=== PATIENT | female | born 1975 | race Caucasian/White ===

== ENCOUNTER 2018-03-02 21:01 | Emergency (ER) | payer MEDICAID, SELFPAY ==
[2018-03-02 21:02] VITALS: BP 147/102; PULSE 79; RESP 18; TEMP 36.5; O2SAT 100; BMI 34.2
--- NOTE | 2018-03-02 21:25 | ED.VISSUMM ---
- ER Visit Summary Date of Service: 03/02/18 Chief Complaint: Left leg pain History of Present Illness: The patient is a 42 F who goes to the [facility]. She reports that she noticed bruising of the medial side of her left leg 3 days ago. She denies any trauma. No fall, MVA, or change in activity. She reports that she has sharp pain is 3 out of 10 when she touches it. She is pain-free otherwise. She denies any paresthesias distally. She is concerned that she may have a DVT. She has never had a DVT, but her father has. No recent travel. No ankle swelling. No chest pain or shortness of breath. Physical Examination: Vitals: Stable. Afebrile. General: Well-nourished and well-developed. Head: Normocephalic atraumatic. Neck: Supple, no lymphadenopathy. No JVD. Nontender. Cardiovascular: Regular rate and rhythm. No murmurs. Respiratory: No respiratory distress. Clear to auscultation bilaterally. Abdominal: Soft, nontender, nondistended, normal bowel sounds. No guarding, rebound, or peritoneal signs. Back: Nontender. Extremities: Approximately 8 cm contusion to the medial left calf proximally. no edema. Skin: Normal color, no rash. Neurologic: Alert and oriented ?3. Cranial nerves II through XII are intact. Normal strength and sensation. Psych: Normal affect. Test Results: Left lower extremity Doppler was negative. Emergency Department Course and Treatment: Patient was reassured. She refused pain medications. Treatment Plan: Patient be discharged instructions to follow-up the [facility] as needed. Disposition: To home in improved and stable condition. Impression: 1. Contusion left leg. This note was generated with [employer] software. It may contain incorrect words, spelling, and punctuation that were not noted in review of the chart prior to signing ED Disposition - Plan for ED Patient: Chief Complaint: Lower Extremity Injury Instructions: ED Contusion Lower Ext Referrals: [facility] [NON-STAFF] - As Needed
== END 2018-03-02 22:00 | disposition home or self-care (01) ==
PROVIDERS: Emergency Provider Emergency Medicine
DX: S80.12XA Contusion of left lower leg, initial encounter (principal); E11.9 Type 2 diabetes mellitus without complications; G62.9 Polyneuropathy, unspecified; Z79.4 Long term (current) use of insulin; Z79.899 Other long term (current) drug therapy; X58.XXXA Exposure to other specified factors, initial encounter; Y93.9 Activity, unspecified; Y92.9 Unspecified place or not applicable; Y99.9 Unspecified external cause status
CPT/HCPCS: 93971; 99282

== ENCOUNTER 2018-05-08 11:11 | Emergency (ER) | payer SELFPAY ==
[2018-05-08 11:13] VITALS: BP 167/88; PULSE 81; RESP 18; TEMP 36.4; O2SAT 95; BMI 34.7
[2018-05-08] MEDS: 0.9% Normal Saline 1,000 ML 1000 ML IV (11:47)
[2018-05-08 12:02] LABS: Absolute Lymphocyte Count 2.27 X10^3/ul (0.83-4.51); Absolute Neutrophil Count 5.7 X10^3/uL (2.0-7.7); Basophil# 0.03 X10^3/uL; Basophil% 0.4 % (0-1); Eosinophils% 1.2 % (0-5); Hematocrit 39.5 % (37-47); Hemoglobin 13.4 g/dl (12.0-15.0); Lymphocyte # 2.27 X10^3/ul (4.0); Lymphocyte % 26.5 % (19-41); Mean Corp Hgb Conc 33.9 g/gl (32-36); Mean Corpuscular Hgb 31.1 pg (27.0-32.0); Mean Corpuscular Volume 91.6 fL (81-99); Mean Platelet Vol. 10.5 fl (6.2-12.0); Monocyte# 0.43 X10^3/uL; Neutrophil # 5.71 X10^3/uL (2.7-7.7); Neutrophil % 66.7 % (47-70); POSITIVE COUNT NO; POSITIVE DIFFERENTIAL NO; POSITIVE MORPHOLOGY NO; Platelet Count 264 K/mm3 (150-450); RBC Distribution Width CV 12.6 % (11.6-14.6); RBC Distribution Width SD 41.2 fl (35.1-43.9); Red Blood Count 4.31 M/mm3 (4.2-5.4); White Blood Count 8.6 K/mm3 (4.4-11.0)
[2018-05-08 12:15] LABS: Mucous, Urine 0 SEEN /hpf (<or=2+); Red Blood Cells-Urine 0 SEEN /hpf (0-5)
[2018-05-08 12:16] LABS: AST(SGOT) 10 U/L (15-37); Alanine Aminotransfer ALT/SGPT 17 U/L (13-56); Albumin, Serum 3.3 g/dL (3.2-5.0); Alkaline Phosphatase 86 U/L (45-117); Anion Gap 7 (5-15); BUN 14 mg/dL (7-18); BUN/Creat Ratio 13.5 RATIO (10-20); Bilirubin, Direct 0.09 mg/dL (0.00-0.30); Calcium,Total 8.7 mg/dL (8.5-10.1); Chloride 101 mmol/L (98-107); Creatinine, Serum 1.04 mg/dL (0.55-1.02); EST Glomerular Filtration Rate 62 mL/min (>60); Est Glom Filt Rate - Afr Amer 75 mL/min (>60); Estimated Creatinine Clearance 62.09 ml/min; Globulin 4.4 g/dL (2.2-4.2); Glucose 148 mg/dL (74-106); Lipase 134 U/L (73-393); Potassium 3.8 mmol/L (3.5-5.1); Protein, Total 7.7 g/dL (6.4-8.2); Sodium Level 136 mmol/L (136-145)
[2018-05-08 12:17] LABS: Pregnancy, Serum, hCG Quali. NEGATIVE Negative (0-9 Nonpreg)
[2018-05-08 12:18] LABS: Color, Urine Yellow (Yellow); Glucose, Dipstick Normal (Normal); Ketone-Dipstick Negative (Negative); Leukocyte Esterase-Dipstick 25 /ul (Negative); Nitrite-Dipstick Negative (Negative); Occult Blood-Urine Negative /ul (Negative); Protein-Dipstick Negative (Negative); Urine Bilirubin Dipstick Negative (Negative); Urine Clarity Clear (Clear); Urine Urobilinogen Normal (Normal)
[2018-05-08 12:24] LABS: Bacteria 1+ /hpf (None Seen); Squamous Epithelial Cells - UA 0-5 SEEN /hpf (5-10); White Blood Cells 0-5 SEEN /hpf (0-5)
--- NOTE | 2018-05-08 12:37 | ED.DCSUM_ITS ---
- ER Visit Summary Date of Service: 05/08/18 Chief Complaint: Abdominal pain History of Present Illness: The patient is a 42 F who goes to the [facility]. She reports that she has abdominal pain began 3 days ago. Is intermittent pain last hours at a time. She describes it as cramping. 7-10 at worst and 410 currently. Is worsened by laying on his stomach. Is unchanged with food. She reports that she would been relieved by nothing. She denies any associated nausea, vomiting, diarrhea. Last bowel was today. She had no melena or hematochezia. She is passing flatus. She denies any dysuria or frequency. Last menstrual rate was 2 weeks ago. No vaginal bleeding or discharge. Physical Examination: Vitals: Stable. Afebrile. General: Well-nourished and well-developed. Head: Normocephalic atraumatic. Neck: Supple, no lymphadenopathy. No JVD. Nontender. Cardiovascular: Regular rate and rhythm. No murmurs. Respiratory: No respiratory distress. Clear to auscultation bilaterally. Abdominal: Soft, nontender, nondistended, normal bowel sounds. No guarding, rebound, or peritoneal signs. Back: Nontender. Extremities: Nontender, no edema. Skin: Normal color, no rash. Neurologic: Alert and oriented ?3. Cranial nerves II through XII are intact. Normal strength and sensation. Psych: Normal affect. Test Results: CBC is normal. Chem-7 is more for glucose 148 and creatinine 1.04. LFTs marked for globulin 4.4 and AST of 10. Lipase normal. UA is negative. test is negative. Emergency Department Course and Treatment: Patient refused pain and nausea medications. She is resting comfortably. Treatment Plan: Patient be discharged instructed to use Zofran for nausea as needed. Follow-up her primary care physician 1-2 days not improving. Return to the emergency department for any worsening symptoms. Disposition: To home in improved and stable condition. Impression: 1. Abdominal pain, uncertain cause. This note was generated with [employer] dictation software. It may contain incorrect words, spelling, and punctuation that were not noted in review of the chart prior to signing ED Disposition - Plan for ED Patient: Disposition: Home or Assisted Living Chief Complaint: Abd Pain Instructions: ED Abdominal Pain Unkn Cause Prescriptions: Ondansetron [Zofran Odt] 4 mg PO Q8H PRN PRN #10 tablet PRN Reason: Nausea Referrals: [facility] [Primary Care Provider] - 1-2 Days if not improving
[2018-05-08 12:41] VITALS: BP 142/72; PULSE 83; RESP 16; O2SAT 98
== END 2018-05-08 12:44 | disposition home or self-care (01) ==
LOC: ED 11:48
PROVIDERS: Emergency Provider Emergency Medicine
DX: R10.9 Unspecified abdominal pain (principal); K21.9 Gastro-esophageal reflux disease without esophagitis; E11.9 Type 2 diabetes mellitus without complications; Z79.84 Long term (current) use of oral hypoglycemic drugs; Z79.899 Other long term (current) drug therapy
CPT/HCPCS: 80048; 80076; 81001; 83690; 84703; 85025; 99283; J7030

== ENCOUNTER → 2018-06-17 09:18 | Outpatient (CLI) | payer SELFPAY ==
--- NOTE | 2018-06-17 09:21 | BI_ITS ---
MAMMOGRAPHY - BILATERAL SCREENING REASON FOR EXAM: Female, 42 years old. Routine annual screening examination. PERTINENT HISTORY: Grandmother with breast cancer. TECHNIQUE: Digital bilateral breast marcellus (3D mammographic acquisition) in the CC and MLO projections. 2-D mediolateral oblique (MLO) and craniocaudad (CC) views of both breasts were obtained. CAD: Full Field Digital Mammography with Computer Added Detection was performed. COMPARISON: None. Baseline examination. FINDINGS: Breast Composition: There are scattered areas of fibroglandular density. There are no dominant masses or suspicious calcifications. Benign appearing bilateral axillary lymph nodes. No other significant abnormalities are identified. BI/SCREENING MAMM (CAD), BILAT IMPRESSION: Negative screening mammogram. Yearly followup mammogram recommended. (A) ASSESSMENT CATEGORY: BIRADS Category 2: Benign. A letter regarding these results will be sent to the patient by the facility within 30 days. Approximately 10% of breast cancers are not detected by mammography. A normal mammogram should not delay biopsy of a clinically suspicious abnormality. [id number] Electronically Signed: Quirino Khan MD at 11:26 EST Tel [phone], Service support ,
--- OUTSIDE RECORDS SUMMARY | 2018-08-02 22:34 | XMS RPT_ITS ---
:1975 Author Organization OHIP Care Team Providers Name Role Phone LAINEY DOTSON (CIVIL RIGHTS INVESTIGATOR) Referring Unavailable CLINIC, VIOLA NOAH ALMEIDA Attending Unavailable CLINIC, [facility] IFEANYIMAN FREE Primary Care Unavailable Rolando Ellis Attending Unavailable Opal Bryan MASTER MERCHANDISER-C Referring Unavailable Opal Bryan MASTER MERCHANDISER-C Primary Care Unavailable Rloando Ellis Attending Unavailable Opal Bryan MASTER MERCHANDISER-C Referring Unavailable Opal Bryan MASTER MERCHANDISER-C Primary Care Unavailable Christoph Gunderson Attending Unavailable CLINIC, VIOLA STARTZMAN FREE Primary Care Unavailable Dora Carter Consulting Unavailable CLINIC, [facility] STARTZMAN FREE Primary Care Unavailable Christoph Gunderson Attending Unavailable PROBLEMS PROBLEMS DATE TYPE CONDITION / CODE ATTENDING STATUS SOURCE 04/04/2018 Active Contact with and NA Active [facility] (suspected) Main [place] exposure to 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 / Z20.2(ICD-10) 02/23/2018 Unknown S46.912A - Strain Rolando Ellis Active [place] of unspecified [facility] muscle, fascia and Hospital tendon at shoulder Repository and upper arm level, left arm, initial encounter / S46.912A(ICD-10) PROCEDURES PROCEDURES No Procedure Records FoundRESULTS RESULTS SCREENING MAMM (CAD), Observed: 06/17/2018 Status: F Source: [place] 9:21 AM [facility] REPOSITORY [facility] Imaging Services [address] [place] [address] SCREENING MAMM (CAD), BILAT MR#: [id number] Acct: [id number] Name: BRODY GALINDO Rep #: [id number] : 1975 F 42 From: Quirino Khan MD PCP: SHANTELLE THOMPSON Status: REG CLI Study: SCREENING MAMM (CAD), BILAT Date of Exam: 06/17/18 Exam# [id number] Ordering Dr: Shantelle Flores MAMMOGRAPHY - BILATERAL SCREENING REASON FOR EXAM: Female, 42 years old. Routine annual screening examination. PERTINENT HISTORY: Grandmother with breast cancer. TECHNIQUE: Digital bilateral breast marcellus (3D mammographic acquisition) in the CC and MLO projections. 2-D mediolateral oblique (MLO) and craniocaudad (CC) views of both breasts were obtained. CAD: Full Field Digital Mammography with Computer Added Detection was performed. COMPARISON: None. Baseline examination. FINDINGS: Breast Composition: There are scattered areas of fibroglandular density. There are no dominant masses or suspicious calcifications. Benign appearing bilateral axillary lymph nodes. No other significant abnormalities are identified. BI/SCREENING MAMM (CAD), BILAT IMPRESSION: Negative screening mammogram. Yearly followup mammogram recommended. (A) ASSESSMENT CATEGORY: BIRADS Category 2: Benign. A letter regarding these results will be sent to the patient by the facility within 30 days. Approximately 10% of breast cancers are not detected by mammography. A normal mammogram should not delay biopsy of a clinically suspicious abnormality. [id number] Electronically Signed: Quirino Khan MD at 11:26 EST Tel [phone], Service support , CC: SHANTELLE ZAMORA [facility] [address] Rehab Care Assistant: Signed Observed: 06/02/2018 Status: F Source: [place] [facility]Y 8:41 AM [facility] REFERENCE REPOSITORY ADDITIONAL PROCEDURES PRESENT Specimen #: [id number] Submitting Physician: LAYO TOWNSEND SPECIMEN SUBMITTED A: CERVICAL, SCREENING, FLUID FINAL DIAGNOSIS A. CERVICAL, SCREENING, FLUID Satisfactory for interpretation. Negative for intraepithelial lesion or malignancy. This specimen has been analyzed by the ThinPrep Imaging System, an automated imaging and review system, which assists the laboratory in evaluating cells on ThinPrep Pap tests. Following automated imaging, selected ruffin from every slide are reviewed by a marking room supervisor. JAY Bay(ASCP) (Electronic Signature) ADDITIONAL PROCEDURE(S) HUMAN PAPILLOMA VIRUS Date Ordered: 06/03/2018 Date Reported: 06/06/2018 Procedure Results and Interpretation Negative for HPV DNA high risk type 16 by PCR. Negative for HPV DNA high risk type 18 by PCR. Negative for HPV DNA high risk types: 31,33,35,39,45,51,52,56,58,59,66,68 by PCR. This test was developed and its performance characteristics determined by [facility] [place] ([facility]). It has not been cleared or approved by the FDA. [facility] is regulated under CLIA as qualified to perform high-complexity testing. This test is used for clinical purposes. It should not be regarded as investigational or for research. CLINICAL DATA HPV Testing: Automatic HPV typing (HPV) Date of Last Menstrual Period: unk Clinical History: ROUTINE STAINS A: CERVICAL, SCREENING, FLUID THIN PREP GLAZIER METAL FURNITURE Caroline Montiel M.D., Science Job Titles Date of Report: 06/07/2018 Date of Procedure: 06/02/2018 Date of Receipt: 06/03/2018 Submitted by: LAYO TOWNSEND Location: Diagnostic interpretation performed at [facility], [address] [place] [address]. The Pap Smear is a screening test for cervical cancer. False negative results occur with all screening tests, emphasizing the need for rescreening at recommended intervals, and clinical correlation. Performed By: #### C #### See report for performing lab information. HPV W/GENOTYPE Collected: 06/02/2018 Status: F Source: [place] 6:15 CLINIC REFERENCE REPOSITORY TYPE CODE TESTS RESULT OUT OF REFERENCE UNITS RANGE LAB HPVT16(LOIN C) HPV HighRisk NHPV16 Type 16 LAB HPVT18(LOIN C) HPV HighRisk NHPV18 Type 18 LAB HPVHRO(LOIN C) HPV HighRisk Other Result Comment: Negative for HPV DNA high risk types: 31,33,35,39,45,51,52,56,58,59,66,68 by This test was developed and its performance characteristics determined by [facility] [place] ([facility]). It has not been cleared or approved by the FDA. [facility] is regulated under CLIA as qualified to perform high-complexity testing. This test is used for clinical purposes. It should not be regarded as inv estigational or for research. PCR. This test was developed and its performance characteristics determined by [facility]'s [facility] [place] ([facility]). It has not been cleared or approved by the FDA. [facility] is regulated under CLIA as qualified to perform high-complexity testing. This test is used for clinical purposes. It should not be regarded as inv estigational or for research. EMERGENCY DEPARTMENT Observed: 05/09/2018 Status: F Source: [place] SUMMARY 5:46 PM [facility] REPOSITORY [facility] Medical Records Department [address] [place] [address] Emergency Department Summary 05/08/18 1236 MR#: [id number] Acct: [id number] Name: BRODY GALINDO Rep #: [id number] : 1975 42 From: Christoph Gunderson MD PCP: SHANTELLE ZAMORA [facility] Status: DEP ER - ER Visit Summary Date of Service: 05/08/18 Chief Complaint: Abdominal pain History of Present Illness: The patient is a 42 F who goes to the [facility]. She reports that she has abdominal pain began 3 days ago. Is intermittent pain last hours at a time. She describes it as cramping. 7-10 at worst and 410 currently. Is worsened by laying on his stomach. Is unchanged with food. She reports that she would been relieved by nothing. She denies any associated nausea, vomiting, diarrhea. Last bowel was today. She had no melena or hematochezia. She is passing flatus. She denies any dysuria or frequency. Last menstrual rate was 2 weeks ago. No vaginal bleeding or discharge. Physical Examination: Vitals: Stable. Afebrile. General: Well-nourished and well-developed. Head: Normocephalic atraumatic. Neck: Supple, no lymphadenopathy. No JVD. Nontender. Cardiovascular: Regular rate and rhythm. No murmurs. Respiratory: No respiratory distress. Clear to auscultation bilaterally. Abdominal: Soft, nontender, nondistended, normal bowel sounds. No guarding, rebound, or peritoneal signs. Back: Nontender. Extremities: Nontender, no edema. Skin: Normal color, no rash. Neurologic: Alert and oriented 3. Cranial nerves II through XII are intact. Normal strength and sensation. Psych: Normal affect. Test Results: CBC is normal. Chem-7 is more for glucose 148 and creatinine 1.04. LFTs marked for globulin 4.4 and AST of 10. Lipase normal. UA is negative. test is negative. Emergency Department Course and Treatment: Patient refused pain and nausea medications. She is resting comfortably. Treatment Plan: Patient be discharged instructed to use Zofran for nausea as needed. Follow-up her primary care physician 1-2 days not improving. Return to the emergency department for any worsening symptoms. Disposition: To home in improved and stable condition. Impression: 1. Abdominal pain, uncertain cause. This note was generated with [email or web address] dictation software. It may contain incorrect words, spelling, and punctuation that were not noted in review of the chart prior to signing ED Disposition - Plan for ED Patient: Disposition: Home or Assisted Living Chief Complaint: Abd Pain Instructions: ED Abdominal Pain Unkn Cause Prescriptions: Ondansetron [Zofran Odt] 4 mg PO Q8H PRN PRN #10 tablet PRN Reason: Nausea Referrals: Shantelle Flores [Primary Care Provider] - 1-2 Days if not improving What to do if you have Problems For any increased pain, shortness of breath, bleeding, nausea or vomiting, chest pain, or any unexpected problems, contact your Primary Care Provider. Call [facility] ([phone]) or report to the closest Emergency Room. Call 911 if necessary. 05/09/18 [id number] <Electronically signed by Christoph Gunderson MD> Date Christoph Gunderson MD Cosigner Signature (If Indicated): Date CC: [facility] URINAL[facility]IS, COMPLETE Collected: 05/08/2018 Status: F Source: [place] 12:10 PM [facility] REPOSITORY Order Comment: Order Date: 05/08/18 How was Urine Obtained? CLEAN CATCH TYPE CODE TESTS RESULT OUT OF RANGE REFERENCE UNITS LAB L400.3000 Yellow COLOR Normal Yellow LAB L400.3050 Clear Normal CLARITY Clear LAB L400.3200 Normal mg/dl Normal GLUCOSE, UR Normal LAB L400.3300 Negative mg/dL Normal BILIRUBIN URINE Negative LAB L400.3400 Negative mg/dl Normal KETONE UR Negative LAB L400.3465 1.002-1.030 Normal SP.GR. DIPSTX 1.010 LAB L400.3550 5.0 - 8.0 pH UR Normal 8.0 LAB L400.3600 Negative mg/dl PROT Normal DIPSTX Negative LAB L400.3700 Normal mg/dl Normal UROBILI Normal LAB L400.3750 Negative Normal NITRITE UR Negative LAB L400.3780 Negative /ul Normal OCCULT BLOOD-UR Negative LAB L400.3800 Negative /ul High LEUK 25 ESTERASE LAB L400.4050 0-5 /hpf WBC Normal 0-5 SEEN LAB L400.4100 0-5 /hpf 0 Normal RBC-UA SEEN LAB L400.4150 5-10 /hpf SQUAM Normal EPI 0-5 SEEN LAB L400.4300 None Seen /hpf 1+ Normal BACTERIA LAB L400.4350 <or=2+ /hpf 0 Normal MUCUS, URINE SEEN Performed By: #### L400.0001 #### [facility] [address] [place], [place], [address] CBC W/DIFF, AUTOMATED Collected: 05/08/2018 Status: F Source: [place] 11:45 AM [facility] REPOSITORY TYPE CODE TESTS RESULT OUT OF RANGE REFERENCE UNITS LAB L100.1000 4.4-11.0 K/mm3 Normal WBC 8.6 LAB L100.1200 4.2-5.4 M/mm3 Normal RBC 4.31 LAB L100.1300 12.0-15.0 g/dl Normal HGB 13.4 LAB L100.1400 37-47 % Normal HCT 39.5 LAB L100.1500 81-99 fL Normal MCV 91.6 LAB L100.1600 27.0-32.0 pg Normal MCH 31.1 LAB L100.1700 32-36 g/gl Normal MCHC 33.9 LAB L100.1810 11.6-14.6 % Normal RDW CV 12.6 LAB L100.1820 35.1-43.9 fl Normal RDW SD 41.2 LAB L100.1900 150-450 K/mm3 Normal PLT 264 LAB L100.2000 6.2-12.0 fl Normal MPV 10.5 LAB L100.2100 47-70 % Normal NEUT% 66.7 LAB L100.2200 19-41 % Normal LY% 26.5 LAB L100.2300 0-10 % Normal MONO% 5.0 LAB L100.2400 0-5 % Normal EO% 1.2 LAB L100.2500 0-1 % Normal BASO% 0.4 LAB L100.2550 0.0-0.9 % Normal IM GRAN % 0.200 Result Comment: IG% - Immature Granulocytes (promyelocytes, myelocytes and metamyelocytes) > 1% indicates that a LEFT SHIFT is Present. LAB L100.2620 2.0-7.7 X10 3/uL Normal Absolute Neut 5.7 LAB L100.2720 0.83-4.51 X10 3/ul Normal Absolute Lymph 2.27 Performed By: #### L100.0100 #### [facility] [address] [place], [address] BASIC METABOLIC Collected: 05/08/2018 Status: F Source: [place] PROFILE ([facility]) 11:45 AM [facility] REPOSITORY TYPE CODE TESTS RESULT OUT OF RANGE REFERENCE UNITS LAB L501.0100 74-106 mg/dL High GLU 148 Result Comment: Fasting Glucose result greater than or equal to 126 mg/dL suggests DIABETES MELLITUS per A.D.A. criteria. Please note revised GLUCOSE reference range effective 2017. LAB L501.1000 7-18 mg/dL Normal BUN 14 LAB L501.1100 0.55-1.02 mg/dL High CREAT,SERUM 1.04 Result Comment: The validity of the calculated GFR AND GFRAA in patients over 70 years has not been determined. Clinical correlation is essential. LAB L501.1110 >60 mL/min Normal EST GFR 62 Result Comment: Non- GFR Calc LAB L501.1115 >60 mL/min Normal EST GFR - AA 75 Result Comment: GFR Calc LAB L501.1255 ml/min Normal Estimated CRCL 62.09 LAB L501.1300 10-20 RATIO Normal BUN/CRE 13.5 LAB L501.2200 8.5-10 mg/dL Normal .1 CA 8.7 LAB L501.5300 136-14 mmol/L Normal 5 NA 136 LAB L501.5600 3.5-5. mmol/L Normal 1 K 3.8 LAB L501.5900 98-107 mmol/L Normal CL 101 LAB L501.6100 21.0-3 mmol/L Normal 2.0 CO2 28.0 LAB L501.6200 5-15 Normal GAP 7 Performed By: #### L500.2500, L500.3400, L501.2450 #### [facility] [address] [place], [address] LIVER PROFILE Collected: 05/08/2018 Status: F Source: [place] 11:45 AM [facility] REPOSITORY TYPE CODE TESTS RESULT OUT OF RANGE REFERENCE UNITS LAB L501.1500 6.4-8.2 g/dL Normal T PROT 7.7 LAB L501.1800 3.2-5.0 g/dL Normal ALB 3.3 LAB L501.1950 2.2-4.2 g/dL High GLOB 4.4 LAB L501.4100 15-37 U/L Low AST 10 LAB L501.4305 45-117 U/L Normal ALK P 86 LAB L501.4405 13-56 U/L Normal ALT 17 LAB L501.4600 0.20-1.00 mg/dL Normal T BILI 0.30 LAB L501.4700 0.00-0.30 mg/dL Normal D BILI 0.09 Performed By: #### L500.2500, L500.3400, L501.2450 #### [facility] [address] [place], [address] LIPASE Collected: 05/08/2018 Status: F Source: [place] 11:45 AM [facility] REPOSITORY TYPE CODE TESTS RESULT OUT OF RANGE REFERENCE UNITS LAB L501.2450 73-393 U/L Normal LIPASE 134 Performed By: #### L500.2500, L500.3400, L501.2450 #### [facility] [address] [place], [address] ,SERUM,HCG QUALI. Collected: Status: F Source: [place] 05/08/2018 11:45 AM [facility] REPOSITORY TYPE CODE TESTS RESULT OUT OF REFERENCE UNITS RANGE LAB L700.6700 =>Qualitative mIU/mL Normal HCG Qual < 1 triggr LAB L700.7000 0-9 Nonpreg Negative Normal HCGSQUAL NEGATIVE Performed By: #### L700.6800 #### [facility] [address] [place], [address] PROGRESS Observed: 05/08/2018 Status: COMPLETED Source: [place] 10:43 AM [facility] REPOSITORY HNO ID: [id number] Author: Lorie Savage) [place]oy Service: (none) Author Type: Physician Termite Control Technician Type: Progress Notes Filed: 05/08/2018 11:24 AM Note Text: Subjective HPI HPI Brody Galindo is a 42 year old female who presents today for CC of epigastric pressure- it feels real tight and hard. Notes that the discomfort is more noticeable when she's laying on her abdomen. She said it has been going on for about 3 days. She states it's about a 6/10 on the pain scale. States it has been constant for the past few hours. Normal appetite. Voiding fine (both urinating and BMs). Did states that she feels as though she has to push harder to get urine out. Has not taken anything for the symptoms. Notes a history of acid reflux, but does not take anything for this (practices avoidance diet). Has never had this discomfort before. BP 120/84 Pulse 76 Temp 36.9 ?C (98.5 ?F) (Tympanic) Resp 16 Wt 91.6 kg (202 lb) SpO2 97% ALLERGIES Allergen Reactions - Nka [Other] There is no problem list on file for this patient. No family history on file. Social History Marital status: Single Spouse name: Years of education: Number of children: Social History Main Topics Smoking status: Never Smoker Smokeless tobacco: Never Used Alcohol use: No Review of Systems Constitutional: Negative for chills, fever and malaise/fatigue. Respiratory: Positive for shortness of breath (She said no initially, however when she got on the exam table, she stated that she felt her breathing was a bit more labored). Negative for cough (But this is normal with my acid reflux). Cardiovascular: Negative for chest pain. Gastrointestinal: Positive for abdominal pain. Negative for blood in stool, constipation, diarrhea (This at baseline with her metformin), heartburn, melena, nausea and vomiting. Genitourinary: Negative for dysuria, flank pain, frequency, hematuria and urgency. Skin: Negative for rash. Objective Physical Exam Constitutional: She is oriented to person, place, and time and well-developed, well-nourished, and in no distress. HENT: Mouth/Throat: Oropharynx is clear and moist and mucous membranes are normal. Cardiovascular: Normal rate, regular rhythm, S1 normal and S2 normal. No murmur heard. Pulmonary/Chest: Effort normal and breath sounds normal. She has no decreased breath sounds. She has no wheezes. She has no rhonchi. She has no rales. Abdominal: Soft. Normal appearance and bowel sounds are normal. There is no hepatosplenomegaly, splenomegaly or hepatomegaly. There is no tenderness. There is no CVA tenderness. Discomfort in outlined area- however she states it does not make it feel any worse upon palpation to region Neurological: She is alert and oriented to person, place, and time. Skin: Skin is warm and dry. No rash noted. ASSESSMENT/PLAN: 1. Abdominal pressure - ICD9: 789.00, ICD10: R10.9 - Urine dip negative, but explained to pt that other intrabdominal processes could not be safely ruled out- pt told that she should be evaluated further in the ED and pt expressed understanding and agreed - headed to [place] ABDULLAHI Maldonado Observed: 05/08/2018 Status: COMPLETED Source: [place] 10:30 AM [facility] REPOSITORY Office Visit (WSTR) BRODY GALINDO ([id number]) 1975 F Date Time Provider Department 05/08/18 10:30 AM LORIE LYONS (PA) [facility] During your visit today, we recorded the following information about you: Temperature Pulse Respiration Blood pressure 98.5 degrees 76/minute 16/minute 120/84 Weight 91.6 kg Lorie Lyons PA-C 05/08/2018 11:24 AM Signed Subjective HPI HPI Brody Galindo is a 42 year old female who presents today for CC of epigastric pressure- it feels real tight and hard. Notes that the discomfort is more noticeable when she's laying on her abdomen. She said it has been going on for about 3 days. She states it's about a 6/10 on the pain scale. States it has been constant for the past few hours. Normal appetite. Voiding fine (both urinating and BMs). Did states that she feels as though she has to push harder to get urine out. Has not taken anything for the symptoms. Notes a history of acid reflux, but does not take anything for this (practices avoidance diet). Has never had this discomfort before. BP 120/84 Pulse 76 Temp 36.9 ?C (98.5 ?F) (Tympanic) Resp 16 Wt 91.6 kg (202 lb) SpO2 97% ALLERGIES Allergen Reactions - Nka [Other] There is no problem list on file for this patient. No family history on file. Social History Marital status: Single Spouse name: Years of education: Number of children: Social History Main Topics Smoking status: Never Smoker Smokeless tobacco: Never Used Alcohol use: No Review of Systems Constitutional: Negative for chills, fever and malaise/fatigue. Respiratory: Positive for shortness of breath (She said no initially, however when she got on the exam table, she stated that she felt her breathing was a bit more labored). Negative for cough (But this is normal with my acid reflux). Cardiovascular: Negative for chest pain. Gastrointestinal: Positive for abdominal pain. Negative for blood in stool, constipation, diarrhea (This at baseline with her metformin), heartburn, melena, nausea and vomiting. Genitourinary: Negative for dysuria, flank pain, frequency, hematuria and urgency. Skin: Negative for rash. Objective Physical Exam Constitutional: She is oriented to person, place, and time and well-developed, well-nourished, and in no distress. HENT: Mouth/Throat: Oropharynx is clear and moist and mucous membranes are normal. Cardiovascular: Normal rate, regular rhythm, S1 normal and S2 normal. No murmur heard. Pulmonary/Chest: Effort normal and breath sounds normal. She has no decreased breath sounds. She has no wheezes. She has no rhonchi. She has no rales. Abdominal: Soft. Normal appearance and bowel sounds are normal. There is no hepatosplenomegaly, splenomegaly or hepatomegaly. There is no tenderness. There is no CVA tenderness. Discomfort in outlined area- however she states it does not make it feel any worse upon palpation to region Neurological: She is alert and oriented to person, place, and time. Skin: Skin is warm and dry. No rash noted. ASSESSMENT/PLAN: 1. Abdominal pressure - ICD9: 789.00, ICD10: R10.9 - Urine dip negative, but explained to pt that other intrabdominal processes could not be safely ruled out- pt told that she should be evaluated further in the ED and pt expressed understanding and agreed - headed to [facility] ABDULLAHI Solorio PA-C 05/08/2018 10:57 AM Signed Urine dip negative- but unable to rule out other abdominal processes- recommend further evaluation in the ED Referring Provider: SELF [200] Allergies As of Date: 05/08/2018 Noted Allergy Reaction Nka [Other] 01/04/2003 Date Reviewed: 05/08/2018 Reviewed by: Karol Tillman Ma - Fully Assessed Reason for Visit: Abdominal Pain [1] Cmt: pressure x 3 days Primary Visit Diagnosis:Abdominal pressure [R10.9] Order(s):UA DIP, URINE (POC) [[id number]] Order #: [id number] #:[id number] Prescriptions as of 05/08/2018 Sig: OXYBUTYNIN CHLORIDE ER 10 MG * Take 10 mg by mouth once usmmer* METFORMIN ER 500 MG 24 HR TAB* Take 500 mg by mouth daily wi* GABAPENTIN ORAL Take by mouth. 2 tabs 3x kj* MEDICATION, NON-DATABASE Blood pressure medication, pt* LOSARTAN 25 MG TABLET CYCLOBENZAPRINE 5 MG TABLET Take 1 tablet by mouth three * Patient not taking: Reported on 05/08/2018 Problem List As Of Date: 05/08/2018 (None) Other instructions from your clinician: Urine dip negative- but unable to rule out other abdominal processes- recommend further evaluation in the ED Encounter Status:Closed by LORIE LYONS on 05/08/18 HEPATITIS REMOTE PANEL Collected: 04/04/2018 Status: F Source: [place] 10:04 AM [facility] REPOSITORY TYPE CODE TESTS RESULT OUT OF REFERENCE UNITS RANGE LAB AHBCOT Negative Hep B Core Ab,Total Negative LAB AHCV Negative Hepatitis C Ab Negative IA LAB HBSAGR Negative HBsAg Negative LAB AHBSAG Negative HepB Surface Ab,Qual Negative Result Comment: NEGATIVE Performed By: #### HREMOP #### [facility] [address] [place], [place] [address] PROGRESS Observed: 04/04/2018 Status: COMPLETED Source: [place] 9:35 AM [facility] REPOSITORY HNO ID: [id number] Author: Lainey (Guido) Makenzie Service: (none) Author Type: Nurse Practitioner Type: Progress Notes Filed: 04/04/2018 10:52 AM Note Text: Subjective The history is provided by the patient. No speech and language clinician was used. HPI Brody Galindo is a 42 year old female who presents today for CC of std testing and desires test. She did not have a period in March. She does have a history of irregular periods, see At [facility] for management. She also states current partner was told on Wednesday that he tested positive for Hep C. She denies any ill symptoms. She is not currently seeing Dr. Roberto, and desires to see provider here at [facility]. BP 142/86 Pulse 66 Temp 36.8 ?C (98.2 ?F) (Tympanic) Resp 16 Wt 91.3 kg (201 lb 3.2 oz) ALLERGIES Allergen Reactions - Nka [Other] There is no problem list on file for this patient. No family history on file. Social History Marital status: Single Spouse name: Years of education: Number of children: Social History Main Topics Smoking status: Never Smoker Smokeless tobacco: Never Used Alcohol use: No PAST MEDICAL HISTORY Diagnosis Date - Diabetes mellitus type 2, uncomplicated (HCC) - Diabetic neuropathy (HCC) Review of Systems Constitutional: Negative for chills, fever and malaise/fatigue. Gastrointestinal: Negative for abdominal pain. Genitourinary: Negative for dysuria, flank pain, frequency, hematuria and urgency. Irregular menses, No period in March. Skin: Negative for rash. Neurological: Negative for headaches. Objective Physical Exam Constitutional: She is oriented to person, place, and time and well-developed, well-nourished, and in no distress. HENT: Head: Normocephalic and atraumatic. Eyes: Pupils are equal, round, and reactive to light. Conjunctivae and EOM are normal. Neck: Normal range of motion. Neck supple. Pulmonary/Chest: Effort normal. Abdominal: Soft. There is no hepatosplenomegaly. There is no tenderness. There is no rigidity, no rebound, no guarding and no CVA tenderness. Neurological: She is alert and oriented to person, place, and time. Skin: Skin is warm. Psychiatric: Affect normal. Nursing note and vitals reviewed. CNOV Observed: 04/04/2018 Status: COMPLETED Source: [place] 9:30 AM [facility] REPOSITORY Office Visit (WSTR) DIANAMENDELBRODY BERRIOS ([id number]) 1975 F Date Time Provider Department 04/04/18 9:30 AM LAINEY DOTSON ([facility]) [facility] During your visit today, we recorded the following information about you: Temperature Pulse Respiration Blood pressure 98.2 degrees 66/minute 16/minute 142/86 Weight 91.3 kg Lainey Dotson APRN.CNP 04/04/2018 10:52 AM Signed Subjective The history is provided by the patient. No speech and language clinician was used. ZEESHAN Brody Felizmakangeline is a 42 year old female who presents today for CC of std testing and desires test. She did not have a period in March. She does have a history of irregular periods, see At [facility] for management. She also states current partner was told on Wednesday that he tested positive for Hep C. She denies any ill symptoms. She is not currently seeing Dr. Roberto, and desires to see provider here at [facility]. BP 142/86 Pulse 66 Temp 36.8 ?C (98.2 ?F) (Tympanic) Resp 16 Wt 91.3 kg (201 lb 3.2 oz) ALLERGIES Allergen Reactions - Nka [Other] There is no problem list on file for this patient. No family history on file. Social History Marital status: Single Spouse name: Years of education: Number of children: Social History Main Topics Smoking status: Never Smoker Smokeless tobacco: Never Used Alcohol use: No PAST MEDICAL HISTORY Diagnosis Date - Diabetes mellitus type 2, uncomplicated (HCC) - Diabetic neuropathy (HCC) Review of Systems Constitutional: Negative for chills, fever and malaise/fatigue. Gastrointestinal: Negative for abdominal pain. Genitourinary: Negative for dysuria, flank pain, frequency, hematuria and urgency. Irregular menses, No period in March. Skin: Negative for rash. Neurological: Negative for headaches. Objective Physical Exam Constitutional: She is oriented to person, place, and time and well-developed, well-nourished, and in no distress. HENT: Head: Normocephalic and atraumatic. Eyes: Pupils are equal, round, and reactive to light. Conjunctivae and EOM are normal. Neck: Normal range of motion. Neck supple. Pulmonary/Chest: Effort normal. Abdominal: Soft. There is no hepatosplenomegaly. There is no tenderness. There is no rigidity, no rebound, no guarding and no CVA tenderness. Neurological: She is alert and oriented to person, place, and time. Skin: Skin is warm. Psychiatric: Affect normal. Nursing note and vitals reviewed. Lainey Dotson APRN.CIVIL RIGHTS INVESTIGATOR 04/04/2018 10:52 AM Signed ASSESSMENT/PLAN: 1. Primary amenorrhea - ICD9: 626.0, ICD10: N91.0 (primary diagnosis) If no cycle in April advise to follow up with [facility] for further evaluation - HCG QUAL UR B/O 2. Exposure to STD - ICD9: V01.6, ICD10: Z20.2 Will check hepatitis panel, set up follow up visit on 04/07/18 with Norman Herrera CNP - HEP REMOTE PANEL Referring Provider: SELF [200] Allergies As of Date: 04/04/2018 Noted Allergy Reaction Nka [Other] 01/04/2003 Date Reviewed: 04/04/2018 Reviewed by: Lainey Dotson - Fully Assessed Reason for Visit: STd check and check [Other] Cmt: STD and check Primary Visit Diagnosis:Primary amenorrhea [N91.0] Other Visit Diagnosis:Exposure to STD [Z20.2] Order(s):HCG QUAL UR B/O [[id number]] Order #: [id number] HEP REMOTE PANEL [SQHREMOP] Order #: [id number] FUTURE Prescriptions as of 04/04/2018 Sig: OXYBUTYNIN CHLORIDE ER 10 MG * Take 10 mg by mouth once summer* CYCLOBENZAPRINE 5 MG TABLET Take 1 tablet by mouth three * METFORMIN ER 500 MG 24 HR TAB* Take 500 mg by mouth daily wi* GABAPENTIN ORAL Take by mouth. 2 tabs 3x kj* MEDICATION, NON-DATABASE Blood pressure medication, pt* Problem List As Of Date: 04/04/2018 (None) Other instructions from your clinician: ASSESSMENT/PLAN: 1. Primary amenorrhea - ICD9: 626.0, ICD10: N91.0 (primary diagnosis) If no cycle in April advise to follow up with [facility] for further evaluation - HCG QUAL UR B/O 2. Exposure to STD - ICD9: V01.6, ICD10: Z20.2 Will check hepatitis panel, set up follow up visit on 04/07/18 with Norman Herrera CNP - HEP REMOTE PANEL Encounter Status:Closed by LAINEY DOTSON CNP on 04/04/18 PROGRESS Observed: 03/16/2018 Status: COMPLETED Source: [place] 8:29 AM [facility] REPOSITORY O ID: [id number] Author: Juaquin Pelletier Service: (none) Author Type: Nurse Practitioner Type: Progress Notes Filed: 03/16/2018 8:47 AM Note Text: Subjective HPI Brody Galindo is a 42 year old female who presents with right hip pain that radiates to her leg. She awoke with the pain yesterday. She rates the pain a 6/10, describes as aching and tingling. She has taken nothing for the pain. She denies injury. Review of Systems Constitutional: Negative. Negative for fever. Musculoskeletal: Positive for back pain (chronic lower back pain) and joint pain. Negative for falls. Skin: Negative. Negative for rash. BP 120/80 Pulse 62 Temp 36.8 ?C (98.2 ?F) (Left Tympanic) Resp 16 Wt 91.6 kg (202 lb) PAST MEDICAL HISTORY Diagnosis Date - Diabetes mellitus type 2, uncomplicated (HCC) - Diabetic neuropathy (HCC) ALLERGIES Nka [Other] MEDICATIONS oxybutynin ER (DITROPAN XL) 10 mg 24 hr tablet Take 10 mg by mouth once daily. metFORMIN ER (GLUMETZA) 500 mg 24 hr tablet Take 500 mg by mouth daily with breakfast. GABAPENTIN ORAL Take by mouth. 2 tabs 3x daily MEDICATION, NON-DATABASE Blood pressure medication, pt unsure of name benzonatate (TESSALON PERLES) 100 mg capsule Take 1 capsule by mouth three times daily as needed for Cough. albuterol HFA (PROVENTIL HFA, VENTOLIN HFA) 90 mcg/actuation inhaler Inhale 2 Puffs as instructed every 6 hours as needed for Wheezing/Shortness of Breath. No family history on file. Social History Substance Use Topics - Smoking status: Never Smoker - Smokeless tobacco: Never Used - Alcohol use No Objective Physical Exam Constitutional: She is well-developed, well-nourished, and in no distress. Cardiovascular: Normal rate. Pulmonary/Chest: Effort normal. Musculoskeletal: Lumbar back: She exhibits pain and spasm. She exhibits normal range of motion, no tenderness, no bony tenderness, no swelling, no edema and no deformity. Right upper leg: She exhibits tenderness. She exhibits no bony tenderness, no swelling, no edema, no deformity and no laceration. Legs: Neurological: She is alert. Reflex Scores: Patellar reflexes are 2+ on the right side and 2+ on the left side. Skin: Skin is warm and dry. No rash noted. No erythema. Nursing note and vitals reviewed. ASSESSMENT/PLAN: 1. Sciatica, right side - ICD9: 724.3, ICD10: M54.31 Sciatica - Ice for localized tenderness - Muscle relaxant- see orders - Patient given instructions use of medications as ordered, intermittent rest and stretching. - CYCLOBENZAPRINE 10 MG tablet - Follow-up with your PCP in 3-5 days if symptoms have not improved or sooner if symptoms worsen - Discussed red flags and need for immediate medical evaluation if any occur. - Discussed supportive care treatment with fluids, rest and analgesia. - Discussed expected course of illness Juaquin Pelletier APRN.CNP CNOV Observed: 03/16/2018 Status: COMPLETED Source: [place] 8:15 AM [facility] REPOSITORY Office Visit ([facility]) KELVINBRODY MARCUS ([id number]) 1975 F Date Time Provider Department 03/16/18 8:15 AM JUAQUIN PELLETIER ([place]) [facility] During your visit today, we recorded the following information about you: Temperature Pulse Respiration Blood pressure 98.2 degrees 62/minute 16/minute 120/80 Weight 91.6 kg Juaquin Pelletier APRN.CNP 03/16/2018 8:47 AM Signed Subjective HPI Brody Galindo is a 42 year old female who presents with right hip pain that radiates to her leg. She awoke with the pain yesterday. She rates the pain a 6/10, describes as aching and tingling. She has taken nothing for the pain. She denies injury. Review of Systems Constitutional: Negative. Negative for fever. Musculoskeletal: Positive for back pain (chronic lower back pain) and joint pain. Negative for falls. Skin: Negative. Negative for rash. BP 120/80 Pulse 62 Temp 36.8 ?C (98.2 ?F) (Left Tympanic) Resp 16 Wt 91.6 kg (202 lb) PAST MEDICAL HISTORY Diagnosis Date - Diabetes mellitus type 2, uncomplicated (HCC) - Diabetic neuropathy (HCC) ALLERGIES Nka [Other] MEDICATIONS oxybutynin ER (DITROPAN XL) 10 mg 24 hr tablet Take 10 mg by mouth once daily. metFORMIN ER (GLUMETZA) 500 mg 24 hr tablet Take 500 mg by mouth daily with breakfast. GABAPENTIN ORAL Take by mouth. 2 tabs 3x daily MEDICATION, NON-DATABASE Blood pressure medication, pt unsure of name benzonatate (TESSALON PERLES) 100 mg capsule Take 1 capsule by mouth three times daily as needed for Cough. albuterol HFA (PROVENTIL HFA, VENTOLIN HFA) 90 mcg/actuation inhaler Inhale 2 Puffs as instructed every 6 hours as needed for Wheezing/Shortness of Breath. No family history on file. Social History Substance Use Topics - Smoking status: Never Smoker - Smokeless tobacco: Never Used - Alcohol use No Objective Physical Exam Constitutional: She is well-developed, well-nourished, and in no distress. Cardiovascular: Normal rate. Pulmonary/Chest: Effort normal. Musculoskeletal: Lumbar back: She exhibits pain and spasm. She exhibits normal range of motion, no tenderness, no bony tenderness, no swelling, no edema and no deformity. Right upper leg: She exhibits tenderness. She exhibits no bony tenderness, no swelling, no edema, no deformity and no laceration. Legs: Neurological: She is alert. Reflex Scores: Patellar reflexes are 2+ on the right side and 2+ on the left side. Skin: Skin is warm and dry. No rash noted. No erythema. Nursing note and vitals reviewed. ASSESSMENT/PLAN: 1. Sciatica, right side - ICD9: 724.3, ICD10: M54.31 Sciatica - Ice for localized tenderness - Muscle relaxant- see orders - Patient given instructions use of medications as ordered, intermittent rest and stretching. - CYCLOBENZAPRINE 10 MG tablet - Follow-up with your PCP in 3-5 days if symptoms have not improved or sooner if symptoms worsen - Discussed red flags and need for immediate medical evaluation if any occur. - Discussed supportive care treatment with fluids, rest and analgesia. - Discussed expected course of illness DINORAH Holloway APRN.CNP 03/16/2018 8:35 AM Signed Take medications as prescribed. You may also take tylenol. Apply ice pack to painful area. If not improving in 3-5 days, or you have worsening symptoms, see your primary care provider for recheck. SCIATICA: Your exam shows you have sciatica, a condition most often seen in patients with disc disease of the lower back. Sciatica causes pain to radiate from the lower back or buttock area down the leg. It results from pressure on nerve roots coming out of the spine when a disc deteriorates and pushes to one side. Often there is a history of back problems. In most cases sciatica improves greatly with conservative treatment. Most patients with it are completely better after 2-4 weeks of bed rest and other supportive care. Bed rest reduces the disc pressure greatly; sitting is the worst position since the pressure on the disc is over 5 times greater than it is while lying down. You should avoid bending, lifting, and all other activities which make the problem worse. After the pain improves, you may continue with normal activity, taking brief periods for bed rest throughout the day until you are back to normal. Aspirin, ibuprofen, or other anti-inflammatory drugs are often used to help control pain. Muscle relaxants may help by relieving spasm and providing mild sedation. Cold or heat therapy and massage may also give significant relief. Spinal manipulation is not recommended because it can increase the degree of disc protrusion. Surgery is reserved for patients that do not improve with conservative treatment, or who have signs of severe nerve root pressure. You should see your doctor for follow up care as recommended. A program for back injury rehabilitation with stretching and strengthening exercises is an important part of management. Please call your doctor, a back specialist, or the emergency room right away if you notice increased pain, weakness, or numbness in your legs, or if you have any difficulty with bladder or bowel control. Referring Provider: SELF [200] Allergies As of Date: 03/16/2018 Noted Allergy Reaction Nka [Other] 01/04/2003 Date Reviewed: 03/16/2018 Reviewed by: Juaquin ([facility] - Fully Assessed Reason for Visit: Hip Pain [136] Primary Visit Diagnosis:Sciatica, right side [M54.31] Order(s):cyclobenzaprine (FLEXERIL) 5 mg tabletTake 1 tablet by mouth three times daily as needed for Muscle Spasm.Disp: 15 tabletRfl: 0 Prescriptions as of 03/16/2018 Sig: OXYBUTYNIN CHLORIDE ER 10 MG * Take 10 mg by mouth once summer* METFORMIN ER 500 MG 24 HR TAB* Take 500 mg by mouth daily wi* GABAPENTIN ORAL Take by mouth. 2 tabs 3x kj* MEDICATION, NON-DATABASE Blood pressure medication, pt* CYCLOBENZAPRINE 5 MG TABLET Take 1 tablet by mouth three * Problem List As Of Date: 03/16/2018 (None) Other instructions from your clinician: Take medications as prescribed. You may also take tylenol. Apply ice pack to painful area. If not improving in 3-5 days, or you have worsening symptoms, see your primary care provider for recheck. SCIATICA: Your exam shows you have sciatica, a condition most often seen in patients with disc disease of the lower back. Sciatica causes pain to radiate from the lower back or buttock area down the leg. It results from pressure on nerve roots coming out of the spine when a disc deteriorates and pushes to one side. Often there is a history of back problems. In most cases sciatica improves greatly with conservative treatment. Most patients with it are completely better after 2-4 weeks of bed rest and other supportive care. Bed rest reduces the disc pressure greatly; sitting is the worst position since the pressure on the disc is over 5 times greater than it is while lying down. You should avoid bending, lifting, and all other activities which make the problem worse. After the pain improves, you may continue with normal activity, taking brief periods for bed rest throughout the day until you are back to normal. Aspirin, ibuprofen, or other anti-inflammatory drugs are often used to help control pain. Muscle relaxants may help by relieving spasm and providing mild sedation. Cold or heat therapy and massage may also give significant relief. Spinal manipulation is not recommended because it can increase the degree of disc protrusion. Surgery is reserved for patients that do not improve with conservative treatment, or who have signs of severe nerve root pressure. You should see your doctor for follow up care as recommended. A program for back injury rehabilitation with stretching and strengthening exercises is an important part of management. Please call your doctor, a back specialist, or the emergency room right away if you notice increased pain, weakness, or numbness in your legs, or if you have any difficulty with bladder or bowel control. Prescriptions ordered this encounter Disp Refills Start End CYCLOBENZAPRINE 5 MG TABLET 15 t* 0 03/16/2018 Route: ORAL Sig: Take 1 tablet by mouth three times daily as needed for Muscle Spasm. Medications Discontinued During This Encounter benzonatate (TESSALON PERLES) 100 mg* 30 c* 0 11/08/2015 03/16/2018 Route: ORAL Sig: Take 1 capsule by mouth three times daily as needed for Cough. Disc: Reason for discontinue is not on file. albuterol HFA (PROVENTIL HFA, VENTOL* 1 In* 2 03/25/2015 03/16/2018 Route: INHALATION Sig: Inhale 2 Puffs as instructed every 6 hours as needed for Wheezing/Shortness of Breath. Disc: Reason for discontinue is not on file. Encounter Status:Closed by JUAQUIN PELLETIER on 03/16/18 CBC AND DIFFERENTIAL Collected: 03/04/2018 Status: F Source: [place] 8:35 AM CLINIC REFERENCE REPOSITORY TYPE CODE TESTS RESULT OUT OF REFERENCE UNITS RANGE LAB WBC(LOINC) 3.70-11.00 k/uL WBC 8.55 LAB RBC(LOINC) 3.90-5.20 m/uL Low RBC 3.89 LAB HGB(LOINC) 11.5-15.5 g/dL Hemoglobin 12.0 LAB HCT(LOINC) 36.0-46.0 % Hematocrit 37.4 LAB MCV(LOINC) 80.0-100.0 fL MCV 96.1 LAB MCH(LOINC) 26.0-34.0 pG MCH 30.8 LAB MCHC(LOINC 30.5-36.0 g/dL ) MCHC 32.1 LAB RDWCV(LOIN 11.5-15.0 % C) RDW-CV 12.1 LAB PLTCT(LOIN 150-400 k/uL C) Platelet Count 286 LAB MPV(LOINC) 9.0-12.7 fL MPV 10.7 LAB ANEUT(LOIN % C) Neut% 65.0 LAB AANEUT(REINALDO 1.45-7.50 k/uL NC) Abs Neut 5.54 LAB ALYMP(LOIN % C) Lymph% 28.1 LAB AALYMP(REINALDO 1.00-4.00 k/uL NC) Abs Lymph 2.40 LAB AMONO(LOIN % C) Mingo% 5.5 LAB AAMONO(REINALDO <0.87 k/uL NC) Abs Mingo 0.47 LAB AEOS(LOINC % ) Eosin% 0.9 LAB AAEOS(LOIN <0.46 k/uL C) Abs Eosin 0.08 LAB ABASO(LOIN % C) Baso% 0.5 LAB AABASO(REINALDO <0.11 k/uL NC) Abs Baso 0.04 LAB AUNRBC(REINALDO 0 /100 WBC NC) NRBCs 0.0 LAB ABNRBC(REINALDO <0.01 k/uL NC) Absolute nRBC <0.01 LAB DTYP(LOINC ) DTYPE ADIFF COMP METABOLIC PANEL Collected: 03/04/2018 Status: F Source: [place] 8:35 AM CLINIC REFERENCE REPOSITORY TYPE CODE TESTS RESULT OUT OF REFERENCE UNITS RANGE LAB TP(LOINC) 6.3-8.0 g/dL Protein, Total 7.5 LAB ALB(LOINC) 3.9-4.9 g/dL Albumin 4.1 LAB CA(LOINC) 8.5-10.2 mg/dL Calcium, Total 8.6 LAB TBIL(LOINC 0.2-1.3 mg/dL ) Bilirubin, Total 0.6 LAB ALKP(LOINC 32-117 U/L ) Alkaline Phosphatase 62 LAB AST(LOINC) 13-35 U/L AST 19 LAB GLU(LOINC) 74-99 mg/dL Glucose 89 LAB BUN(LOINC) 7-21 mg/dL BUN 14 LAB CRET(LOINC 0.58-0.96 mg/dL ) Creatinine High 1.10 LAB NA(LOINC) 136-144 mmol/L Sodium 137 LAB K(LOINC) 3.7-5.1 mmol/L Potassium 3.7 LAB CL(LOINC) 97-105 mmol/L Chloride 98 LAB CO2(LOINC) 22-30 mmol/L CO2 25 LAB AGAP(LOINC 9-18 mmol/L ) Anion Gap 14 LAB ALT(LOINC) 7-38 U/L ALT 11 LAB GFRAA(LOIN C) eGFR- >60 Amer. LAB GFRNAA(REINALDO . NC) eGFR-All Other Races 55 LIPID PANEL, BASIC Collected: 03/04/2018 Status: C Source: [place] 8:35 AM CLINIC REFERENCE REPOSITORY TYPE CODE TESTS RESULT OUT OF REFERENCE UNITS RANGE LAB CHOL(LOINC <200 mg/dL ) Cholesterol 166 LAB TRIGLY(REINALDO <150 mg/dL NC) Triglyceride 113 LAB HDL(LOINC) >39 mg/dL Low HDL-Cholesterol 37 LAB LDL(LOINC) <100 mg/dL High LDL-Cholesterol 106 LAB NONHDL(REINALDO <130 mg/dL NC) Non HDL Cholesterol 129 LAB FT(LOINC) hrs Fasting Time 12 LAB VLDL(LOINC <30 mg/dL ) VLDL Cholesterol 23 LAB TCHDL(LOIN <5.10 C) TC:HDL Ratio 4.49 LAB LDLHDL(REINALDO <2.54 NC) LDL:HDL Ratio High 2.86 FREE T4 Collected: 03/04/2018 Status: F Source: [place] 8:35 AM CLINIC REFERENCE REPOSITORY TYPE CODE TESTS RESULT OUT OF RANGE REFERENCE UNITS LAB FT4(LOINC) 0.9-1.7 ng/dL Free T4 1.2 TSH Collected: 03/04/2018 Status: F Source: [place] 8:35 AM CLINIC REFERENCE REPOSITORY TYPE CODE TESTS RESULT OUT OF RANGE REFERENCE UNITS LAB TSH(LOINC) 0.400-5.500 uU/mL TSH 1.260 HEMOGLOBIN A1C Collected: 03/04/2018 Status: F Source: [place] 8:35 AM CLINIC REFERENCE REPOSITORY TYPE CODE TESTS RESULT OUT OF REFERENCE UNITS RANGE LAB HGBA1C(REINALDO 4.3-5.6 % NC) High Hemoglobin A1c 6.0 LAB HBA0(LOINC mg/dL ) Est. Average Glucose 126 VITAMIN D 25 HYDROXY Collected: 03/04/2018 Status: F Source: [place] 8:35 AM CLINIC REFERENCE REPOSITORY TYPE CODE TESTS RESULT OUT OF REFERENCE UNITS RANGE LAB VITD(LOINC) 31.0-80.0 ng/mL Vitamin D 25 66.5 Hydroxy EMERGENCY DEPARTMENT Observed: 03/03/2018 Status: F Source: [place] SUMMARY 12:16 AM [facility] REPOSITORY [facility] Medical Records Department [address] [place] [address] Emergency Department Summary 03/02/185 MR#: [id number] Acct: [id number] Name: DIANAZOËANGELINEBRODY Rep #: [id number] : 1975 42 From: Christoph Gunderson MD PCP: SHANTELLE ZAMORA [facility] [address] Status: DEP ER - ER Visit Summary Date of Service: 03/02/18 Chief Complaint: Left leg pain History of Present Illness: The patient is a 42 F who [facility] She reports that she noticed bruising of the medial side of her left leg 3 days ago. She denies any trauma. No fall, MVA, or change in activity. She reports that she has sharp pain is 3 out of 10 when she touches it. She is pain-free otherwise. She denies any paresthesias distally. She is concerned that she may have a DVT. She has never had a DVT, but her father has. No recent travel. No ankle swelling. No chest pain or shortness of breath. Physical Examination: Vitals: Stable. Afebrile. General: Well-nourished and well-developed. Head: Normocephalic atraumatic. Neck: Supple, no lymphadenopathy. No JVD. Nontender. Cardiovascular: Regular rate and rhythm. No murmurs. Respiratory: No respiratory distress. Clear to auscultation bilaterally. Abdominal: Soft, nontender, nondistended, normal bowel sounds. No guarding, rebound, or peritoneal signs. Back: Nontender. Extremities: Approximately 8 cm contusion to the medial left calf proximally. no edema. Skin: Normal color, no rash. Neurologic: Alert and oriented 3. Cranial nerves II through XII are intact. Normal strength and sensation. Psych: Normal affect. Test Results: Left lower extremity Doppler was negative. Emergency Department Course and Treatment: Patient was reassured. She refused pain medications. Treatment Plan: Patient be discharged instructions to follow- up the [facility] as [facility]. Disposition: To home in improved and stable condition. Impression: 1. Contusion left leg. This note was generated with [email or web address] dictation software. It may contain incorrect words, spelling, and punctuation that were not noted in review of the chart prior to signing ED Disposition - Plan for ED Patient: Chief Complaint: Lower Extremity Injury Instructions: ED Contusion Lower Ext Referrals: Shantelle Zamora [NON-STAFF] - As Needed What to do if you have Problems For any increased pain, shortness of breath, bleeding, nausea or vomiting, chest pain, or any unexpected problems, contact your Primary Care Provider. Call [facility] ([phone]) or report to the closest Emergency Room. Call 911 if necessary. 03/03/18 0016 <Electronically signed by Christoph Gunderson MD> Date Christoph Gunderson MD Cosigner Signature (If Indicated): Date CC: [facility] [address] VENOUS DUPLEX Observed: 03/02/2018 Status: F Source: [place] IMAG/LIMITED/UNI 9:13 PM [facility] REPOSITORY [facility] Imaging Services [address] [place] [address] Venous Duplex Imag/Limited/Uni MR#: [id number] Acct: [id number] Name: BRODY GALINDO Rep #: [id number] : 1975 F 42 From: Silas Michael MD PCP: SHANTELLE ZAMORA [facility] [address] Status: REG ER Study: Venous Duplex Imag/Limited/Uni Date of Exam: 03/02/18 Exam# [id number] Ordering Dr: Christoph Gunderson MD STUDY: VENOUS DOPPLER ULTRASOUND - LEFT LOWER EXTREMITY REASON FOR EXAM: Female, 42 years old. Left medial calf pain and bruising TECHNIQUE: Ultrasound evaluation of the deep vein system to include conde-scale imaging and compression was performed. Conde-scale imaging and Doppler sonographic evaluation, including duplex spectral analysis and qualitative color flow sonography, was performed. COMPARISON: None. FINDINGS: Common Femoral Vein: Normal compression, spontaneity and augmentation. Normal color Doppler. Common Femoral Vein/Greater Saphenous Junction: Normal compression, no internal echoes. Deep Femoral Vein: Not imaged Femoral Proximal: Normal compression, no internal echoes. Femoral Middle: Normal compression, spontaneity and augmentation. Normal color Doppler. Femoral Distal: Normal compression, no internal echoes. Popliteal Vein: Normal compression, spontaneity and augmentation. Normal color Doppler. Posterior Tibial Vein: Normal compression, no internal echoes. Peroneal Vein: Normal compression, no internal echoes. Varicosities are seen in the region of pain/bruising of the left calf. US/Venous Duplex Imag/Limited/Uni IMPRESSION: There is no evidence of deep venous thrombosis. Varicosities are seen in the region of pain/bruising of the left calf. Electronically Signed: Silas Michael MD at 21:58 EDT , Service support , CC: Christoph Gunderson MD; SHANTELLE ZAMORA [facility] [address] Rehab Care Assistant: Signed COMP METABOLIC PANEL Collected: 11/17/2017 Status: F Source: [place] 10:23 AM CLINIC REFERENCE REPOSITORY TYPE CODE TESTS RESULT OUT OF REFERENCE UNITS RANGE LAB TP(LOINC) 6.3-8.0 g/dL Protein, Total 7.8 LAB ALB(LOINC) 3.9-4.9 g/dL Albumin 4.1 LAB CA(LOINC) 8.5-10.2 mg/dL Calcium, Total 9.1 LAB TBIL(LOINC 0.2-1.3 mg/dL ) Bilirubin, Total 0.5 LAB ALKP(LOINC 32-117 U/L ) Alkaline Phosphatase 60 LAB AST(LOINC) 13-35 U/L AST 21 LAB GLU(LOINC) 74-99 mg/dL Glucose 99 LAB BUN(LOINC) 7-21 mg/dL BUN 14 LAB CRET(LOINC 0.58-0.96 mg/dL ) Creatinine 0.84 LAB NA(LOINC) 136-144 mmol/L Sodium 141 LAB K(LOINC) 3.7-5.1 mmol/L Potassium 4.1 LAB CL(LOINC) 97-105 mmol/L Chloride 101 LAB CO2(LOINC) 22-30 mmol/L CO2 25 LAB AGAP(LOINC 9-18 mmol/L ) Anion Gap 15 LAB ALT(LOINC) 7-38 U/L ALT 15 LAB GFRAA(LOIN C) eGFR- >60 Amer. LAB GFRNAA(REINALDO . NC) eGFR-All Other Races >60 LIPID PANEL, BASIC Collected: 11/17/2017 Status: F Source: [place] 10:23 AM CLINIC REFERENCE REPOSITORY TYPE CODE TESTS RESULT OUT OF REFERENCE UNITS RANGE LAB CHOL(LOINC <200 mg/dL ) Cholesterol 195 LAB TRIGLY(REINALDO <150 mg/dL NC) Triglyceride 137 LAB HDL(LOINC) >39 mg/dL HDL-Cholesterol 45 LAB LDL(LOINC) <100 mg/dL High LDL-Cholesterol 123 LAB NONHDL(REINALDO <130 mg/dL NC) Non HDL High Cholesterol 150 LAB FT(LOINC) hrs Fasting Time 12 LAB VLDL(LOINC <30 mg/dL ) VLDL Cholesterol 27 LAB TCHDL(LOIN <5.10 C) TC:HDL Ratio 4.33 LAB LDLHDL(REINALDO <2.54 NC) LDL:HDL Ratio High 2.73 CBC AND DIFFERENTIAL Collected: 11/17/2017 Status: F Source: [place] 10:23 AM CLINIC REFERENCE REPOSITORY TYPE CODE TESTS RESULT OUT OF REFERENCE UNITS RANGE LAB WBC(LOINC) 3.70-11.00 k/uL WBC 8.68 LAB RBC(LOINC) 3.90-5.20 m/uL RBC 4.35 LAB HGB(LOINC) 11.5-15.5 g/dL Hemoglobin 13.6 LAB HCT(LOINC) 36.0-46.0 % Hematocrit 42.8 LAB MCV(LOINC) 80.0-100.0 fL MCV 98.4 LAB MCH(LOINC) 26.0-34.0 pG MCH 31.3 LAB MCHC(LOINC 30.5-36.0 g/dL ) MCHC 31.8 LAB RDWCV(LOIN 11.5-15.0 % C) RDW-CV 12.3 LAB PLTCT(LOIN 150-400 k/uL C) Platelet Count 250 LAB MPV(LOINC) 9.0-12.7 fL MPV 12.0 LAB ANEUT(LOIN % C) Neut% 68.2 LAB AANEUT(REINALDO 1.45-7.50 k/uL NC) Abs Neut 5.89 LAB ALYMP(LOIN % C) Lymph% 25.9 LAB AALYMP(REINALDO 1.00-4.00 k/uL NC) Abs Lymph 2.25 LAB AMONO(LOIN % C) Mingo% 4.8 LAB AAMONO(REINALDO <0.87 k/uL NC) Abs Mingo 0.42 LAB AEOS(LOINC % ) Eosin% 0.8 LAB AAEOS(LOIN <0.46 k/uL C) Abs Eosin 0.07 LAB ABASO(LOIN % C) Baso% 0.3 LAB AABASO(REINALDO <0.11 k/uL NC) Abs Baso 0.03 LAB AUNRBC(REINALDO 0 /100 WBC NC) NRBCs 0.0 LAB ABNRBC(REINALDO <0.01 k/uL NC) Absolute nRBC <0.01 LAB DTYP(LOINC ) DTYPE ADIFF FREE T4 Collected: 11/17/2017 Status: F Source: [place] 10:23 AM CLINIC REFERENCE REPOSITORY TYPE CODE TESTS RESULT OUT OF RANGE REFERENCE UNITS LAB FT4(LOINC) 0.9-1.7 ng/dL Free T4 1.2 TSH Collected: 11/17/2017 Status: F Source: [place] 10:23 AM [facility] REFERENCE REPOSITORY TYPE CODE TESTS RESULT OUT OF RANGE REFERENCE UNITS LAB TSH(LOINC) 0.400-5.500 uU/mL TSH 1.480 HEMOGLOBIN A1C Collected: 11/17/2017 Status: F Source: [place] 10:23 AM CLINIC REFERENCE REPOSITORY TYPE CODE TESTS RESULT OUT OF REFERENCE UNITS RANGE LAB HGBA1C(REINALDO 4.3-5.6 % NC) High Hemoglobin A1c 5.8 LAB HBA0(LOINC mg/dL ) Est. Average Glucose 120 VITAMIN D 25 HYDROXY Collected: 11/17/2017 Status: F Source: [place] 10:23 AM CLINIC REFERENCE REPOSITORY TYPE CODE TESTS RESULT OUT OF REFERENCE UNITS RANGE LAB VITD(LOINC) 31.0-80.0 ng/mL Low Vitamin D 25 10.0 Hydroxy URGENT CARE VISIT Observed: 09/01/2017 Status: F Source: [place] REPORT 7:38 AM [facility] RE[facility]IT[facility] [address] [place] [address] [address] [place] [address] OFFICE VISIT Date of Service: 09/01/17 MR#: [id number] Acct: [id number] Name: BRODY GALINDO Rep #: [id number] : 1975 Provider: Rolando MAIN Age/Sex: 41/F Location: [facility] Status: Signed Intake Vital Signs09/01/17 Height 5 ft 4.5 in Intake 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 Chief Complaint: L shoulder recheck Is patient in pain?: No Allergies No Known Allergies Allergy (Unverified 09/01/17 07:13) Medications gabapentin 300 mg capsule 300 mg PO Q8H 08/25/17 [History Confirmed 09/01/17] ibuprofen 800 mg tablet 800 mg PO TID #30 tab 08/25/17 [Rx Confirmed 09/01/17] losartan 50 mg tablet 50 mg PO QDAY 08/25/17 [History Confirmed 09/01/17] metformin 1,000 mg tablet 1,000 mg PO BID 08/25/17 [History Confirmed 09/01/17] oxybutynin chloride 5 mg tablet 5 mg PO BID 08/25/17 [History Confirmed 09/01/17] [facility] Medical History Diabetes (Acute) Incontinence (Acute) Surgical History History of foot surgery (Acute) Social History Smoking Status: Never smoker alcohol intake: never HPI HPI Chief Complaint: L shoulder recheck Details: BRODY GALINDO, is a 41 F who presents to the office today for follow-up status post left shoulder injury. This is a [facility] claim. Patient knows she is essentially asymptomatic since her last evaluation, noted she was compliant with home range of motion exercises and NSAIDs as instructed. She notes no other associated symptoms and is wishing to be released to return to work without restrictions at this time. ROS Musc Musculoskeletal: No joint pain, deformity, joint swelling, muscle cramps, tingling or numbness Neuro Neurology: No tingling or numbness Exam Const General: cooperative, healthy appearing, no acute distress Nutritional Appearance: average body habitus Orientation: alert, awake, oriented x3 Chest Chest palpation AND inspection: normal inspection of the chest Cardio Pulses: radial pulses present Musc Musculoskeletal: No joint tenderness, joint redness, joint warmth or decreased ROM Skin General: no rashes or lesions noted Neuro General: alert, awake, oriented x3, gait normal Cognition: normal cognition Speech: speech normal Gait: normal gait Motor: muscle tone normal throughout Sensory Exam: no sensory deficits noted Extrem General: normal to inspection, full ROM (L shoulder w/o palpable tenderness throughout), normal capillary refill Psych Appearance: grossly normal Mental Status: mental status grossly normal Mood: congruent mood Affect: normal affect Speech and Movement: speech and movement normal Attitude: cooperative Thought Process: normal Thought Content: normal Judgment: judgment good Assessment AND Plan Problems 1. Left shoulder strain S46.912A Plan Released without restrictions at this time. Patient states acknowledging understanding the above. This note was generated with [email or web address] dictation software. It may contain incorrect words, spelling, and punctuation that were not noted in checking the note before signing. Coding Level of Care Code Off vis,est,level 3 Diagnoses Left shoulder strain S46.912A 09/01/17 0738 <Electronically signed by Rolando MAIN> Date Rolando MAIN Cosigner Signature: Date (if applicable) CC: URGENT CARE VISIT Observed: 08/25/2017 Status: F Source: [place]LL[place] REPORT 8:35 AM [facility] REPOSIT[facility] [address] [place] [address] OFFICE VISIT Date of Service: 08/25/17 MR#: [id number] Acct: [id number] Name: BRODY GALINDO Rep #: [id number] : 1975 Provider: Rolando MAIN Age/Sex: 41/F Location: [facility] Status: Signed Intake Vital Signs08/25/17 Height 5 ft 4.5 in Intake Visit Reasons: LT SHOULDER PAIN/ WORKERS 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 Chief Complaint: Left shoulder pain Is patient in pain?: Yes (L shoulder ) Pain scale (1-10): 7 Allergies No Known Allergies Allergy (Unverified 08/25/17 08:15) Medications gabapentin 300 mg capsule 300 mg PO Q8H 08/25/17 [History Confirmed 08/25/17] ibuprofen 800 mg tablet 800 mg PO TID #30 tab 08/25/17 [Rx Confirmed 08/25/17] losartan 50 mg tablet 50 mg PO QDAY 08/25/17 [History Confirmed 08/25/17] metformin 1,000 mg tablet 1,000 mg PO BID 08/25/17 [History Confirmed 08/25/17] oxybutynin chloride 5 mg tablet 5 mg PO BID 08/25/17 [History Confirmed 08/25/17] PFSH Medical History Diabetes (Acute) Incontinence (Acute) Surgical History History of foot surgery (Acute) Social History Smoking Status: Never smoker alcohol intake: never HPI HPI Chief Complaint: Left shoulder pain Details: BRODY GALINDO, is a 41 F who presents to the office today for initial evaluation of shoulder pain. Patient states yesterday while at work while lifting product developing pain to the lateral aspect of her left shoulder. She notes a moderate aching 7/10 pain is aggravated to touch with lifting her arm laterally, alleviated somewhat by lowering her arm to rest to her side. She is prior history of injuries or surgeries to her left shoulder. She is right-hand dominant. She notes no other associated symptoms no other alleviating or aggravating factors. ROS Const Constitutional: Positive for fatigue Eyes Eyes: No change in vision ENT ENT: No abnormal hearing, ear pain, ear discharge, ear pressure or hearing loss Resp Respiratory: No cough or chest congestion Cardio Cardiology: No chest pain at rest, chest pain with exertion, shortness of breath, dyspnea on exertion, irregular heart rhythm, generalized swelling or leg pain with exertion Gastro GI: No abdominal pain Musc Musculoskeletal: Positive for joint pain; no back pain, limited range of motion, joint swelling or deformity Skin Skin: No change in hair or sores Neuro Neurology: No abnormal hearing, abnormal speech or abnormal movements Endo Endocrine: Positive for fatigue; no change in body appearance, cold intolerance or heat intolerance Aller/Imm Allergy/Immunologic: No food intolerance Júnior/Lymp Hematologic/Lymphatic: No easy bruising Exam Const General: cooperative, healthy appearing, no acute distress Nutritional Appearance: average body habitus Orientation: alert, awake, oriented x3 HENMT Head: normal to inspection Ears: hearing grossly normal bilaterally Nose: external nose normal Eyes General: appearance normal, both eyes and all related structures Neck Neck: normal visual inspection, full ROM Lymphatic: no lymphadenopathy noted Chest Chest palpation AND inspection: normal inspection of the chest Resp Effort AND Inspection: normal respiratory effort, able to speak in complete sentences, symmetric chest movement Auscultation: Bilateral: Clear to Auscultation Cardio Palpation: normal PMI Rate: regular rate Rhythm: regular rhythm Heart Sounds: S1 normal, S2 normal, no gallops, no murmurs, no rubs Pulses: radial pulses present GI Inspection: normal to inspection Palpation: soft, no hepatosplenomegaly Skin General: no rashes or lesions noted Neuro General: alert, awake, oriented x3, gait normal Cognition: normal cognition Speech: speech normal Gait: normal gait Motor: muscle tone normal throughout Sensory Exam: no sensory deficits noted Extrem General: normal to inspection, full ROM (w/ deltoid pain/ trace swelling appreciated to palpation) Psych Appearance: grossly normal Mental Status: mental status grossly normal Mood: congruent mood Affect: normal affect Speech and Movement: speech and movement normal Attitude: cooperative Thought Process: normal Thought Content: normal Judgment: judgment good Assessment AND Plan Problems 1. Left shoulder strain S46.912A Plan Return to work with 10 pound lift/push/pull restrictions in no reaching above shoulder level with left arm; no restrictions with right arm. Ibuprofen as prescribed today. Rest, ice, home range of motion exercises as instructed today. [facility] on September 01, 2017, sooner should symptoms worsen or any other concerns develop. Patient states acknowledging understanding all the above. This note was generated with [email or web address] dictation software. It may contain incorrect words, spelling, and punctuation that were not noted in checking the note before signing. Medications New: Coding Level of Care Code Off vis,new,level 4 Diagnoses Left shoulder strain S46.912A 08/25/17 0835 <Electronically signed by Rolando MAIN> Date Rolando MAIN Cosigner Signature: Date (if applicable) CC: ALLERGIES ALLERGIES DATE TYPE / CODE NAME / CODE REACTION SEVERITY SOURCE 05/08/2018 Drug No Known Unknown [facility] Allergy/[id number](S Allergies/F Community NOMED CT) [id number]( Hospital XNORM) Repository 01/04/2003 Miscellaneous OTHER [facility] Allergy/123525912([facility] NOMED CT) Repository ENCOUNTERS ENCOUNTERS ADMIT/DISCHARGE ACCOUNT ADMITTING ENCOUNTER LOCATION SOURCE NUMBER CLASS 06/17/[id number] [facility] ing:OPBI Repository 05/08/2018/05/08/20 [id number] Emergency [address] ing:ED Repository 05/08/2018/05/10/20 [id number] Ambulatory [address] Repository 04/04/2018/04/04/20 [id number] Ambulatory [address] Repository 04/04/2018/04/06/20 [id number] Ambulatory [address] Repository 03/16/2018/03/16/20 [id number] Ambulatory [address] Repository 03/02/2018/03/02/20 [id number] Emergency [address] ing:ED Repository 09/01/2017/09/01/19 [id number] Ambulatory BMSBuilding:B Nellie [address] [facility] Repository 08/25/2017/08/25/19 [id number] Ambulatory BMSBuilding:B [place] [address] [facility] Repository PAYERS PAYERS ENCOUNTER GUARANTOR PAYER SUBSCRIBER SOURCE 06/17/2018 CRYSTAL D Primary NOT GIVENUNK Clay [id number] Insurance:SELF PAY [address] Number: Effective Repository [id number]: [phone]) Date:2018-05-13 () 05/08/2018 CRYSTAL D Primary NOT GIVENUNK Clay [id number] Insurance:SELF PAY [address] Number: Effective Repository [phone]: [phone] Date:2018-05-08 () 03/02/2018 CRYSTAL D Primary CRYSTAL D Nellie [id number] [facility] Number: [id number] [id number] Repository [address]Fni: [phone]) Date:2018-03-02P O () [address]ATTN: [place] [address]VY: 03/02/2018 Secondary NOT GIVENUNK Clay Insurance:SELF PAY [facility] Number: Effective Repository Date:2018-03-02 09/01/2017 CRYSTAL Primary CRYSTAL Nellie [id number] Insurance:[facility] [address] [facility] [id number] Number: Repository [id number]: [phone] Date: -2 () [address] [address]FW: 09/01/2017 Secondary NOT GIVENUNK Nellie Insurance:SELF PAY [facility] Number: Effective Repository Date:2017-09-01 08/25/2017 CRYSTAL Primary CRYSTAL Clay [id number] Insurance:[facility] [id number] Number: Repository [id number]: [phone] () Date: [address] [address]GO: 08/25/2017 Secondary NOT GIVENUNK Clay Insurance:SELF PAY [facility] Number: Effective Repository Date:2017-08-25
== END ==
DX: Z12.31 Encounter for screening mammogram for malignant neoplasm of breast (principal)
CPT/HCPCS: 77063; 77067

== ENCOUNTER → 2018-08-11 09:34 | Outpatient (CLI) | payer OTHER, SELFPAY ==
--- NOTE | 2018-08-11 09:39 | RAD_ITS ---
STUDY: X-RAY - RIGHT FOOT CLINICAL: Female, 42 years old. Left foot pain. No history of injury. TECHNIQUE: 3 view(s) of the foot. COMPARISON: None. FINDINGS: There is a plantar calcaneal spur. Normal visualized subtalar, talonavicular, calcaneocuboid, tarsal and tarsometatarsal articulations. Normal metatarsi. There is minimal degenerative arthrosis of the metatarsophalangeal joint of the hallux . Normal tibial and fibular sesamoid bones. Normal interphalangeal joint of the great toe. Normal phalanges of the great toe. Normal second through fifth metatarsophalangeal joints. Normal interphalangeal joints and phalanges of the lesser toes. The soft tissue structures are unremarkable. RAD/Foot min 3 Views IMPRESSION: 1. Calcaneal spur. 2. Minimal degenerative arthrosis. Electronically Signed: Tio Salmon MD at 10:15 EST Tel , Service support ,
== END ==
LOC: RAD 09:37
DX: M79.671 Pain in right foot (principal)
CPT/HCPCS: 73630

== ENCOUNTER 2018-11-15 03:17 | Emergency (ER) | payer OTHER, SELFPAY ==
[2018-11-15 03:18] VITALS: BP 135/90; PULSE 67; RESP 18; TEMP 36.6; O2SAT 97; BMI 36.1
--- NOTE | 2018-11-15 03:38 | CT_ITS ---
STUDY: CT ABDOMEN AND PELVIS WITHOUT CONTRAST REASON FOR EXAM: Female, 43 years old. Right-sided flank pain RADIATION DOSAGE (If Supplied By Facility): CTDIvol = ( 20.18 ) mGy, DLP = ( 1053.96 ) mGycm TECHNIQUE: Transaxial images were obtained from the dome of the diaphragm to the symphysis pubis without oral contrast, and without intravenous contrast. Sagittal and coronal images were reconstructed. Individualized dose optimization techniques were used for this CT. COMPARISON: None. FINDINGS: The visualized lung bases are unremarkable. The visualized portions of the heart are within normal limits. Normal liver. Normal gallbladder and extrahepatic biliary system. Normal spleen. Normal pancreas. Normal bilateral adrenal glands. Normal right kidney. Normal left kidney. Bilateral Normal visualized stomach. Normal small intestine. Normal colon. The appendix is visualized and appears normal. Normal abdominal aorta. Normal inferior vena cava. Shotty ileocolic lymph nodes. Normal urinary bladder. Normal reproductive organs. Normal abdominal wall. Normal osseous structures. CT/Abdomen/Pelvis without Cont IMPRESSION: 1. No evidence of an acute intra-abdominal abnormality. 2. Shotty ileocolic lymph nodes. Continued surveillance is recommended. Electronically Signed: Cali Chino MD at 4:36 EDT Tel , Service support ,
--- NOTE | 2018-11-15 03:38 | ED.VIS.GEN ---
History of Present Illness Chief Complaint: Flank Pain Informant: Patient Narrative: She stated she had right flank pain worse over the last 2 days. She is had some mild on and off pains for the last 2 months. Is never been evaluated. No nausea vomiting or diarrhea. No abdominal pain. No fevers or chills. No movement related. Sometimes it radiates to her back. She is never had a kidney stone but thinks she may have one. It is sharp in nature. It seems to wax and wane. No previous abdominal surgeries. Past Medical History - Allergies and Home Meds Allergies/Adverse Reactions: Allergies No Known Allergies Allergy (Verified 11/15/18 03:26) Primary Care Physician: Alexa Flores [Primary Care Provider] - Prior records reviewed: Yes Past Medical History: - - Diabetes, neuropathy Surgical History: - - Viewed Smoking Status: Never smoker Alcohol: None Drugs: None Review of Systems General: Denies: Chills, Fever, Sweats Eyes: Denies: Visual changes - bilaterally, Diplopia ENT: Denies: Rhinorrhea, Sore throat Cardiovascular: Denies: Chest pain, Palpitations Respiratory: Denies: Dyspnea, Cough, Dyspnea on exertion Gastrointestinal: Denies: Abdominal pain, Nausea, Vomiting, Diarrhea, Melena, Hematochezia Genitourinary: Denies: Dysuria, Hematuria, Frequency Musculoskeletal: Reports: Back pain. Denies: Extremity Pain Skin: Denies: Rash, Wounds Neurological: Denies: Headache, Weakness, Numbness Physical Exam Vital Signs/Narrative: Vital Signs Temp Pulse Resp BP Pulse Ox 11/15/18 03:18 97.8 F 67 18 135/90 H 97 General: Well nourished, Well developed, No Acute Distress Head: Normocephalic, Atraumatic Eyes: Perrl, EOMI ENT: Moist mucous membranes, No rhinorrhea Neck: Supple, Nontender Cardiovascular: Regular rate, Regular rhythm, No murmurs Respiratory: No distress, CTA bilaterally, Chest nontender Abdomen: Soft, Nontender, Nondistended, Normal bowel sounds Back: Nontender, Normal Inspection Extremities: Nontender, No edema Skin: Normal color, No rash Neurological: Alert, Oriented x3, Cranial nerves II-XII grossly intact, Normal Strength, Normal Sensation Psychological: Normal affect, Normal Mood Diagnostic/Tx/Re-eval - Medical Decision Making Dose of Toradol given. Lab work and CAT scan of the abdomen and pelvis obtained. Lab work shows nothing remarkable except for mild blood in her urine. CT shows no kidney stone. On reevaluation she does feel better after Toradol. Perhaps she did pass a kidney stone but there is no evidence of hydro-. The radiologist noted some shotty lymph nodes that are likely nonspecific. Patient will follow-up for these and likely have a repeat CAT scan in 3 to 6 months to make sure they have not changed. I do not think it is a cause of her right flank pain. She will continue anti-inflammatories and follow-up. ED Disposition - Plan for ED Patient: Diagnosis: Flank pain Instructions: ED Flank Pain Uncertain Cause Referrals: Alexa Flores [Primary Care Provider] - Additional Instructions: Please follow-up with your doctor and have a repeat CAT scan in 3 to 6 months of your abdomen to reevaluate your abdominal lymph nodes to make sure they have not grown
[2018-11-15] MEDS: 0.9% Normal Saline 1,000 ML 250 ML IV (03:41)
[2018-11-15] MEDS: Ketorolac 30 MG/ML Syringe IV (03:43)
[2018-11-15 03:49] LABS: Bacteria 0 SEEN /hpf (None Seen); Mucous, Urine 0 SEEN /hpf (<or=2+); White Blood Cells 0 SEEN /hpf (0-5)
[2018-11-15 03:51] LABS: Color, Urine Yellow (Yellow); Glucose, Dipstick Normal (Normal); Ketone-Dipstick Negative (Negative); Leukocyte Esterase-Dipstick Negative /ul (Negative); Nitrite-Dipstick Negative (Negative); Occult Blood-Urine 250 /ul (Negative); Protein-Dipstick 15 mg/dl (Negative); Specific Gravity, Urine 1.025 (1.002-1.030); Urine Bilirubin Dipstick Negative (Negative); Urine Clarity Clear (Clear); Urine Urobilinogen Normal (Normal)
[2018-11-15 03:53] LABS: Absolute Lymphocyte Count 2.29 X10^3/ul (0.83-4.51); Basophil# 0.02 X10^3/uL; Basophil% 0.3 % (0-1); Eosinophil# 0.12 X10^3/uL; Eosinophils% 1.5 % (0-5); Hematocrit 37.1 % (37-47); Hemoglobin 12.6 g/dl (12.0-15.0); Lymphocyte # 2.29 X10^3/ul (4.0); Lymphocyte % 29.1 % (19-41); Mean Corpuscular Volume 91.2 fL (81-99); Mean Platelet Vol. 10.6 fl (6.2-12.0); Monocyte# 0.42 X10^3/uL; Monocyte% 5.3 % (0-10); Neutrophil # 4.99 X10^3/uL (2.7-7.7); Neutrophil % 63.5 % (47-70); Platelet Count 265 K/mm3 (150-450); RBC Distribution Width CV 12.6 % (11.6-14.6); RBC Distribution Width SD 41.5 fl (35.1-43.9); Red Blood Count 4.07 M/mm3 (4.2-5.4); White Blood Count 7.9 K/mm3 (4.4-11.0)
[2018-11-15 03:58] LABS: POSITIVE COUNT NO; POSITIVE DIFFERENTIAL NO; POSITIVE MORPHOLOGY NO
[2018-11-15 04:01] LABS: Hyaline Cast 0-5 SEEN /lpf (0-5); Red Blood Cells-Urine 10-25 SEEN /hpf (0-5); Squamous Epithelial Cells - UA 10-25 SEEN /hpf (5-10)
[2018-11-15 04:02] LABS: Internal QC Validated? YES +Cl - CLEAR BKGD; Pregnancy, Serum, hCG Quali. NEGATIVE Negative
[2018-11-15 04:05] LABS: Anion Gap 9 (5-15); BUN 14 mg/dL (7-18); BUN/Creat Ratio 14.2 RATIO (10-20); Calcium,Total 8.8 mg/dL (8.5-10.1); Chloride 103 mmol/L (98-107); Creatinine, Serum 0.98 mg/dL (0.55-1.02); EST Glomerular Filtration Rate 66 mL/min (>60); Est Glom Filt Rate - Afr Amer 80 mL/min (>60); Estimated Creatinine Clearance 65.24 ml/min; Glucose 103 mg/dL (74-106); Potassium 3.5 mmol/L (3.5-5.1); Sodium Level 138 mmol/L (136-145)
[2018-11-15 05:19] VITALS: BP 153/100; PULSE 61; RESP 18; O2SAT 98
== END 2018-11-15 05:20 | disposition home or self-care (01) ==
PROVIDERS: Emergency Provider Emergency Medicine
DX: R10.9 Unspecified abdominal pain (principal)
CPT/HCPCS: 74176; 80048; 81001; 84703; 85025; 96361; 96374; 99283; J7030; A4216

== ENCOUNTER 2018-12-02 02:37 | Emergency (ER) | payer OTHER, SELFPAY ==
[2018-12-02 02:37] VITALS: BP 142/115; PULSE 96; RESP 20; TEMP 37.1; O2SAT 94; BMI 37.1
[2018-12-02] MEDS: Diphth,Pertuss(Acell),Tet Vac 0.5 ML Vial IM (02:57)
--- NOTE | 2018-12-02 03:00 | RAD_ITS ---
STUDY: X-RAY - RIGHT HAND REASON FOR EXAM: Female, 43 years old. Second digit smashed between a roller and a skid TECHNIQUE: 3 view(s) of the hand. COMPARISON: None. FINDINGS: Normal radiocarpal articulation. Normal distal radioulnar joint. Normal visualized carpal bones. Normal carpal articulations Normal carpometacarpal articulation of the thumb. Normal second through fifth carpometacarpal joints. Normal metacarpi. Normal metacarpophalangeal joint of the thumb. Normal interphalangeal joint of the thumb. Normal proximal and distal phalanges of the thumb. Normal metacarpophalangeal joints of the second through fifth fingers. Normal proximal and distal interphalangeal joints of the second through fifth fingers. Normal phalanges of the second through fifth fingers. The soft tissue structures are unremarkable. RAD/Hand Min 3 Views IMPRESSION: There is no acute displaced fracture or dislocation. Electronically Signed: Carolynn Thompson MD at 3:34 EDT , Service support ,
--- NOTE | 2018-12-02 03:52 | ED.DEP ---
ED Disposition - Plan for ED Patient: Instructions: ED Laceration Hand Referrals: Earlene Ackerman,Alexa Anderson [Primary Care Provider] - [facility] [GROUP OF PHYSICIANS] -
--- NOTE | 2018-12-02 03:53 | DCINST.ED_ITS ---
ED Disposition - Plan for ED Patient: Instructions: ED Laceration Hand Referrals: Earlene Ackerman,Alexa Anderson [Primary Care Provider] - [facility],[place] [facility] [GROUP OF PHYSICIANS] -
--- NOTE | 2018-12-02 04:03 | ED.DCSUM_ITS ---
- ER Visit Summary Date of Service: 12/02/18 Chief Complaint: Right hand injury History of Present Illness: The patient is a 43 F presenting with right hand injury. Patient was at work when this occurred. She got her first and second finger caught between a skid and a roller. She was able to pull it out. She is left-handed. Last tetanus is unknown. No other injuries. Physical Examination: Vitals are stable. Patient is afebrile. Alert no acute distress. HEENT exam is unremarkable. Neck is supple. Lungs are clear and equal bilaterally. Heart is regular rate and rhythm. Extremities right first and second finger contusion. Right first digit partial subungual hematoma, less than 25%. Right first fingerpad 0.5 cm laceration and 1 cm flap laceration. Active full range of motion. Normal cap refill. Skin is warm and dry. No focal neurologic deficit. Remainder of exam is unremarkable. Emergency Department Course and Treatment: X-ray right hand shows no acute process. Patient was given tetanus IM. Wound was irrigated. Anesthetized with lidocaine. 1, 5-0 simple suture was placed in the 0.5 cm laceration. 1, 5-0 simple sutures placed in the 1 cm flap laceration. Patient tolerated this well. Aluminum foam splint was applied. Advised wound care instructions. Advised to follow up with corporate care. Advised return to ED if worsening complaints. Disposition: Discharge home Impression: Right first and second finger contusion, right first finger laceration, laceration repair This note was generated with [employer] dictation software. It may contain incorrect words, spelling, and punctuation that were not noted in review of the chart prior to signing ED Disposition - Plan for ED Patient: Instructions: ED Laceration Hand Referrals: ,Care [GROUP OF PHYSICIANS] - Alexa Flores [Primary Care Provider] -
[2018-12-02 04:15] VITALS: BP 136/87; PULSE 85; RESP 18; O2SAT 96
== END 2018-12-02 04:15 | disposition home or self-care (01) ==
PROVIDERS: Emergency Provider Emergency Medicine; Referring Provider Nurse Practitioner Family
DX: S61.210A Laceration without foreign body of right index finger without damage to nail, initial encounter (principal); S60.031A Contusion of right middle finger without damage to nail, initial encounter; Z23 Encounter for immunization; E11.9 Type 2 diabetes mellitus without complications; Z79.84 Long term (current) use of oral hypoglycemic drugs; W23.0XXA Caught, crushed, jammed, or pinched between moving objects, initial encounter; Y93.89 Activity, other specified; Y92.89 Other specified places as the place of occurrence of the external cause; Y99.0 Civilian activity done for income or pay
CPT/HCPCS: 12001; 73130; 90471; 90715; 99284

== ENCOUNTER 2019-04-25 22:41 | Emergency (ER) | payer OTHER, SELFPAY ==
[2018-12-09 07:36] VITALS: BMI 37.0
[2019-04-25 22:42] VITALS: BP 163/100; PULSE 99; RESP 16; TEMP 36.6; O2SAT 99; BMI 35.9
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
--- NOTE | 2019-04-25 23:05 | RAD_ITS ---
STUDY: X-RAY - RIGHT ANKLE REASON FOR EXAM: Female, 43 years old. Pain bruising TECHNIQUE: 3 view(s) of the ankle. COMPARISON: Right foot August 11, 2018 FINDINGS: Normal visualized distal tibia and fibula. Normal medial and lateral malleoli. Normal tibiotalar articulation and ankle mortise. There is mild degenerative change of the tibial talar joint space. There is a plantar spur. The visualized subtalar, talonavicular, calcaneocuboid and tarsal articulations are normal. The soft tissue structures are unremarkable. RAD/Ankle min 3 Views IMPRESSION: No visualized acute fracture. Degenerative change. Electronically Signed: Nayely Lira MD at 23:17 EDT Tel , Service support ,
--- NOTE | 2019-04-25 23:23 | ED.DEP ---
ED Disposition - Plan for ED Patient: Instructions: CONTUSION, Lower Extremity Prescriptions: Naproxen [Naprosyn] 500 mg PO BID PRN #20 tablet Referrals: Earlene Ackerman,Alexa Anderson [Primary Care Provider] -
[2019-04-25] MEDS: Naproxen 500 MG Tablet PO (23:38)
[2019-04-25 23:42] VITALS: BP 148/94; PULSE 80; RESP 18; O2SAT 98
== END 2019-04-25 23:43 | disposition home or self-care (01) ==
PROVIDERS: Emergency Provider Emergency Medicine
DX: S90.01XA Contusion of right ankle, initial encounter (principal); E11.9 Type 2 diabetes mellitus without complications; Z79.84 Long term (current) use of oral hypoglycemic drugs; Y08.89XA Assault by other specified means, initial encounter; Y93.89 Activity, other specified; Y92.009 Unspecified place in unspecified non-institutional (private) residence as the place of occurrence of the external cause; Y99.8 Other external cause status
CPT/HCPCS: 73610; 99283

== ENCOUNTER 2020-03-21 16:51 | Emergency (ER) | payer MEDICAID, SELFPAY ==
[2020-03-21 16:52] VITALS: BP 155/104; PULSE 97; RESP 18; TEMP 36.8; O2SAT 97; BMI 37.2
--- NOTE | 2020-03-21 17:14 | ED.DCSUM_ITS ---
History of Present Illness Chief Complaint: Sore Throat Informant: Patient Onset: Days - 2 Narrative: 2-day history sore throat worse with swallowing. No fevers. No sick contacts. No cough. No vomiting or diarrhea. History of diabetes, on metformin, does not check her sugars. Patient on DOROTHY inhibitor for renal protection. Denies any allergies. Prior similar symptoms: No Past Medical History - Allergies and Home Meds Allergies/Adverse Reactions: Allergies No Known Allergies Allergy (Verified 03/21/20 16:52) Primary Care Physician: [facility],Alexa Anderson [Primary Care Provider] - Past Medical History: - - Diabetes, urinary incontinence Surgical History: - - Viewed Smoking Status: Never smoker Review of Systems General: Denies: Chills, Fever, Sweats Eyes: Denies: Visual changes - bilaterally, Diplopia ENT: Reports: Sore throat. Denies: Rhinorrhea Cardiovascular: Denies: Chest pain, Palpitations Respiratory: Denies: Dyspnea, Cough, Dyspnea on exertion Gastrointestinal: Denies: Abdominal pain, Nausea, Vomiting, Diarrhea, Melena, Hematochezia Genitourinary: Denies: Dysuria, Hematuria, Frequency Musculoskeletal: Denies: Back pain, Extremity Pain Skin: Denies: Rash, Wounds Neurological: Denies: Headache, Weakness, Numbness Physical Exam Vital Signs/Narrative: Vital Signs Temp Pulse Resp BP Pulse Ox 03/21/20 16:52 98.3 F 97 18 155/104 H 97 Inital Vital Signs reviewed: Yes General: Well nourished, Well developed, No Acute Distress Head: Normocephalic, Atraumatic Eyes: Perrl, EOMI ENT: Moist mucous membranes, No rhinorrhea, - - Very minimal erythema posterior pharynx, 2-3+ normal symmetric tonsils with no erythema or exudates. No trismus. Uvula midline. No stridor. Neck: Supple, Nontender, No lymphadenopathy Cardiovascular: Regular rate, Regular rhythm, No murmurs Respiratory: No distress, CTA bilaterally, Chest nontender Abdomen: Soft, Nontender, Nondistended, Normal bowel sounds Back: Nontender, Normal Inspection Extremities: Nontender, No edema Skin: Normal color, No rash Neurological: Alert, Oriented x3, Cranial nerves II-XII grossly intact, Normal Strength, Normal Sensation Psychological: Normal affect, Normal Mood Diagnostic/Tx/Re-eval - Medical Decision Making Patient nontoxic vital signs stable. Rapid strep negative. Fingerstick glucose was 211. Discussed with patient options she would like the steroid dose to help with symptoms. She will monitor her glucose. She will follow-up with her PCP. All questions were answered. ED Disposition - Plan for ED Patient: Disposition: Home or Assisted Living Diagnosis: Acute pharyngitis Instructions: ED Pharyngitis Viral Referrals: [facility],Alexa Anderson [Primary Care Provider] - 3-5 Days if not improving
[2020-03-21 17:31] LABS: Bedside Glucose 211 mg/dL (70-110)
[2020-03-21 18:50] VITALS: RESP 18
[2020-03-21] MEDS: dexAMETHasone 4 MG Tablet 8 MG PO (18:50)
== END 2020-03-21 18:51 | disposition home or self-care (01) ==
PROVIDERS: Emergency Provider Emergency Medicine
DX: J02.9 Acute pharyngitis, unspecified (principal); E11.9 Type 2 diabetes mellitus without complications; Z79.84 Long term (current) use of oral hypoglycemic drugs
CPT/HCPCS: 82962; 87880; 99283

== ENCOUNTER → 2020-03-22 08:53 | Outpatient (CLI) | payer MEDICAID, SELFPAY ==
[2020-03-21 16:52] VITALS: BMI 37.2
[2020-03-22 09:45] LABS: Absolute Lymphocyte Count 1.16 X10^3/uL (0.83-4.51); Absolute Neutrophil Count 14.5 X10^3/uL (2.0-7.7); Basophil# 0.01 X10^3/uL; Basophil% 0.1 % (0-1); Hematocrit 42.1 % (37-47); Hemoglobin 13.8 g/dL (12.0-15.0); Lymphocyte # 1.16 X10^3/ul (4.0); Lymphocyte % 7.2 % (19-41); Mean Corp Hgb Conc 32.8 g/dL (32-36); Mean Corpuscular Volume 94.6 fL (81-99); Mean Platelet Vol. 10.7 fl (6.2-12.0); Monocyte# 0.31 X10^3/uL; Monocyte% 1.9 % (0-10); NRBC Flagged by Analyzer 0 % (0-5); Neutrophil # 14.52 X10^3/uL (2.7-7.7); Neutrophil % 90.4 % (47-70); Platelet Count 363 K/mm3 (150-450); RBC Distribution Width CV 12.2 % (11.6-14.6); RBC Distribution Width SD 42.3 fl (35.1-43.9); Red Blood Count 4.45 M/mm3 (4.2-5.4); White Blood Count 16.1 K/mm3 (4.4-11.0)
[2020-03-22 10:32] LABS: ALB/GLOB Ratio 0.7 RATIO (0.9-2.4); AST(SGOT) 11 U/L (15-37); Alanine Aminotransfer ALT/SGPT 26 U/L (13-56); Albumin, Serum 3.6 g/dL (3.2-5.0); Alkaline Phosphatase 112 U/L (45-117); Anion Gap 12 (5-15); BUN 18 mg/dL (7-18); Calcium,Total 9.4 mg/dL (8.5-10.1); Chloride 97 mmol/L (98-107); Cholesterol 253 mg/dL (200); Creatinine, Serum 1.29 mg/dL (0.55-1.02); EST Glomerular Filtration Rate 48 mL/min (>60); Est Glom Filt Rate - Afr Amer 58 mL/min (>60); Globulin 5.2 g/dL (2.2-4.2); Glucose 232 mg/dL (74-106); High Density Lipoprotein 60 mg/dL; Protein, Total 8.8 g/dL (6.4-8.2); Sodium Level 133 mmol/L (136-145); Triglycerides 132 mg/dL; Very Low Density Lipoprotein 26 mg/dL (5-40)
[2020-03-22 10:36] LABS: Hemoglobin A1c 7.8 % (3.8-5.6); Vitamin D,25 Hydroxy 46.5 ng/mL
== END ==
DX: E11.42 Type 2 diabetes mellitus with diabetic polyneuropathy (principal); I10 Essential (primary) hypertension; E78.2 Mixed hyperlipidemia; E55.9 Vitamin D deficiency, unspecified
CPT/HCPCS: 36415; 80053; 80061; 82306; 83036; 85025

== ENCOUNTER → 2020-08-05 15:14 | Outpatient (CLI) | payer MEDICAID, SELFPAY ==
[2020-08-05 16:15] LABS: Microalbumin,Random Urine 83.1 mg/L (NO RANGE EST.); Microalbumin:Creatinine Ratio 36.1 mg/g CRE (<30 mg/g CRE)
[2020-08-05 16:35] LABS: ALB/GLOB Ratio 0.7 RATIO (0.9-2.4); AST(SGOT) 32 U/L (15-37); Alanine Aminotransfer ALT/SGPT 40 U/L (13-56); Albumin, Serum 3.3 g/dL (3.2-5.0); Alkaline Phosphatase 103 U/L (45-117); Anion Gap 10 (5-15); BUN 12 mg/dL (7-18); BUN/Creat Ratio 12.8 RATIO (10-20); Calcium,Total 8.6 mg/dL (8.5-10.1); Chloride 102 mmol/L (98-107); Cholesterol 244 mg/dL (200); Creatinine, Serum 0.94 mg/dL (0.55-1.02); EST Glomerular Filtration Rate 69 mL/min (>60); Est Glom Filt Rate - Afr Amer 84 mL/min (>60); Globulin 4.5 g/dL (2.2-4.2); Glucose 246 mg/dL (74-106); High Density Lipoprotein 38 mg/dL; Potassium 3.8 mmol/L (3.5-5.1); Protein, Total 7.8 g/dL (6.4-8.2); Sodium Level 136 mmol/L (136-145); Triglycerides 231 mg/dL; Very Low Density Lipoprotein 46 mg/dL (5-40)
[2020-08-05 16:41] LABS: Hemoglobin A1c 11.6 % (3.8-5.6)
== END ==
PROVIDERS: Referring Provider Family Medicine; Visit Provider Family Medicine
DX: E11.42 Type 2 diabetes mellitus with diabetic polyneuropathy (principal); E55.9 Vitamin D deficiency, unspecified
CPT/HCPCS: 36415; 80053; 80061; 82043; 82306; 82570; 83036

== ENCOUNTER → 2020-12-18 09:57 | Outpatient (CLI) | payer MEDICAID, SELFPAY ==
[2020-12-18 10:38] LABS: Anion Gap 5 (5-15); BUN 13 mg/dL (7-18); BUN/Creat Ratio 12.4 RATIO (10-20); Calcium,Total 8.5 mg/dL (8.5-10.1); Chloride 103 mmol/L (98-107); Cholesterol 129 mg/dL (200); Creatinine, Serum 1.05 mg/dL (0.55-1.02); EST Glomerular Filtration Rate 61 mL/min (>60); Est Glom Filt Rate - Afr Amer 74 mL/min (>60); Glucose 123 mg/dL (74-106); High Density Lipoprotein 39 mg/dL; Potassium 3.9 mmol/L (3.5-5.1); Sodium Level 136 mmol/L (136-145); Triglycerides 124 mg/dL; Very Low Density Lipoprotein 25 mg/dL (5-40)
[2020-12-18 10:43] LABS: Vitamin D,25 Hydroxy 71.6 ng/mL
[2020-12-18 10:52] LABS: Hemoglobin A1c 6.6 % (3.8-5.6)
== END ==
DX: E11.42 Type 2 diabetes mellitus with diabetic polyneuropathy (principal); E78.2 Mixed hyperlipidemia; E55.9 Vitamin D deficiency, unspecified
CPT/HCPCS: 36415; 80048; 80061; 82306; 83036

== ENCOUNTER → 2021-01-08 08:12 | Outpatient (CLI) | payer MEDICAID, SELFPAY ==
--- NOTE | 2021-01-08 08:14 | BI_ITS ---
MAMMOGRAPHY - BILATERAL SCREENING REASON FOR EXAM: Female, 45 years old. Routine annual screening examination. PERTINENT HISTORY: Grandmother with breast cancer. TECHNIQUE: Digital bilateral breast vladimir (3D mammographic acquisition) in the CC and MLO projections. 2-D mediolateral oblique (MLO) and craniocaudad (CC) views of both breasts were obtained. CAD: Full Field Digital Mammography with Computer Added Detection was performed. COMPARISON: Comparison is made with prior study dated 06/17/2018. FINDINGS: Breast Composition: There are scattered areas of fibroglandular density. There are no dominant masses or suspicious calcifications. Stable benign-appearing bilateral axillary No other significant abnormalities are identified. There has been no significant change since the prior study. BI/SCRN MAMM (CAD)W/VLADIMIR BILAT IMPRESSION: Stable bilateral screening mammogram. Yearly follow-up mammogram recommended. (A) ASSESSMENT CATEGORY: BIRADS Category 2: Benign. A letter regarding these results will be sent to the patient by the facility within 30 days. Approximately 10% of breast cancers are not detected by mammography. A normal mammogram should not delay biopsy of a clinically suspicious abnormality. [id number] Electronically Signed: Quirino Khan MD at 9:09 EDT , Service support ,
== END ==
PROVIDERS: Referring Provider Nurse Practitioner Adult Health; Visit Provider Nurse Practitioner Adult Health
DX: Z12.31 Encounter for screening mammogram for malignant neoplasm of breast (principal)
CPT/HCPCS: 77063; 77067

== ENCOUNTER 2021-04-14 10:36 | Emergency (ER) | payer MEDICAID, SELFPAY ==
[2021-04-14 10:36] VITALS: BP 148/102; PULSE 99; RESP 16; TEMP 36.3; O2SAT 93; BMI 37.8
--- NOTE | 2021-04-14 10:55 | CT_ITS ---
STUDY: CT ABDOMEN AND PELVIS WITHOUT CONTRAST REASON FOR EXAM: Female, 45 years old. Right-sided abdominal pain. RADIATION DOSAGE (If Supplied By Facility): CTDIvol = ( 22.03 ) mGy, DLP = ( 1106.06 ) mGycm TECHNIQUE: Transaxial images were obtained from the dome of the diaphragm to the symphysis pubis without oral contrast, and without intravenous contrast. Sagittal and coronal images were reconstructed. Individualized dose optimization techniques were used for this CT. COMPARISON: Comparison is made with prior study dated 11/15/2018. FINDINGS: The visualized lung bases are unremarkable. The visualized portions of the heart are within normal limits. Normal liver. Normal gallbladder and extrahepatic biliary system. Normal spleen. Normal pancreas. Normal bilateral adrenal glands. Normal right kidney. Normal left kidney. Normal visualized stomach. Normal small intestine. There are scattered colonic diverticula consistent with diverticulosis. The appendix is visualized and appears normal. Normal abdominal aorta. Normal inferior vena cava. There is borderline retroperitoneal lymphadenopathy with enlarged nodes no greater than 10mm in the short axis diameter. Normal urinary bladder. There is a 3.9 cm x 3.8 cm left ovarian cyst. There is a 2.5 cm x 1.6 cm right ovarian cyst. Normal abdominal wall. Loss of the normal lumbar lordosis. CT/Abdomen/Pelvis without Cont IMPRESSION: 3.9 cm x 3.8 some left ovarian cyst. 2.5 cm x 1.6 cm right ovarian cyst. Electronically Signed: Quirino Khan MD at 11:47 EDT , Service support ,
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
[2021-04-14 12:26] VITALS: BP 121/74; PULSE 62; RESP 15; O2SAT 98
== END 2021-04-14 12:26 | disposition home or self-care (01) ==
PROVIDERS: Emergency Provider Emergency Medicine
DX: S30.1XXA Contusion of abdominal wall, initial encounter (principal); R05.9 Cough, unspecified; E11.9 Type 2 diabetes mellitus without complications; S20.211A Contusion of right front wall of thorax, initial encounter; I83.022 Varicose veins of left lower extremity with ulcer of calf; L97.222 Non-pressure chronic ulcer of left calf with fat layer exposed; I89.0 Lymphedema, not elsewhere classified; E66.01 Morbid (severe) obesity due to excess calories; Z86.711 Personal history of pulmonary embolism; Z68.43 Body mass index [BMI] 50.0-59.9, adult; W22.09XA Striking against other stationary object, initial encounter; Z79.84 Long term (current) use of oral hypoglycemic drugs; Z79.899 Other long term (current) drug therapy
CPT/HCPCS: 71101; 74176; 96372; 99282; 99284

== ENCOUNTER 2021-04-14 19:12 | Emergency (ER) | payer MEDICAID, SELFPAY ==
[2021-04-14 19:12] VITALS: BP 149/100; PULSE 109; RESP 18; TEMP 37.1; O2SAT 92; BMI 83.2
[2021-04-14 19:16] VITALS: BP 149/100; PULSE 109; RESP 18; O2SAT 92
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
[2021-04-14] MEDS: Lidocaine 5% Patch 1 PATCH TOPICAL (20:25)
[2021-04-14] MEDS: Ketorolac 15 MG/ML Vial IM (21:10)
[2021-04-14 21:19] VITALS: RESP 16
[2021-04-14 21:48] VITALS: BP 136/70; PULSE 100; RESP 15; O2SAT 98
== END 2021-04-14 21:48 | disposition home or self-care (01) ==
PROVIDERS: Emergency Provider Student in an Organized Health Care Education/Training Program
DX: S20.211A Contusion of right front wall of thorax, initial encounter (principal); E11.9 Type 2 diabetes mellitus without complications; X58.XXXA Exposure to other specified factors, initial encounter; Z79.899 Other long term (current) drug therapy; Z79.84 Long term (current) use of oral hypoglycemic drugs
CPT/HCPCS: 71101; 96372

== ENCOUNTER 2021-06-05 09:10 | Inpatient (IN) | payer MEDICAID, SELFPAY ==
[2021-06-05] VITALS (31 sets, daily range): BP systolic 81–168; BP diastolic 66–101; PULSE 67–136; RESP 12–30; TEMP 36.1–39.6; O2SAT 82–100; BMI 35.2; BMI 35.3
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
--- NOTE | 2021-06-05 09:34 | NURSING ---
NO OLD EKGS
--- NOTE | 2021-06-05 09:45 | RAD_ITS ---
STUDY: X-RAY CHEST REASON FOR EXAM: Female, 45 years old. Intubation TECHNIQUE: Single AP portable view of the chest. COMPARISON: Comparison is made with prior study done earlier today. FINDINGS: And endotracheal tube is in situ. The tip is at 1.9 cm proximal to the khoi. An orogastric tube is seen with the tip in the body of the stomach. Persistent bilateral pulmonary infiltration. There has been improvement as compared to prior study. There is no demonstrated pleural abnormality. Normal size heart. Normal mediastinum and brooke. Normal visualized pulmonary arteries. Normal visualized aortic arch and descending thoracic aorta. There are diffuse degenerative changes of the visualized thoracic spine. Normal visualized ribs, clavicles, and shoulders. There is no demonstrated abnormality of the visualized soft tissue structures of the upper abdomen. RAD/Chest 1 View (Portable) IMPRESSION: The tip of endotracheal tube is at 1.9 cm proximal to the khoi. Orogastric tube is seen within the stomach. Persistent bilateral pulmonary infiltrates although they have improved as compared to prior study. Electronically Signed: Quirino Khan MD at 10:05 EST , Service support ,
[2021-06-05] MEDS: 0.9% Normal Saline 1,000 ML 150 ML IV ×3 (09:46→20:35)
[2021-06-05] MEDS: 0.9% Normal Saline 1,000 ML 1000 ML IV (09:46)
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
[2021-06-05 10:12] LABS: Hematocrit 45.8 % (37-47); Hemoglobin 14.8 g/dL (12.0-15.0); Mean Corp Hgb Conc 32.3 g/dL (32-36); Mean Corpuscular Hgb 30.8 pg (27.0-32.0); Mean Corpuscular Volume 95.2 fL (81-99); Mean Platelet Vol. 10.5 fl (6.2-12.0); Platelet Count 274 K/mm3 (150-450); RBC Distribution Width CV 12.7 % (11.6-14.6); RBC Distribution Width SD 44.8 fl (35.1-43.9); Red Blood Count 4.81 M/mm3 (4.2-5.4); White Blood Count 7.8 K/mm3 (4.4-11.0)
[2021-06-05 10:15] LABS: International Normalized Ratio 1.1; Prothrombin Time (Protime)PT. 13.2 SECONDS (11.7-14.9)
[2021-06-05 10:16] LABS: Allen Test Positive; Base Excess -5 mmol/L (-2 to +2); Bicarbonate 23.5 mmol/L (22-26); Blood Gas Specimen Type ART; FI02 100; Mode AC; O2 Delivery Device Adult Vent; PEEP 15; PO2 81 mmHG (75-100); RR 12; SITE R Brach; SO2 92 % (95-99); Total Carbon Dioxide 25 mmol/L; Vt 400; pCO2 60.7 mmHg (35-45)
[2021-06-05 10:16] LABS: Partial Thromboplast Time 27.3 Seconds (24.1-36.2)
[2021-06-05] MEDS: Rocuronium Bromide 50 MG/5 ML Vial 100 MG IV (10:16)
[2021-06-05] MEDS: Propofol 10MG/Ml 1,000 MG/100 ML Bottle 5.8 MG CONT INF (10:16)
[2021-06-05] MEDS: Etomidate 20 MG/10 ML Vial IV (10:16)
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
[2021-06-05 10:21] LABS: Color, Urine Yellow (Yellow); Glucose, Dipstick 1000 mg/dl (Normal); Ketone-Dipstick 50 mg/dl (Negative); Leukocyte Esterase-Dipstick Negative /ul (Negative); Nitrite-Dipstick Positive (Negative); Occult Blood-Urine 150 /ul (Negative); Protein-Dipstick 100 mg/dl (Negative); Specific Gravity, Urine 1.015 (1.002-1.030); Urine Bilirubin Dipstick Negative (Negative); Urine Clarity Sl. Cloudy (Clear); Urine Urobilinogen Normal (Normal)
[2021-06-05 10:27] LABS: Red Blood Cells-Urine 0-5 SEEN /hpf (0-5); White Blood Cells 5-10 SEEN /hpf (0-5)
[2021-06-05 10:28] LABS: Amorphous Sediment 1+; Bacteria 3+ /hpf (None Seen); Mucous, Urine 1+ /hpf (<or=2+); Squamous Epithelial Cells - UA 5-10 SEEN /hpf (5-10); Yeast-Urine 2+ /hpf (None Seen)
[2021-06-05 10:30] LABS: ALB/GLOB Ratio 0.4 RATIO (0.9-2.4); AST(SGOT) 52 U/L (15-37); Alanine Aminotransfer ALT/SGPT 29 U/L (13-56); Albumin, Serum 2.7 g/dL (3.2-5.0); Alkaline Phosphatase 78 U/L (45-117); Anion Gap 19 (5-15); BUN 34 mg/dL (7-18); BUN/Creat Ratio 13.7 RATIO (10-20); CPK Total, Creatine Kinase 352 U/L (26-192); Calcium,Total 8.8 mg/dL (8.5-10.1); Chloride 96 mmol/L (98-107); Creatinine, Serum 2.48 mg/dL (0.55-1.02); EST Glomerular Filtration Rate 23 mL/min (>60); Est Glom Filt Rate - Afr Amer 27 mL/min (>60); Estimated Creatinine Clearance 26.32 ml/min; Globulin 6.2 g/dL (2.2-4.2); Glucose 668 mg/dL (74-106); Lipase 353 U/L (73-393); Potassium 4.7 mmol/L (3.5-5.1); Protein, Total 8.9 g/dL (6.4-8.2); Sodium Level 134 mmol/L (136-145); Troponin-I HS 20 pg/mL (3.0-54.0)
[2021-06-05 10:35] LABS: BNP,B-Type NATRIURETIC PEPTIDE 24.1 pg/mL (0-100)
[2021-06-05 10:43] LABS: Lactic Acid 4.7 mmol/L (0.4-1.9)
[2021-06-05 10:47] LABS: Amphetamine Urine VISTA NEGATIVE (<1000 ng/mL); Barbiturate Urine VISTA NEGATIVE (< 200 ng/mL); Benzodiazepine Urine VISTA NEGATIVE (< 200 ng/mL); Cocaine Urine VISTA NEGATIVE (< 300 ng/mL); Ecstacy Urine VISTA NEGATIVE (< 500 ng/mL); Methadone Urine VISTA NEGATIVE (< 300 ng/mL); PCP Urine VISTA NEGATIVE (< 25 ng/mL); THC Urine VISTA NEGATIVE (< 50 ng/mL); Vista UDS pH Range 6
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
[2021-06-05] MEDS: dexAMETHasone 10 MG/ML Vial 6 MG IV (12:22)
[2021-06-05] MEDS: Acetaminophen 650 MG Suppository RC (12:24)
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
--- NOTE | 2021-06-05 13:29 | NURSING ---
ICU TERELETSKY COVID 19
--- NOTE | 2021-06-05 13:29 | NURSING ---
ICU 1
[2021-06-05 13:56] LABS: Reflex Lactate? Y
[2021-06-05 14:15] LABS: Bedside Glucose > 500 mg/dL (70-110)
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
[2021-06-05] MEDS: 0.9% Saline Lock 10 ML Syringe IV (14:49)
[2021-06-05] MEDS: Propofol 10MG/Ml 1,000 MG/100 ML Bottle 8.6 MG CONT INF (15:00)
[2021-06-05 15:06] LABS: Allen Test Positive; Base Excess -3 mmol/L (-2 to +2); Bicarbonate 23.2 mmol/L (22-26); Blood Gas Specimen Type ART; FI02 50; Mode AC; O2 Delivery Device Adult Vent; PEEP 18; PO2 62 mmHG (75-100); RR 12; SITE L Radial; SO2 90 % (95-99); Total Carbon Dioxide 25 mmol/L; Vt 400; pCO2 43.8 mmHg (35-45); pH 7.33 (7.35-7.45)
[2021-06-05 15:29] LABS: Lactic Acid 2.3 mmol/L (0.4-1.9)
--- NOTE | 2021-06-05 15:49 | CM.ED ---
SPENCER Note SPENCER left message for Carly at [facility] [phone] ext [phone] and advised that staff is concerned regarding patient and the covid infection as it is very serious. SPENCER provided handoff to [facility] social sciences department chair. SW remains available if needs arise. Jennifer RAM
[2021-06-05] MEDS: Ceftriaxone 1 GM/50 ML BAG IV (16:09)
--- NOTE | 2021-06-05 16:37 | PCS.PANDOC ---
PANDEMIC DOCUMENTATION INITIATED: Date: 06/05/2021 Time: 1400
[2021-06-05] MEDS: Enoxaparin 30 MG/0.3 ML Syringe SC (17:05)
[2021-06-05] MEDS: Insulin Lispro 100 UNIT/ML INSULN.PEN SC ×2 (17:10→20:58)
[2021-06-05 17:20] LABS: Bedside Glucose > 500 mg/dL (70-110)
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
[2021-06-05 20:06] LABS: Bedside Glucose > 500 mg/dL (70-110)
[2021-06-05] MEDS: Nystatin Powder 15gm Bottle 1 APPLIC TOPICAL (20:32)
[2021-06-05] MEDS: Dexmedetomidine 1,000 mcg in 0.9% NS 240 mL 24 MCG CONT INF (20:35)
[2021-06-06] VITALS (32 sets, daily range): BP systolic 99–142; BP diastolic 73–97; PULSE 64–98; RESP 16–32; TEMP 39.2–40.1; O2SAT 90–99
[2021-06-06 00:11] LABS: Bedside Glucose > 500 mg/dL (70-110)
[2021-06-06] MEDS: Propofol 10MG/Ml 1,000 MG/100 ML Bottle 5.8 MG CONT INF (01:19)
[2021-06-06] MEDS: 0.9% Normal Saline 1,000 ML 150 ML IV (02:18)
[2021-06-06 02:26] LABS: Bedside Glucose > 500 mg/dL (70-110)
[2021-06-06 03:41] LABS: Absolute Neutrophil Count 7.2 X10^3/uL (2.0-7.7); Hematocrit 38.6 % (37-47); Hemoglobin 12.3 g/dL (12.0-15.0); Lymphocyte % 6.3 % (19-41); Mean Corp Hgb Conc 31.9 g/dL (32-36); Mean Corpuscular Hgb 31.8 pg (27.0-32.0); Mean Corpuscular Volume 99.7 fL (81-99); Mean Platelet Vol. 10.7 fl (6.2-12.0); Monocyte# 0.19 X10^3/uL; Monocyte% 2.4 % (0-10); NRBC Flagged by Analyzer 0 % (0-5); Neutrophil # 7.18 X10^3/uL (2.7-7.7); Neutrophil % 90.5 % (47-70); POSITIVE DIFFERENTIAL YES; POSITIVE MORPHOLOGY YES; Platelet Count 157 K/mm3 (150-450); RBC Distribution Width CV 13.1 % (11.6-14.6); RBC Distribution Width SD 48.2 fl (35.1-43.9); Red Blood Count 3.87 M/mm3 (4.2-5.4); White Blood Count 7.9 K/mm3 (4.4-11.0)
[2021-06-06 03:46] LABS: Differential Indicated SCAN CRITERIA MET
[2021-06-06 03:56] LABS: Magnesium 2.6 mg/dL (1.6-2.6); Phosphorus 1.3 mg/dL (2.5-4.9)
[2021-06-06 04:05] LABS: Atypical Lymphocyte 1+ %
[2021-06-06 04:16] LABS: Bedside Glucose 410 mg/dL (70-110)
[2021-06-06 04:24] LABS: ALB/GLOB Ratio 0.4 RATIO (0.9-2.4); AST(SGOT) 57 U/L (15-37); Alanine Aminotransfer ALT/SGPT 20 U/L (13-56); Albumin, Serum 1.9 g/dL (3.2-5.0); Alkaline Phosphatase 61 U/L (45-117); Anion Gap 9 (5-15); BUN 35 mg/dL (7-18); BUN/Creat Ratio 18.2 RATIO (10-20); Calcium,Total 7.2 mg/dL (8.5-10.1); Chloride 112 mmol/L (98-107); Creatinine, Serum 1.92 mg/dL (0.55-1.02); EST Glomerular Filtration Rate 30 mL/min (>60); Est Glom Filt Rate - Afr Amer 37 mL/min (>60); Estimated Creatinine Clearance 32.62 ml/min; Glucose 485 mg/dL (74-106); Protein, Total 6.9 g/dL (6.4-8.2); Sodium Level 144 mmol/L (136-145)
[2021-06-06] MEDS: Dexmedetomidine 1,000 mcg in 0.9% NS 240 mL 36 MCG CONT INF ×3 (04:36→17:00)
[2021-06-06 05:06] LABS: Bedside Glucose 385 mg/dL (70-110)
[2021-06-06 06:15] LABS: Bedside Glucose 374 mg/dL (70-110)
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
[2021-06-06 07:51] LABS: Bedside Glucose 447 mg/dL (70-110)
[2021-06-06] MEDS: Enoxaparin 30 MG/0.3 ML Syringe SC ×2 (08:05→19:52)
[2021-06-06] MEDS: dexAMETHasone 4 MG/ML Vial 6 MG IV (08:05)
[2021-06-06] MEDS: 0.9% Saline Lock 10 ML Syringe IV ×3 (08:05→17:16)
[2021-06-06] MEDS: Nystatin Powder 15gm Bottle 1 APPLIC TOPICAL ×2 (08:06→19:51)
--- NOTE | 2021-06-06 08:45 | RAD_ITS ---
STUDY: X-RAY CHEST REASON FOR EXAM: Female, 45 years old. Line placement TECHNIQUE: Single AP portable view of the chest. COMPARISON: Yesterday FINDINGS: Stable appearance of the EKG leads, ET tube, and NG tube. Since previous study, a right IJ central venous catheter has been placed, tip is in the distal SVC. Persistent diffuse interstitial and airspace opacifications in both lung ruffin without effusions. LITTLE significant change or improvement is noted. Normal size heart. Normal mediastinum and brooke. Normal visualized pulmonary arteries. Normal visualized aortic arch and descending thoracic aorta. There are diffuse degenerative changes of the visualized thoracic spine. There is degenerative osteoarthritis of the bilateral shoulders. There is no demonstrated abnormality of the visualized soft tissue structures of the upper abdomen. RAD/CXR for Line Placement IMPRESSION: Right IJ central venous catheter has been placed since the previous study, tip is in the distal SVC Unchanged interstitial and airspace opacifications in both lung ruffin without effusions Stable positioning of the ET and NG tubes Electronically Signed: Michael Raygoza MD at 17:03 EST , Service support ,
[2021-06-06 09:25] LABS: Bedside Glucose 321 mg/dL (70-110)
[2021-06-06 09:25] LABS: Bedside Glucose 348 mg/dL (70-110)
--- NOTE | 2021-06-06 10:03 | PCM.OP.BLANK ---
Operative Report Date of Procedure: 06/06/21 Central line placement procedure note Indication: IV access/hemodynamic instability/vasoactive medications Procedure: A time-out was completed to verify correct patient, indication, medication allergies, procedure, coagulation studies, informed consent signed, and equipment needed. The patient was placed in the supine position for a central line placement to the rt IJ vein. The patients rt neck was prepped using chlorhexidine and a full body sterile drape was applied. 1% lidocaine was used to anesthetize the surrounding skin. A 7fr 16 cm blue guard triple lumen catheter introduced into the internal jugular vein using the modified Seldinger technique with the assistance of ultrasound. The catheter was threaded smoothly over the guidewire, the guidewire was removed easily, nonpulsatile blood returned. All ports were aspirated of air and flushed with sterile saline. The catheter was sutured in place and covered with an occlusive dressing impregnated with chlorhexidine. Post-procedure: The patient tolerated the procedure well. Vital signs remained stable. EBL 3 cc. No complications. Chest X Ray ordered to confirm tip placement and the absence of pneumothorax. Procedures Hospitalists Procedures: [id number] Insert Non-tunnel CV Cath
--- NOTE | 2021-06-06 10:13 | CASEMGMT ---
Social Work SPENCER received call from SPENCER Dumont with [facility]. Julia inquiring about pt condition and update provided. Pt son is currently in custody of [facility]. Julia will check back with ICU SPENCER on Wednesday for update. SPENCER placed call to pt brother Rolando Galindo. MAVERICK left requesting return call. NIMA Perry
[2021-06-06] MEDS: Chlorhexidine 15 ML PO ×2 (10:39→19:55)
[2021-06-06] MEDS: Acetaminophen 650 MG/20 ML UDC GT ×2 (10:39→19:51)
[2021-06-06] MEDS: Insulin Lispro 100 UNIT/ML INSULN.PEN SC ×3 (10:59→23:46)
--- NOTE | 2021-06-06 11:20 | PCM.RX.CS ---
Consult Pharmacy has been consulted to manage selected antiobiotic: Vancomycin Type of Consult: New start Suspected Infection: Pneumonia Labs: Sodium 144 mmol/L (136-145) 06/06/21 03:15 Potassium 4.0 mmol/L (3.5-5.1) 06/06/21 03:15 Chloride 112 mmol/L (98-107) H 06/06/21 03:15 Carbon Dioxide 23.0 mmol/L (21.0-32.0) 06/06/21 03:15 Anion Gap 9 (5-15) 06/06/21 03:15 BUN 35 mg/dL (7-18) H 06/06/21 03:15 Creatinine 1.92 mg/dL (0.55-1.02) H 06/06/21 03:15 Est GFR (MDRD) Af Amer 37 mL/min (>60) L 06/06/21 03:15 Est GFR (MDRD) Non-Af 30 mL/min (>60) L 06/06/21 03:15 BUN/Creatinine Ratio 18.2 RATIO (10-20) 06/06/21 03:15 Glucose 485 mg/dL (74-106) H* 06/06/21 03:15 Microbiology: Microbiology 06/05/21 10:17 Nasal Secretion SARS-CoV-2 Antigen (Rapid) - Final SARS-CoV-2 (COVID 19) Goal Trough: 15-20 mcg/mL Pharmacy Plan for Drug Dosing: NEW START IV VANCOMYCIN Consulting Physician: Javed Indication: Pneumonia (covid) Goal Trough: 15-20 SrCr: 1.92 CrCl: 44mls/min (Adjusted Body Weight of 74kg) Comments: pt received a 2000mg loading dose 06/06/21 at 0800 Vancomcyin Dose: based on pts height and weight, recommend an initial dose of 1250mg q12h. (note: dose calculated from clinical pharmacology dosing calculator. est trough of 15.5) Pending Level: 06/08/21 at 0730 Pharmacy Service will continue to monitor and adjust dosing as required. Follow-Up Labs: Trough Vancomycin - 06/08/21 at 0730
[2021-06-06 11:26] LABS: Bedside Glucose 304 mg/dL (70-110)
[2021-06-06 11:49] LABS: M R Staph aureus DNA By PCR Negative (Negative); Probe Check PASS; Specimen Processing Control PASS
--- NOTE | 2021-06-06 12:00 | CON.PCM.ID_ITS ---
HPI Consult Data Date of Consult: 06/06/21 HPI Narrative HPI Narrative: BRODY HUERTA, is a 45 F who presents with acute encephalopathy and respiratory failure. Patient was found to be COVID-19 positive. Currently on the ventilator with FiO2 of 50% and PEEP of 14. Patient has multiple comorbidities including diabetes mellitus, obesity, hypertension. Patient was started on low-dose dexamethasone and DVT prophylaxis. Empiric antibacterial therapy was started because of fevers and concern of bacterial superinfection. Patient was also found to have acute renal injury along with a respiratory failure. Chest film and CT scan of the chest I reviewed. I did discuss the case with Dr. Burt earlier this morning. [facility] Medical History Diabetes Incontinence neck and back pain Home Medications losartan 50 mg tablet 25 mg PO DAILY 08/25/17 [History Last Taken 03/02/18] metformin 1,000 mg tablet 1,000 mg PO BID 08/25/17 [History Last Taken 03/02/18] oxybutynin chloride 5 mg tablet 5 mg PO BID 08/25/17 [History Last Taken 03/02/18] cholecalciferol (vitamin D3) 1 cap PO QWEEK 05/08/18 [History Last Taken Unknown] atorvastatin 20 mg PO DAILY 04/14/21 [History Last Taken Unknown] dulaglutide [Trulicity] 1.5 mg SUBCUT QWEEK 04/14/21 [History Last Taken Unknown] glimepiride 2 mg PO DAILY 04/14/21 [History Last Taken Unknown] hydrocodone-acetaminophen 1 tab PO Q6H PRN 3 Days #10 tab 04/14/21 [Rx Last Taken Unknown] Allergy/AdvReac Type Severity Reaction Status Date / Time No Known Allergies Allergy Verified 06/05/21 09:19 Surgical History History of foot surgery Social History Smoking Status: Never smoker alcohol intake: never Lab / Micro Data Result Diagrams: 06/06/21 03:15 06/06/21 03:15 Labs: Laboratory Results - last 24 hr 06/05/21 12:27: POC Glucose > 500 H* 06/05/21 14:40: Lactic Acid 2.3 H* 06/05/21 17:02: POC Glucose > 500 H* 06/05/21 19:54: POC Glucose > 500 H* 06/06/21 00:05: POC Glucose > 500 H* 06/06/21 02:12: POC Glucose > 500 H* 06/06/21 03:15: WBC 7.9, RBC 3.87 L, Hgb 12.3, Hct 38.6, MCV 99.7 H, MCH 31.8, MCHC 31.9 L, RDW Std Deviation 48.2 H, RDW Coeff of Lencho 13.1, Plt Count 157, MPV 10.7, Immature Gran % (Auto) 0.800, Neut % (Auto) 90.5 H, Lymph % (Auto) 6.3 L, [place] % (Auto) 2.4, Eos % (Auto) 0.0, Baso % (Auto) 0.0, Absolute Neuts (auto) 7.2, Absolute Lymphs (auto) 0.50 L, Nucleated RBC % 0, Atypical Lymphocytes 1+ 06/06/21 03:15: Sodium 144, Potassium 4.0, Chloride 112 H, Carbon Dioxide 23.0, Anion Gap 9, BUN 35 H, Creatinine 1.92 H, Estim Creat Clear Calc 32.62, Est GFR (MDRD) Af Amer 37 L, Est GFR (MDRD) Non-Af 30 L, BUN/Creatinine Ratio 18.2, Glucose 485 H*, Calcium 7.2 L, Total Bilirubin 0.30, AST 57 H, ALT 20, Alkaline Phosphatase 61, Total Protein 6.9, Albumin 1.9 L, Globulin 5.0 H, A lbumin/Globulin Ratio 0.4 L 06/06/21 03:15: Phosphorus 1.3 L, Magnesium 2.6 06/06/21 03:15: Acetone Level SMALL H 06/06/21 03:24: POC Glucose 447 H 06/06/21 04:08: POC Glucose 410 H 06/06/21 04:57: POC Glucose 385 H 06/06/21 06:10: POC Glucose 374 H 06/06/21 07:57: POC Glucose 321 H 06/06/21 08:15: MRSA (PCR) Negative 06/06/21 08:52: POC Glucose 348 H 06/06/21 10:59: POC Glucose 304 H Micro: Microbiology 06/05/21 10:10 Urine Catheter - Devries Urine Culture - Preliminary Culture exhibits no growth. 06/05/21 10:17 Nasal Secretion SARS-CoV-2 Antigen (Rapid) - Final SARS-CoV-2 (COVID 19) ABG Data ABG results: ABG 06/05/21 14:59 Specimen Type ART Sample Site L Radial pH 7.33 L Bicarbonate Actual 23.2 Total CO2 25 Base Excess -3 L O2 Saturation 90 L O2 % 50 ABG pCO2 43.8 ABG pO2 62 L José Miguel Test Positive Respiration Rate 12 O2 Delivery Device Adult Vent Vent Mode AC Tidal Volume 400 POC PEEP 18 Radiology Impression Cervical Spine CT 06/05/21 09:31 IMPRESSION: Normal unenhanced CT examination of the cervical spine. Electronically Signed: Quirino Khan MD at 12:13 EST , Service support , Chest/Abdomen/Pelvis CT 06/05/21 09:31 IMPRESSION: Diffuse bilateral pulmonary infiltration. Fatty infiltration of the liver. Right ovarian cyst. Electronically Signed: Quirino Khan MD at 11:59 EST , Service support , Respiratory failure secondary to COVID-19 pneumonia. Strongly agree with low- dose dexamethasone and DVT prophylaxis. Empiric antibacterial therapy is reasonable, if sputum culture does not yield any bacterial pathogens very low threshold to discontinue both vancomycin and cefepime.
[2021-06-06] MEDS: Vital AF 1.2 Cal Liquid 1,000 ML 70 ML GT (12:50)
--- NOTE | 2021-06-06 13:29 | CASEMGMT ---
Social Work SPENCER placed call to pt brother Rolando Galindo. Rolando states to his knowledge, pt does not have a health care POA. Pt parents are both . Pt has two brothers, Rolando and Mazin [phone]). Rolando states pt is closer to her brother Mazin than to him. SPENCER updated Rolando that he and Mazin are pt legal medical decision makers and Rolando is understanding and trying to reach Mazin to update on pt disposition. Rolando states pt lives at home with her 12 year old son. 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 Rolando does express concern for pt's son and inquiring how he can get information about him. SEPNCER placed call to Julia at [facility] and provided Rolando's phone number. Julia will contact Rolando regarding pt son. SPENCER updated Rolando. SPENCER will continue to follow. NIMA Perry
[2021-06-06] MEDS: Ibuprofen 100 MG/5 ML UDC 600 MG GT (14:08)
[2021-06-06] MEDS: LORazepam 2 MG/ML Syringe IV (14:21)
--- NOTE | 2021-06-06 14:23 | CT_ITS ---
STUDY: CT BRAIN WITHOUT CONTRAST REASON FOR EXAM: Female, 45 years old. Seizures RADIATION DOSAGE (If Supplied By Facility): CTDIvol = ( 44.99 ) mGy, DLP = ( 796.11 ) mGycm TECHNIQUE: Transaxial CT imaging of the brain was performed without administration of intravenous contrast material. Individualized dose optimization techniques were used for this CT. COMPARISON: Comparison is made with prior study dated 06/05/2021. FINDINGS: Normal soft tissue structures. Normal calvarium. Normal size ventricles and extra-axial spaces for the patient''s age. Normal white matter tracts of the cerebral hemispheres. Normal basal ganglia and thalami. Normal brainstem. Normal cerebellum. There is no intracranial hemorrhage. There are no findings of an acute ischemic infarction. Mild degree of mucosal thickening of the maxillary sinuses and sphenoid sinus. CT/Brain/Head without Contrast IMPRESSION: Normal unenhanced CT scan of the brain. Stable examination. Electronically Signed: Quirino Khan MD at 15:44 EST , Service support ,
[2021-06-06] MEDS: Propofol 200 MG/20 ML Vial 30 MG IV BOLUS (14:45)
[2021-06-06 17:05] LABS: Bedside Glucose 452 mg/dL (70-110)
--- NOTE | 2021-06-06 18:03 | CASEMGMT ---
CYN CM NOTE: Insurance review for hospitals In-network with [facility] Insurance if transfer is recommended is as follows: [facility], [place], [facility], [facility], [facility], [facility], [facility] and . Alvin NAVARRO RN CM
[2021-06-06] MEDS: Polyethylene Glycol 3350 17 GM PACKET GT (19:52)
[2021-06-06] MEDS: Senna/Docusate Sodium 1 Tablet 2 TABLET GT (19:52)
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
[2021-06-07] VITALS (45 sets, daily range): BP systolic 78–136; BP diastolic 50–96; PULSE 8–100; RESP 16–42; TEMP 37.9–39.3; O2SAT 90–97
[2021-06-07] MEDS: Dexmedetomidine 1,000 mcg in 0.9% NS 240 mL 36 MCG CONT INF (00:11)
[2021-06-07] MEDS: Acetaminophen 650 MG/20 ML UDC GT ×2 (01:48→12:50)
[2021-06-07 02:00] LABS: Bedside Glucose 475 mg/dL (70-110)
[2021-06-07] MEDS: LORazepam 2 MG/ML Syringe IV ×3 (03:44→13:33)
[2021-06-07 03:49] LABS: Absolute Lymphocyte Count 0.73 X10^3/uL (0.83-4.51); Absolute Neutrophil Count 8.7 X10^3/uL (2.0-7.7); Basophil# 0.02 X10^3/uL; Basophil% 0.2 % (0-1); Hematocrit 39.1 % (37-47); Hemoglobin 12.2 g/dL (12.0-15.0); Lymphocyte # 0.73 X10^3/ul (0.83-4.51); Lymphocyte % 7.4 % (19-41); Mean Corp Hgb Conc 31.2 g/dL (32-36); Mean Corpuscular Volume 99.5 fL (81-99); Mean Platelet Vol. 11.6 fl (6.2-12.0); Monocyte# 0.34 X10^3/uL; Monocyte% 3.5 % (0-10); NRBC Flagged by Analyzer 0 % (0-5); Neutrophil # 8.65 X10^3/uL (2.7-7.7); Neutrophil % 88.2 % (47-70); POSITIVE MORPHOLOGY YES; Platelet Count 132 K/mm3 (150-450); RBC Distribution Width CV 13.1 % (11.6-14.6); RBC Distribution Width SD 47.8 fl (35.1-43.9); Red Blood Count 3.93 M/mm3 (4.2-5.4); White Blood Count 9.8 K/mm3 (4.4-11.0)
[2021-06-07 03:58] LABS: Differential Indicated SCAN CRITERIA MET
[2021-06-07 04:48] LABS: ALB/GLOB Ratio 0.4 RATIO (0.9-2.4); AST(SGOT) 63 U/L (15-37); Alanine Aminotransfer ALT/SGPT 24 U/L (13-56); Albumin, Serum 1.7 g/dL (3.2-5.0); Alkaline Phosphatase 62 U/L (45-117); Anion Gap 8 (5-15); BUN 48 mg/dL (7-18); BUN/Creat Ratio 20.7 RATIO (10-20); Calcium,Total 6.9 mg/dL (8.5-10.1); Chloride 113 mmol/L (98-107); Creatinine, Serum 2.32 mg/dL (0.55-1.02); EST Glomerular Filtration Rate 24 mL/min (>60); Est Glom Filt Rate - Afr Amer 29 mL/min (>60); Globulin 4.8 g/dL (2.2-4.2); Glucose 617 mg/dL (74-106); Potassium 4.5 mmol/L (3.5-5.1); Protein, Total 6.5 g/dL (6.4-8.2); Sodium Level 141 mmol/L (136-145)
--- NOTE | 2021-06-07 05:48 | PN.CC_ITS ---
Assessment & Plan Assessment/Plan (1) Respiratory failure: (2) COVID-19: PLAN: RECOMMENDATIONS: 1. Continue patient on assist control mode mechanical ventilation and wean FiO2/PEEP for saturations greater than 90%. 2. Continue broad-spectrum antimicrobials. 3. Continue Decadron as ordered to complete 10 days of therapy. 4. Increase Lantus dosing and continue high intensity sliding scale coverage. 5. Discontinue Precedex and restart propofol. Continue fentanyl as well. 6. Start Keppra. Obtain MRI brain when feasible. 7. Continue tube feeds as tolerated. 8. Continue prophylactic Lovenox. IMPRESSIONS: 1. Acute combined respiratory failure secondary to COVID-19 pneumonia The patient presented to the hospital with altered mentation and hypoxemia and was intubated in the emergency department, after she failed to respond to noninvasive positive pressure ventilatory support. Further work-up revealed that the patient was positive for COVID-19 pneumonia. The patient has been placed on Decadron. However, given that she is currently already intubated and has some underlying renal insufficiency, remdesivir and baricitinib were not felt to be indicated. Continue patient on assist control mode of mechanical ventilation and wean FiO2/PEEP for saturations greater than 90%. Continue Lovenox as ordered. Continue broad-spectrum antimicrobials. Continue tube feeds as tolerated. 2. Acute kidney injury Most likely prerenal in etiology and related to acute presentation. We will continue to monitor urine output for now. No current indication for renal replacement therapy. Nephrology consultation will be obtained. 3. Encephalopathy/new onset seizures Appears secondary to acute presentation with COVID-19 pneumonia with associated hypercapnia. On June 06, the patient developed new onset seizure activity. She was placed on as needed Ativan and seizure precautions. Propofol will be preferentially utilized for sedation. Tele-neurology consultation was obtained and the patient was started on Keppra. Plan to obtain MRI when feasible. Unable to perform EEG at the current time. 4. Hyperglycemia The patient has known diabetes mellitus, which will be exacerbated by the use of Decadron. Plan to increase the patient's basal insulin regimen today and continue high intensity sliding scale coverage. 5. Obesity/hyperlipidemia/diabetes mellitus/hypertension Complicates care, management, recovery and prognosis. Hold home antihypertensives. TIME: 38 minutes of critical care time, independent of procedures, was spent addressing the patient's acute combined respiratory failure secondary to COVID- 19 pneumonia, acute kidney injury, encephalopathy, new onset seizures, hyperglycemia, review of all data and collaboration with the care team. Subjective Subjective The patient was seen and examined at the bedside this morning. Events from the last 24 hours have been reviewed. She is currently vent day #3. The patient has remained persistently febrile over the last 24 hours with a T-max of 104.1 ?F. Yesterday afternoon, the patient demonstrated what appeared to be some tonic-clonic seizure activity. She was administered IV Ativan which led to resolution of those symptoms. A stat head CT was then obtained which was unremarkable. The patient remains hemodynamically stable on assist control mode of mechanical ventilation with an FiO2 requirement of 60% and PEEP of 8. Platelet count has dropped to 132,000. Her creatinine has again increased to 2.32. Glucose is elevated at 617. At approximately 0345 this morning, the patient once again demonstrated generalized tonic-clonic seizure activity, which was again treated with IV Ativan. Neurology consultation has been placed. Objective Data Objective Data The patient's most recent lab work, culture data and imaging studies have all been personally reviewed. Rapid coronavirus antigen testing was positive on June 05. Sputum, blood and urine cultures are pending. Vital Signs: Vital Signs Temp Pulse Resp BP Pulse Ox 102 F H 66 29 H 135/95 H 94 06/07/21 05:00 06/07/21 05:00 06/07/21 05:00 06/07/21 05:00 06/07/21 05:00 Oxygen Delivery Method Mechanical Ventilator Weight: 99.8 kg Body Mass Index (BMI) 35.3 Intake & Output: Intake and Output for Last 24 Hours 06/05/21 06/06/21 06/07/21 23:59 23:59 23:59 Intake Total 3616.14 / 3635.54 4497.70 / 4846.70 800.65 / 800.65 Output Total 1240 / 1590 1375 / 1625 600 / 600 Balance 2376.14 / 2045.54 3122.70 / 3221.70 200.65 / 200.65 Lab / Micro Data Attestation: I reviewed the patient's lab results. Result Diagrams: 06/07/21 03:30 06/07/21 03:30 Labs: Laboratory Results - last 24 hr 06/06/21 03:24: POC Glucose 447 H 06/06/21 06:10: POC Glucose 374 H 06/06/21 07:57: POC Glucose 321 H 06/06/21 08:15: MRSA (PCR) Negative 06/06/21 08:52: POC Glucose 348 H 06/06/21 10:59: POC Glucose 304 H 06/06/21 16:58: POC Glucose 452 H* 06/06/21 23:45: POC Glucose 475 H* 06/07/21 03:30: WBC 9.8, RBC 3.93 L, Hgb 12.2, Hct 39.1, MCV 99.5 H, MCH 31.0, MCHC 31.2 L, RDW Std Deviation 47.8 H, RDW Coeff of [place]cho 13.1, Plt Count 132 L, MPV 11.6, Immature Gran % (Auto) 0.700, Neut % (Auto) 88.2 H, Lymph % (Auto) 7.4 L, [place] % (Auto) 3.5, Eos % (Auto) 0.0, Baso % (Auto) 0.2, Absolute Neuts (auto) 8.7 H, Absolute Lymphs (auto) 0.73 L, Nucleated RBC % 0 06/07/21 03:30: Sodium 141, Potassium 4.5, Chloride 113 H, Carbon Dioxide 20.0 L , Anion Gap 8, BUN 48 H, Creatinine 2.32 H, Estim Creat Clear Calc 27.00, Est GFR (MDRD) Af Amer 29 L, Est GFR (MDRD) Non-Af 24 L, BUN/Creatinine Ratio 20.7 H , Glucose 617 H*, Calcium 6.9 L, Total Bilirubin 0.50, AST 63 H, ALT 24, Alkaline Phosphatase 62, Total Protein 6.5, Albumin 1.7 L, Globulin 4.8 H, Albumin/Globulin Ratio 0.4 L Micro: Microbiology 06/05/21 14:34 Sputum, Induced/Lukens Gram Stain - Final 06/05/21 14:34 Sputum, Induced/Lukens Respiratory Culture - Preliminary Mixed Culture 06/05/21 10:10 Urine Catheter - Devries Urine Culture - Preliminary Culture exhibits no growth. 06/05/21 10:17 Nasal Secretion SARS-CoV-2 Antigen (Rapid) - Final SARS-CoV-2 (COVID 19) Radiography Diagnostic Testing: Radiology Impression Chest X-Ray 06/06/21 08:45 IMPRESSION: Right IJ central venous catheter has been placed since the previous study, tip is in the distal SVC Unchanged interstitial and airspace opacifications in both lung ruffin without effusions Stable positioning of the ET and NG tubes Electronically Signed: Michael Raygoza MD at 17:03 EST , Service support , Brain CT 06/06/21 14:23 IMPRESSION: Normal unenhanced CT scan of the brain. Stable examination. Electronically Signed: Quirino Khan MD at 15:44 EST , Service support , Physical Exam Const General Appearance: intubated and patient mechanically ventilated Nutritional Appearance: obese HEENT normocephalic HEENT Narrative: Nonbleeding laceration to left temporal region Mouth: endotracheal tube in place and OG tube in place Eyes PERRL and conjunctivae normal Neck supple General: trachea midline Chest inspection of chest normal Resp Effort and Inspection: tachypneic Auscultation: diminished lung sounds Cardio regular rate and regular rhythm GI normal to inspection, nondistended, normoactive bowel sounds Extremity no clubbing, cyanosis or edema Extremity Narrative: Cool to the touch. Skin Skin Narrative: Forearm hematoma Neuro Sensorium / Orientation: sedated on vent Charges/Coding Procedures Hospitalists Procedures: 09268 Critial Care 1st Hr
--- NOTE | 2021-06-07 06:17 | TELEMED_ITS ---
[facility] has confirmed receipt of a request for visit. This document confirms receipt of the order initiating the consult. To find the results of the consultation, please view the patient's reports for the scanned Telemed Consult.
[2021-06-07] MEDS: Propofol 10MG/Ml 1,000 MG/100 ML Bottle 5.8 MG CONT INF (06:38)
[2021-06-07] MEDS: Insulin Lispro 100 UNIT/ML INSULN.PEN SC ×3 (06:48→18:03)
[2021-06-07] MEDS: Propofol 10MG/Ml 1,000 MG/100 ML Bottle 14.4 MG CONT INF (10:13)
[2021-06-07] MEDS: Senna/Docusate Sodium 1 Tablet 2 TABLET GT (10:49)
[2021-06-07] MEDS: Enoxaparin 30 MG/0.3 ML Syringe SC ×2 (10:49→23:43)
[2021-06-07] MEDS: Polyethylene Glycol 3350 17 GM PACKET GT (10:49)
[2021-06-07] MEDS: TITRATION PARAMETER CHANGE 1 EACH IV (10:50)
[2021-06-07] MEDS: Nystatin Powder 15gm Bottle 1 APPLIC TOPICAL ×2 (10:50→21:20)
[2021-06-07] MEDS: Chlorhexidine 15 ML PO ×2 (10:51→21:19)
--- NOTE | 2021-06-07 10:51 | PN.HOSP_ITS ---
Subjective Subjective Became tachypneic today. Sedation was increased. Fevers and cooling blanket applied. Seen by teleneurology and felt to have seizures and recommended AEDs. Objective Data Objective Data Vital Signs: Vital Signs Temp Pulse Resp BP Pulse Ox 39.0 C H 100 35 H 120/85 H 90 06/07/21 08:00 06/07/21 09:29 06/07/21 10:30 06/07/21 08:00 06/07/21 09:29 Oxygen Delivery Method Mechanical Ventilator Weight: 99.8 kg Body Mass Index (BMI) 35.3 Intake & Output: Intake and Output for Last 24 Hours 06/05/21 06/06/21 06/07/21 23:59 23:59 23:59 Intake Total 3616.14 / 3635.54 4497.70 / 4846.70 1088.84 / 1088.84 Output Total 1240 / 1590 1375 / 1625 600 / 600 Balance 2376.14 / 2045.54 3122.70 / 3221.70 488.84 / 488.84 Lab / Micro Data Result Diagrams: 06/07/21 03:30 06/07/21 03:30 Labs: Laboratory Results - last 24 hr 06/06/21 08:15: MRSA (PCR) Negative 06/06/21 10:59: POC Glucose 304 H 06/06/21 16:58: POC Glucose 452 H* 06/06/21 23:45: POC Glucose 475 H* 06/07/21 03:30: WBC 9.8, RBC 3.93 L, Hgb 12.2, Hct 39.1, MCV 99.5 H, MCH 31.0, MCHC 31.2 L, RDW Std Deviation 47.8 H, RDW Coeff of [place] 13.1, Plt Count 132 L, MPV 11.6, Immature Gran % (Auto) 0.700, Neut % (Auto) 88.2 H, Lymph % (Auto) 7.4 L, [place] % (Auto) 3.5, Eos % (Auto) 0.0, Baso % (Auto) 0.2, Absolute Neuts (auto) 8.7 H, Absolute Lymphs (auto) 0.73 L, Nucleated RBC % 0 06/07/21 03:30: Sodium 141, Potassium 4.5, Chloride 113 H, Carbon Dioxide 20.0 L , Anion Gap 8, BUN 48 H, Creatinine 2.32 H, Estim Creat Clear Calc 27.00, Est GFR (MDRD) Af Amer 29 L, Est GFR (MDRD) Non-Af 24 L, BUN/Creatinine Ratio 20.7 H , Glucose 617 H*, Calcium 6.9 L, Total Bilirubin 0.50, AST 63 H, ALT 24, Alkaline Phosphatase 62, Total Protein 6.5, Albumin 1.7 L, Globulin 4.8 H, Albumin/Globulin Ratio 0.4 L Micro: Microbiology 06/05/21 10:10 Blood Culture (Wb) - Anticubital Right Blood Culture - Preliminary No growth in 48 hours. 06/05/21 09:45 Blood Culture (Wb) - Left Wrist Blood Culture - Preliminary No growth in 48 hours. 06/05/21 14:34 Sputum, Induced/Lukens Gram Stain - Final 06/05/21 14:34 Sputum, Induced/Lukens Respiratory Culture - Preliminary Mixed Culture 06/05/21 10:10 Urine Catheter - Devries Urine Culture - Preliminary Culture exhibits no growth. 06/05/21 10:17 Nasal Secretion SARS-CoV-2 Antigen (Rapid) - Final SARS-CoV-2 (COVID 19) Radiography Diagnostic Testing: Radiology Impression Chest X-Ray 06/06/21 08:45 IMPRESSION: Right IJ central venous catheter has been placed since the previous study, tip is in the distal SVC Unchanged interstitial and airspace opacifications in both lung ruffin without effusions Stable positioning of the ET and NG tubes Electronically Signed: Michael Raygoza MD at 17:03 EST , Service support , Brain CT 06/06/21 14:23 IMPRESSION: Normal unenhanced CT scan of the brain. Stable examination. Electronically Signed: Quirino Khan MD at 15:44 EST , Service support , Physical Exam Const Constitutional Narrative: intubated and sedated. HEENT HEENT Narrative: pupils miotic and non-responsive to light. absent corneal re flex. Neck no lymphadenopathy Resp Resp Narrative: coarse breath sounds bilaterally. Cardio regular rate, regular rhythm, S1 normal heart sound and S2 normal heart sound GI normal to inspection, nondistended, normoactive bowel sounds, soft to palpation, non-tender and non-distended Extremity Extremity Narrative: mottling in feet bilaterally. no edema. 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 Acute hypoxic and hypercapnic respiratory failure * 2/2 COVID 19 pneumonia +/- pneumonia * on vent. FiO2 increased today due to tachypnea * on vanc and cefepime 2. Acute COVID 19 pneumonia * unvaccinated * unknown time of onset of Sx, but her brother said she was well Thanksgiving, but stopped posting to social media after Thanksgiving (he does not know, but suspects she may have been ill shortly afterwards) * on dexamethasone 3. Seizures * new onset * no prior seizure disorder according to her brother (he himself had childhood epilepsy) * etiology unclear at present: COVID 19, anoxic encephalopathy, TBI * cannot rule out status epilepticus * had events before cefepime started * started on levetiracetam * EEG unavailable at present at [facility] * MRI when HDS * needs transfer to tertiary facility for further neurologic evaluation: EEG, in person neurology 4. ANAT * ongoing * avoid IVF given resp failure and COVID 19 * avoid nephrotoxic agents * monitor 5. Encephalopathy * anoxic v metabolic v TBI * needs EEG 6. VTE prophylaxis: LMWH 7. DM2 * uncontrolled * previously non-insulin dependent * insulin glargine 50 BID started today Greater than 60 minutes of which greater than for present time was discussing the case with the patient's brother, Jim. Updating on him on her condition, seizures, possible anoxic encephalopathy and need for referral to a tertiary facility. Also discussing with him that a tertiary facility may not be exc epting her given the current influx of patients throughout the local area. I did inform him that we may be treating her without all the proper information including the fact that we cannot do an EEG at our facility at present. He expressed understanding and expressed gratitude for the help that she is receiving. I contacted [facility] as well as [facility] and they are both not taking outside transfers at this time. I have contacted [facility] and they have taken the information and I am currently waiting to hear back to see if patient is accepted at any of their facilities. * found down at home with Charges/Coding Visit Charges Inpatient E&M: 29269 Subs Hosp L3
[2021-06-07 12:06] LABS: Bedside Glucose > 500 mg/dL (70-110)
[2021-06-07] MEDS: CHLORHEXIDINE GLUC 2% CLOTH 1 EACH TOWELETTE TOPICAL (13:07)
[2021-06-07] MEDS: Vital AF 1.2 Cal Liquid 1,000 ML 70 ML GT (13:14)
[2021-06-07] MEDS: levETIRAcetam IV 1,000 MG/100 ML BAG 400 MG IV (13:43)
[2021-06-07] MEDS: Propofol 10MG/Ml 1,000 MG/100 ML Bottle 28.8 MG CONT INF ×4 (14:56→23:14)
[2021-06-07 15:36] LABS: Bedside Glucose > 500 mg/dL (70-110)
[2021-06-07 20:05] LABS: Bedside Glucose 470 mg/dL (70-110)
[2021-06-07] MEDS: Menthol/Lanolin/Calamine/Znox 113 GM Tube 1 APPLIC TOPICAL (21:19)
--- NOTE | 2021-06-07 21:59 | PCM.CONS.R ---
Assessment & Plan Assessment/Plan (1) COVID-19: (2) ANAT (acute kidney injury): PLAN: normal baseline. cr is worse. UA shows protein RBC. CT abd without hydronephrosis. ANAT is likely ATN. no acute indications for HD. discussed with staff. possible transfer to tertiary care centre in view of seizures. HPI Consult Data Date of Consult: 06/07/21 HPI Narrative HPI Narrative: BRODY HUERTA, is a 45 F who presents to hospital with Hyperglycemia, COVID pneumonia, possible seizures. renal consulted for ANAT. patient is currently intubated, sedated. non oliguric. Cr worse today. ROS can not be obtained [facility] Medical History Diabetes Incontinence neck and back pain Home Medications losartan 50 mg tablet 25 mg PO DAILY 08/25/17 [History Last Taken 03/02/18] metformin 1,000 mg tablet 1,000 mg PO BID 08/25/17 [History Last Taken 03/02/18] oxybutynin chloride 5 mg tablet 5 mg PO BID 08/25/17 [History Last Taken 03/02/18] cholecalciferol (vitamin D3) 1 cap PO QWEEK 05/08/18 [History Last Taken Unknown] atorvastatin 20 mg PO DAILY 04/14/21 [History Last Taken Unknown] dulaglutide [Trulicity] 1.5 mg SUBCUT QWEEK 04/14/21 [History Last Taken Unknown] glimepiride 2 mg PO DAILY 04/14/21 [History Last Taken Unknown] hydrocodone-acetaminophen 1 tab PO Q6H PRN 3 Days #10 tab 04/14/21 [Rx Last Taken Unknown] Allergy/AdvReac Type Severity Reaction Status Date / Time No Known Allergies Allergy Verified 06/05/21 09:19 Surgical History History of foot surgery Social History Smoking Status: Never smoker alcohol intake: never ROS ROS Narrative unable to review Physical Exam Narrative exam minimized due to covid intubated sedated britton Lab / Micro Data Result Diagrams: 06/07/21 03:30 06/07/21 03:30 Labs: Laboratory Results - last 24 hr 06/06/21 23:45: POC Glucose 475 H* 06/07/21 03:30: WBC 9.8, RBC 3.93 L, Hgb 12.2, Hct 39.1, MCV 99.5 H, MCH 31.0, MCHC 31.2 L, RDW Std Deviation 47.8 H, RDW Coeff of Lencho 13.1, Plt Count 132 L, MPV 11.6, Immature Gran % (Auto) 0.700, Neut % (Auto) 88.2 H, Lymph % (Auto) 7.4 L, [place] % (Auto) 3.5, Eos % (Auto) 0.0, Baso % (Auto) 0.2, Absolute Neuts (auto) 8.7 H, Absolute Lymphs (auto) 0.73 L, Nucleated RBC % 0 06/07/21 03:30: Sodium 141, Potassium 4.5, Chloride 113 H, Carbon Dioxide 20.0 L, Anion Gap 8, BUN 48 H, Creatinine 2.32 H, Estim Creat Clear Calc 27.00, Est GFR (MDRD) Af Amer 29 L, Est GFR (MDRD) Non-Af 24 L, BUN/Creatinine Ratio 20.7 H, Glucose 617 H*, Calcium 6.9 L, Total Bilirubin 0.50, AST 63 H, ALT 24, Alkaline Phosphatase 62, Total Protein 6.5, Albumin 1.7 L, Globulin 4.8 H, Albumin/Globulin Ratio 0.4 L 06/07/21 06:36: POC Glucose > 500 H* 06/07/21 12:45: POC Glucose > 500 H* 06/07/21 17:23: POC Glucose 470 H* Micro: Microbiology 06/05/21 10:10 Blood Culture (Wb) - Anticubital Right Blood Culture - Preliminary No growth in 48 hours. 06/05/21 09:45 Blood Culture (Wb) - Left Wrist Blood Culture - Preliminary No growth in 48 hours.
[2021-06-07] MEDS: Insulin Lispro 100 UNIT/ML INSULN.PEN 20 UNIT SC (23:56)
[2021-06-08] VITALS (32 sets, daily range): BP systolic 95–117; BP diastolic 59–78; PULSE 74–108; RESP 16–41; TEMP 37.5–38.6; O2SAT 90–98
[2021-06-08 00:35] LABS: Anion Gap 9 (5-15); BUN 51 mg/dL (7-18); BUN/Creat Ratio 22.1 RATIO (10-20); Calcium,Total 7.1 mg/dL (8.5-10.1); Chloride 116 mmol/L (98-107); Creatinine, Serum 2.31 mg/dL (0.55-1.02); EST Glomerular Filtration Rate 24 mL/min (>60); Est Glom Filt Rate - Afr Amer 30 mL/min (>60); Estimated Creatinine Clearance 27.12 ml/min; Glucose 674 mg/dL (74-106); Potassium 4.1 mmol/L (3.5-5.1); Sodium Level 144 mmol/L (136-145)
[2021-06-08] MEDS: Propofol 10MG/Ml 1,000 MG/100 ML Bottle 28.8 MG CONT INF ×8 (00:45→23:00)
[2021-06-08 01:01] LABS: Bedside Glucose > 500 mg/dL (70-110)
[2021-06-08 04:26] LABS: Absolute Lymphocyte Count 0.74 X10^3/uL (0.83-4.51); Absolute Neutrophil Count 12.9 X10^3/uL (2.0-7.7); Basophil# 0.01 X10^3/uL; Basophil% 0.1 % (0-1); Eosinophil# 0.03 X10^3/uL; Eosinophils% 0.2 % (0-5); Hematocrit 36.5 % (37-47); Lymphocyte # 0.74 X10^3/ul (0.83-4.51); Lymphocyte % 5.2 % (19-41); Mean Corp Hgb Conc 32.9 g/dL (32-36); Mean Corpuscular Hgb 32.2 pg (27.0-32.0); Mean Corpuscular Volume 97.9 fL (81-99); Mean Platelet Vol. 11.7 fl (6.2-12.0); Monocyte# 0.25 X10^3/uL; Monocyte% 1.8 % (0-10); NRBC Flagged by Analyzer 0 % (0-5); Neutrophil # 12.93 X10^3/uL (2.7-7.7); Neutrophil % 91.6 % (47-70); POSITIVE MORPHOLOGY YES; Platelet Count 105 K/mm3 (150-450); RBC Distribution Width CV 13.5 % (11.6-14.6); RBC Distribution Width SD 49.2 fl (35.1-43.9); Red Blood Count 3.73 M/mm3 (4.2-5.4); White Blood Count 14.1 K/mm3 (4.4-11.0)
[2021-06-08 04:28] LABS: Differential Indicated SCAN CRITERIA MET
[2021-06-08 05:07] LABS: ALB/GLOB Ratio 0.3 RATIO (0.9-2.4); AST(SGOT) 58 U/L (15-37); Alanine Aminotransfer ALT/SGPT 23 U/L (13-56); Albumin, Serum 1.5 g/dL (3.2-5.0); Alkaline Phosphatase 85 U/L (45-117); Anion Gap 9 (5-15); BUN 48 mg/dL (7-18); BUN/Creat Ratio 20.8 RATIO (10-20); Chloride 114 mmol/L (98-107); Creatinine, Serum 2.31 mg/dL (0.55-1.02); EST Glomerular Filtration Rate 24 mL/min (>60); Est Glom Filt Rate - Afr Amer 30 mL/min (>60); Estimated Creatinine Clearance 27.12 ml/min; Globulin 4.6 g/dL (2.2-4.2); Glucose 628 mg/dL (74-106); Potassium 3.8 mmol/L (3.5-5.1); Protein, Total 6.1 g/dL (6.4-8.2); Sodium Level 143 mmol/L (136-145)
[2021-06-08] MEDS: Vital AF 1.2 Cal Liquid 1,000 ML 70 ML GT ×2 (05:12→15:31)
[2021-06-08] MEDS: Insulin Lispro 100 UNIT/ML INSULN.PEN SC ×3 (05:32→18:12)
[2021-06-08 05:44] LABS: Differential Comment SCANNED
--- NOTE | 2021-06-08 06:25 | PN.CC_ITS ---
Assessment & Plan Assessment/Plan (1) Respiratory failure: QUALIFIERS: Chronicity: acute Respiratory failure complication: hypoxia Qualified Code(s): J96.01 - Acute respiratory failure with hypoxia (2) COVID-19: PLAN: RECOMMENDATIONS: 1. Continue patient on assist control mode mechanical ventilation and wean FiO2/PEEP for saturations greater than 90%. 2. Continue antimicrobials pending finalized culture results. 3. Continue Decadron as ordered to complete 10 days of therapy. 4. Increase Lantus dosing and continue high intensity sliding scale coverage. 5. Continue fentanyl and propofol for sedation. 6. Continue Keppra as ordered along with as needed Ativan and seizure precautions. 7. Continue tube feeds as tolerated. 8. Continue prophylactic Lovenox. IMPRESSIONS: 1. Acute combined respiratory failure secondary to COVID-19 pneumonia The patient presented to the hospital with altered mentation and hypoxemia and was intubated in the emergency department, after she failed to respond to noninvasive positive pressure ventilatory support. Further work-up revealed that the patient was positive for COVID-19 pneumonia. The patient will be continued on Decadron to complete 10 days of therapy. Given that she was already intubated and has some underlying renal insufficiency, remdesivir and baricitinib were not felt to be indicated. Continue patient on assist control mode of mechanical ventilation and wean FiO2/PEEP for saturations greater than 90%. Continue Lovenox as ordered. Continue empiric antimicrobials. Continue tube feeds as tolerated. 2. Acute kidney injury Most likely prerenal in etiology and related to acute presentation. We will continue to monitor urine output for now. No current indication for renal replacement therapy. Nephrology is currently following to assist with medical management. 3. Encephalopathy/new onset seizures Appears secondary to acute presentation with COVID-19 pneumonia with associated hypercapnia. On June 06, the patient developed new onset seizure activity. She was placed on as needed Ativan and seizure precautions. Propofol will be preferentially utilized for sedation. Tele-neurology consultation was obtained and the patient was started on Keppra. Unable to perform EEG at the current time. 4. Hyperglycemia The patient has known diabetes mellitus, which will be exacerbated by the use of Decadron. Plan to increase the patient's basal insulin regimen today and continue high intensity sliding scale coverage. 5. Obesity/hyperlipidemia/diabetes mellitus/hypertension Complicates care, management, recovery and prognosis. Hold home antihypertensives. TIME: 35 minutes of critical care time, independent of procedures, was spent addressing the patient's acute combined respiratory failure secondary to COVID- 19 pneumonia, acute kidney injury, encephalopathy, new onset seizures, hyperglycemia, review of all data and collaboration with the care team. Subjective Subjective The patient was seen and examined at the bedside this morning. Events from the last 24 hours have been reviewed. The patient is currently vent day #4. She remains on assist control mode mechanical ventilation with an FiO2 requirement of 65% and PEEP of 8. The patient is currently sedated on propofol and fentanyl. She is currently requiring Levophed at 5 mcg/min to maintain hemodynamic stability. Her blood sugars still remain significantly elevated. She is currently tolerating tube feeds. No further seizure activity has been noted by the nursing staff. The patient is currently afebrile. She is documented to be overall net +7.6 L for the hospitalization. She remains on empiric antimicrobials, twice daily Lovenox and Decadron. Platelet count is low at 105,000. Creatinine remains elevated at 2.3. Glucose was noted to be 628. Anion gap remains closed. Objective Data Objective Data The patient's most recent lab work, culture data and imaging studies have all been personally reviewed. Rapid coronavirus antigen testing was positive on June 05. Sputum, blood and urine cultures are pending. Vital Signs: Vital Signs Temp Pulse Resp BP Pulse Ox 100.1 F H 95 32 H 109/78 93 06/08/21 04:00 06/08/21 04:52 06/08/21 04:52 06/08/21 04:00 06/08/21 04:52 Oxygen Delivery Method Mechanical Ventilator Weight: 99.8 kg Body Mass Index (BMI) 35.3 Intake & Output: Intake and Output for Last 24 Hours 06/06/21 06/07/21 06/08/21 23:59 23:59 23:59 Intake Total 4497.70 / 4846.70 4229.98 / 4264.46 806.08 / 806.08 Output Total 1375 / 1625 2275 / 2275 650 / 650 Balance 3122.70 / 3221.70 1954.98 / 1989.46 156.08 / 156.08 Lab / Micro Data Result Diagrams: 06/08/21 03:55 06/08/21 03:55 Labs: Laboratory Results - last 24 hr 06/07/21 06:36: POC Glucose > 500 H* 06/07/21 12:45: POC Glucose > 500 H* 06/07/21 17:23: POC Glucose 470 H* 06/07/21 23:35: POC Glucose > 500 H* 06/07/21 23:55: Sodium 144, Potassium 4.1, Chloride 116 H, Carbon Dioxide 19.0 L , Anion Gap 9, BUN 51 H, Creatinine 2.31 H, Estim Creat Clear Calc 27.12, Est GFR (MDRD) Af Amer 30 L, Est GFR (MDRD) Non-Af 24 L, BUN/Creatinine Ratio 22.1 H , Glucose 674 H*, Calcium 7.1 L 06/08/21 03:55: WBC 14.1 H, RBC 3.73 L, Hgb 12.0, Hct 36.5 L, MCV 97.9, MCH 32.2 H, MCHC 32.9 D, RDW Std Deviation 49.2 H, RDW Coeff of Lencho 13.5, Plt Count 105 L, MPV 11.7, Immature Gran % (Auto) 1.100 H, Neut % (Auto) 91.6 H, Lymph % (Auto) 5.2 L, [place] % (Auto) 1.8, Eos % (Auto) 0.2, Baso % (Auto) 0.1, Absolute Neuts (auto) 12.9 H, Absolute Lymphs (auto) 0.74 L, Nucleated RBC % 0, Differential Comment SCANNED 06/08/21 03:55: Sodium 143, Potassium 3.8, Chloride 114 H, Carbon Dioxide 20.0 L , Anion Gap 9, BUN 48 H, Creatinine 2.31 H, Estim Creat Clear Calc 27.12, Est GFR (MDRD) Af Amer 30 L, Est GFR (MDRD) Non-Af 24 L, BUN/Creatinine Ratio 20.8 H , Glucose 628 H*, Calcium 7.0 L, Total Bilirubin 0.30, AST 58 H, ALT 23, Alkaline Phosphatase 85, Total Protein 6.1 L, Albumin 1.5 L, Globulin 4.6 H, Albumin/Globulin Ratio 0.3 L Micro: Microbiology 06/05/21 10:10 Blood Culture (Wb) - Anticubital Right Blood Culture - Preliminary No growth in 48 hours. 06/05/21 09:45 Blood Culture (Wb) - Left Wrist Blood Culture - Preliminary No growth in 48 hours. 06/05/21 14:34 Sputum, Induced/Lukens Gram Stain - Final 06/05/21 14:34 Sputum, Induced/Lukens Respiratory Culture - Preliminary Mixed Culture 06/05/21 10:10 Urine Catheter - Devries Urine Culture - Preliminary Culture exhibits no growth. 06/05/21 10:17 Nasal Secretion SARS-CoV-2 Antigen (Rapid) - Final SARS-CoV-2 (COVID 19) Physical Exam Const Constitutional Narrative: No ventilator dyssynchrony. General Appearance: intubated and patient mechanically ventilated Nutritional Appearance: obese HEENT normocephalic HEENT Narrative: Nonbleeding laceration to left temporal region Mouth: endotracheal tube in place and OG tube in place Eyes PERRL and conjunctivae normal Neck supple General: trachea midline and CVC in place Chest inspection of chest normal Resp Effort and Inspection: tachypneic Auscultation: diminished lung sounds; Negative for rales, rhonchi or wheezes Cardio regular rate, regular rhythm and no murmurs GI normal to inspection, nondistended, normoactive bowel sounds Extremity no clubbing, cyanosis or edema Extremity Narrative: Cool to the touch. Skin Skin Narrative: Forearm hematoma Neuro Sensorium / Orientation: sedated on vent Charges/Coding Procedures Hospitalists Procedures: [id number] Critial Care 1st Hr
[2021-06-08] MEDS: Menthol/Lanolin/Calamine/Znox 113 GM Tube 1 APPLIC TOPICAL ×3 (08:06→23:11)
[2021-06-08 08:49] LABS: Vancomycin, Trough Level 15.9 ug/mL (5.0-15.0)
--- NOTE | 2021-06-08 09:35 | PCM.RX.CS ---
Consult Pharmacy has been consulted to manage selected antiobiotic: Vancomycin Type of Consult: Follow-up Suspected Infection: Pneumonia Prior Doses of Antibiotics Received/Current Regimen: current dose is 1250mg IV q24h Labs: Sodium 143 mmol/L (136-145) 06/08/21 03:55 Potassium 3.8 mmol/L (3.5-5.1) 06/08/21 03:55 Chloride 114 mmol/L (98-107) H 06/08/21 03:55 Carbon Dioxide 20.0 mmol/L (21.0-32.0) L 06/08/21 03:55 Anion Gap 9 (5-15) 06/08/21 03:55 BUN 48 mg/dL (7-18) H 06/08/21 03:55 Creatinine 2.31 mg/dL (0.55-1.02) H 06/08/21 03:55 Est GFR (MDRD) Af Amer 30 mL/min (>60) L 06/08/21 03:55 Est GFR (MDRD) Non-Af 24 mL/min (>60) L 06/08/21 03:55 BUN/Creatinine Ratio 20.8 RATIO (10-20) H 06/08/21 03:55 Glucose 628 mg/dL (74-106) H* 06/08/21 03:55 Vancomycin Trough 15.9 ug/mL (5.0-15.0) H 06/08/21 08:15 Microbiology: Microbiology 06/05/21 14:34 Sputum, Induced/Lukens Gram Stain - Final 06/05/21 14:34 Sputum, Induced/Lukens Respiratory Culture - Preliminary Appears to be normal respiratory tomy. Further studies to follow. 06/05/21 10:10 Blood Culture (Wb) - Anticubital Right Blood Culture - Preliminary No growth in 48 hours. 06/05/21 09:45 Blood Culture (Wb) - Left Wrist Blood Culture - Preliminary No growth in 48 hours. 06/05/21 10:10 Urine Catheter - Devries Urine Culture - Preliminary Culture exhibits no growth. 06/05/21 10:17 Nasal Secretion SARS-CoV-2 Antigen (Rapid) - Final SARS-CoV-2 (COVID 19) Weight used for dosin.4 kg Estimated Creatinine Clearance: 37 ml/min Goal Trough: 15-20 mcg/mL Pharmacy Plan for Drug Dosing: The vanc trough drawn at 08:15 today (drawn 21 hours after the previous dose) was 15.9. This is within goal range but it would have been slightly lower if drawn closer to the 24 hour jason (the previous dose was given 3 hours behind schedule). Nevertheless, due to the patient's SCr rising in the past couple days combined with the fact that the patient has only received 2 doses of vanc up until today, will not increase the dose at this time. Will order another vanc trough in 2 days per protocol and continue to monitor renal function. The patient's CrCl of 37 ml/min was calculated using an adjusted body weight of 74.4kg. Pharmacy Service will continue to monitor and adjust dosing as required. Follow-Up Labs: Trough Vancomycin Labs to be done on [date and time ordered]: 06/10/21 07:30
--- NOTE | 2021-06-08 09:45 | RAD_ITS ---
STUDY: X-RAY CHEST REASON FOR EXAM: Female, 45 years old. Hypoxia TECHNIQUE: Single frontal view of the chest. COMPARISON: 06/06/2021 FINDINGS: There is an endotracheal tube in place terminating 3.6 cm above the khoi. There is a right-sided central venous catheter in place terminating within the expected region of the superior vena cava. There is an enteric tube in place terminating within the expected region of the gastric fundus. There are stable bilateral patchy opacities. Normal size heart. Normal mediastinum and brooke. Normal visualized pulmonary arteries. Normal visualized aortic arch and descending thoracic aorta. Normal visualized thoracic spine. Normal visualized ribs, clavicles, and shoulders. There is no demonstrated abnormality of the visualized soft tissue structures of the upper abdomen. RAD/Chest 1 View (Portable) IMPRESSION: Stable bilateral patchy opacities consistent with multifocal pneumonia. Electronically Signed: Sveta Baugh MD at 10:34 EST Tel , Service support ,
[2021-06-08] MEDS: dexAMETHasone 4 MG/ML Vial 6 MG IV (10:36)
[2021-06-08] MEDS: Enoxaparin 30 MG/0.3 ML Syringe SC ×2 (10:36→23:05)
[2021-06-08] MEDS: Nystatin Powder 15gm Bottle 1 APPLIC TOPICAL ×2 (10:40→23:12)
[2021-06-08] MEDS: Chlorhexidine 15 ML PO ×2 (10:49→23:10)
--- NOTE | 2021-06-08 10:49 | PN.HOSP_ITS ---
Subjective Subjective no further tonic clonic activity, but had another episode where she became tachypneic and dropped her sats Objective Data Objective Data Vital Signs: Vital Signs Temp Pulse Resp BP Pulse Ox 38.0 C H 92 36 H 106/73 92 06/08/21 08:00 06/08/21 10:00 06/08/21 10:00 06/08/21 10:00 06/08/21 10:00 Oxygen Delivery Method Mechanical Ventilator Weight: 100.4 kg Body Mass Index (BMI) 35.3 Intake & Output: Intake and Output for Last 24 Hours 06/06/21 06/07/21 06/08/21 23:59 23:59 23:59 Intake Total 4497.70 / 4846.70 4229.98 / 4369.46 1182.02 / 1182.02 Output Total 1375 / 1625 2275 / 2275 650 / 650 Balance 3122.70 / 3221.70 1954.98 / 2094.46 532.02 / 532.02 Lab / Micro Data Result Diagrams: 06/08/21 03:55 06/08/21 03:55 Labs: Laboratory Results - last 24 hr 06/07/21 06:36: POC Glucose > 500 H* 06/07/21 12:45: POC Glucose > 500 H* 06/07/21 17:23: POC Glucose 470 H* 06/07/21 23:35: POC Glucose > 500 H* 06/07/21 23:55: Sodium 144, Potassium 4.1, Chloride 116 H, Carbon Dioxide 19.0 L , Anion Gap 9, BUN 51 H, Creatinine 2.31 H, Estim Creat Clear Calc 27.12, Est GFR (MDRD) Af Amer 30 L, Est GFR (MDRD) Non-Af 24 L, BUN/Creatinine Ratio 22.1 H , Glucose 674 H*, Calcium 7.1 L 06/08/21 03:55: WBC 14.1 H, RBC 3.73 L, Hgb 12.0, Hct 36.5 L, MCV 97.9, MCH 32.2 H, MCHC 32.9 D, RDW Std Deviation 49.2 H, RDW Coeff of Lencho 13.5, Plt Count 105 L, MPV 11.7, Immature Gran % (Auto) 1.100 H, Neut % (Auto) 91.6 H, Lymph % (Auto) 5.2 L, [place] % (Auto) 1.8, Eos % (Auto) 0.2, Baso % (Auto) 0.1, Absolute Neuts (auto) 12.9 H, Absolute Lymphs (auto) 0.74 L, Nucleated RBC % 0, Differential Comment SCANNED 06/08/21 03:55: Sodium 143, Potassium 3.8, Chloride 114 H, Carbon Dioxide 20.0 L , Anion Gap 9, BUN 48 H, Creatinine 2.31 H, Estim Creat Clear Calc 27.12, Est GFR (MDRD) Af Amer 30 L, Est GFR (MDRD) Non-Af 24 L, BUN/Creatinine Ratio 20.8 H , Glucose 628 H*, Calcium 7.0 L, Total Bilirubin 0.30, AST 58 H, ALT 23, Alkaline Phosphatase 85, Total Protein 6.1 L, Albumin 1.5 L, Globulin 4.6 H, Albumin/Globulin Ratio 0.3 L 06/08/21 08:15: Vancomycin Trough 15.9 H Micro: Microbiology 06/05/21 14:34 Sputum, Induced/Lukens Gram Stain - Final 06/05/21 14:34 Sputum, Induced/Lukens Respiratory Culture - Preliminary Appears to be normal respiratory tomy. Further studies to follow. 06/05/21 10:10 Blood Culture (Wb) - Anticubital Right Blood Culture - Preliminary No growth in 48 hours. 06/05/21 09:45 Blood Culture (Wb) - Left Wrist Blood Culture - Preliminary No growth in 48 hours. 06/05/21 10:10 Urine Catheter - Devries Urine Culture - Preliminary Culture exhibits no growth. 06/05/21 10:17 Nasal Secretion SARS-CoV-2 Antigen (Rapid) - Final SARS-CoV-2 (COVID 19) Radiography Diagnostic Testing: Radiology Impression Chest X-Ray 06/08/21 09:45 IMPRESSION: Stable bilateral patchy opacities consistent with multifocal pneumonia. Electronically Signed: Sveta Baugh MD at 10:34 EST Tel , Service support , Physical Exam Const Constitutional Narrative: intubated and sedated. Eyes Eyes Narrative: miotic pupils. absent corneal reflex. Resp Resp Narrative: coarse breath sounds bilaterally. Cardio regular rate, regular rhythm, S1 normal heart sound and S2 normal heart sound GI normal to inspection, nondistended, normoactive bowel sounds, soft to palpation, non-tender and non-distended Extremity normal to inspection Assessment & Plan Assessment/Plan (1) COVID-19: (2) Respiratory failure: QUALIFIERS: Chronicity: acute Respiratory failure complication: hypoxia Qualified Code(s): J96.01 - Acute respiratory failure with hypoxia (3) Seizure: (4) ANAT (acute kidney injury): (5) Laceration of scalp: QUALIFIERS: Encounter type: sequela Qualified Code(s): S01.01XS - Laceration without foreign body of scalp, sequela (6) Diabetes mellitus with hyperglycemia: QUALIFIERS: Diabetes mellitus type: type 2 Diabetes mellitus correction insulin use: without long wall shear operator use Qualified Code(s): E11.65 - Type 2 diabetes mellitus with hyperglycemia PLAN: 1. Acute hypoxic and hypercapnic respiratory failure * 2/2 COVID 19 pneumonia +/- pneumonia * on vent. FiO2 increased today due to tachypnea * on vanc and cefepime, dc if cultures wind up negative. * pulm on for vent mgmt 2. Acute COVID 19 pneumonia * unvaccinated * unknown time of onset of Sx, but her brother said she was well Thanksgiving, but stopped posting to social media after Thanksgiving (he does not know, but suspects she may have been ill shortly afterwards) * on dexamethasone * ID following 3. Seizures * new onset * no prior seizure disorder according to her brother (he himself had childhood epilepsy) * etiology unclear at present: COVID 19, anoxic encephalopathy, TBI * cannot rule out status epilepticus * had events before cefepime started * started on levetiracetam * EEG unavailable at present at [facility] * MRI when HDS * needs transfer to tertiary facility for further neurologic evaluation: EEG, in person neurology * 06/07: accepted by [facility]. Given loading dose of levetiracetam 1500 and maintenance of 500 BID * 06/08: may have had another non-tonic clonic event. still awaiting on bed at 4. ANAT * ongoing * avoid IVF given resp failure and COVID 19 * avoid nephrotoxic agents * monitor * nephrology following: suspect ATN 5. Encephalopathy * ongoing * anoxic v metabolic v TBI * needs EEG 6. VTE prophylaxis: LMWH 7. DM2 * uncontrolled * previously non-insulin dependent * 06/07:insulin glargine 50 BID started * .5: glargine increase to 70 BID DW pt's brother, Rolando. Updated that pt had witness seizures on 06/07. Accepted and awaiting on transfer to . Greater than 40 minutes of which greater than 50% of the time was discussing with her brother about her condition, treatment, plan. Additionally, time spent discussing her grave prognosis, though acknowledging I dont have adequate testing (i.e., EEG) to adequately assess her. Charges/Coding Visit Charges Inpatient E&M: 63406 Subs Hosp L3
[2021-06-08] MEDS: LORazepam 2 MG/ML Syringe IV (11:33)
[2021-06-08 11:36] LABS: Bedside Glucose > 500 mg/dL (70-110)
[2021-06-08] MEDS: CHLORHEXIDINE GLUC 2% CLOTH 1 EACH TOWELETTE TOPICAL (11:37)
[2021-06-08 16:16] LABS: Bedside Glucose > 500 mg/dL (70-110)
[2021-06-08 18:26] LABS: Bedside Glucose > 500 mg/dL (70-110)
[2021-06-08] MEDS: Insulin Lispro 100 UNIT/ML INSULN.PEN 20 UNIT SC (23:23)
[2021-06-09] VITALS (36 sets, daily range): BP systolic 105–135; BP diastolic 62–108; PULSE 72–92; RESP 20–36; TEMP 37.8–39.3; O2SAT 86–97
[2021-06-09 00:21] LABS: Bedside Glucose 480 mg/dL (70-110)
[2021-06-09] MEDS: Propofol 10MG/Ml 1,000 MG/100 ML Bottle 28.8 MG CONT INF ×8 (00:39→22:25)
[2021-06-09] MEDS: Insulin Lispro 100 UNIT/ML INSULN.PEN 25 UNIT SC (05:28)
[2021-06-09] MEDS: Insulin Lispro 100 UNIT/ML INSULN.PEN 20 UNIT SC ×4 (05:29→23:41)
[2021-06-09] MEDS: Menthol/Lanolin/Calamine/Znox 113 GM Tube 1 APPLIC TOPICAL ×3 (05:33→22:13)
[2021-06-09 05:52] LABS: Absolute Lymphocyte Count 0.42 X10^3/uL (0.83-4.51); Absolute Neutrophil Count 10.3 X10^3/uL (2.0-7.7); Basophil# 0.01 X10^3/uL; Basophil% 0.1 % (0-1); Hematocrit 35.5 % (37-47); Hemoglobin 11.2 g/dL (12.0-15.0); Lymphocyte # 0.42 X10^3/ul (0.83-4.51); Lymphocyte % 3.8 % (19-41); Mean Corp Hgb Conc 31.5 g/dL (32-36); Mean Corpuscular Hgb 31.2 pg (27.0-32.0); Mean Corpuscular Volume 98.9 fL (81-99); Mean Platelet Vol. 11.9 fl (6.2-12.0); Monocyte# 0.22 X10^3/uL; NRBC Flagged by Analyzer 0 % (0-5); Neutrophil # 10.25 X10^3/uL (2.7-7.7); Neutrophil % 92.7 % (47-70); POSITIVE COUNT YES; POSITIVE DIFFERENTIAL YES; Platelet Count 78 K/mm3 (150-450); RBC Distribution Width CV 13.5 % (11.6-14.6); RBC Distribution Width SD 48.9 fl (35.1-43.9); Red Blood Count 3.59 M/mm3 (4.2-5.4); White Blood Count 11.1 K/mm3 (4.4-11.0)
[2021-06-09 06:02] LABS: Differential Indicated SCAN CRITERIA MET
[2021-06-09 06:17] LABS: ALB/GLOB Ratio 0.3 RATIO (0.9-2.4); AST(SGOT) 53 U/L (15-37); Alanine Aminotransfer ALT/SGPT 21 U/L (13-56); Albumin, Serum 1.5 g/dL (3.2-5.0); Alkaline Phosphatase 100 U/L (45-117); Anion Gap 5 (5-15); BUN 40 mg/dL (7-18); BUN/Creat Ratio 22.1 RATIO (10-20); Calcium,Total 7.9 mg/dL (8.5-10.1); Chloride 119 mmol/L (98-107); Creatinine, Serum 1.81 mg/dL (0.55-1.02); EST Glomerular Filtration Rate 32 mL/min (>60); Est Glom Filt Rate - Afr Amer 39 mL/min (>60); Estimated Creatinine Clearance 34.61 ml/min; Globulin 4.6 g/dL (2.2-4.2); Glucose 657 mg/dL (74-106); Potassium 4.5 mmol/L (3.5-5.1); Protein, Total 6.1 g/dL (6.4-8.2); Sodium Level 148 mmol/L (136-145)
[2021-06-09 06:31] LABS: Bedside Glucose 454 mg/dL (70-110)
[2021-06-09 07:07] LABS: Platelet Estimate MOD DEC (ADEQ)
[2021-06-09] MEDS: Vital AF 1.2 Cal Liquid 1,000 ML 70 ML GT ×2 (08:42→22:15)
--- NOTE | 2021-06-09 09:49 | CASEMGMT ---
Addendum entered by Mercedes Younger 06/09/21 10:00: SPENCER spoke w/Julia again at [facility], further updates given. SPENCER will continue to follow. LANA Phelan Original Note: SW participated in ICU rounds this morning. SPENCER called Julia Carty with [facility], message left updating her on pt's status. LANA Phelan
[2021-06-09] MEDS: TITRATION PARAMETER CHANGE 1 EACH IV ×2 (10:08)
[2021-06-09] MEDS: Senna/Docusate Sodium 1 Tablet 2 TABLET GT ×2 (10:09→22:13)
[2021-06-09] MEDS: Polyethylene Glycol 3350 17 GM PACKET GT ×2 (10:09→22:12)
[2021-06-09] MEDS: dexAMETHasone 4 MG/ML Vial 6 MG IV (10:09)
[2021-06-09] MEDS: Nystatin Powder 15gm Bottle 1 APPLIC TOPICAL ×2 (10:13→22:12)
[2021-06-09] MEDS: Chlorhexidine 15 ML PO ×2 (10:34→22:13)
[2021-06-09] MEDS: Insulin Lispro 100 UNIT/ML INSULN.PEN 30 UNIT SC (10:36)
[2021-06-09 10:56] LABS: Bedside Glucose 493 mg/dL (70-110)
--- NOTE | 2021-06-09 11:49 | PN.RENAL_ITS ---
Subjective Subjective remains intubated. Cr is stable. urine output is good. low dose of levophed. FiO2 is down. overall slightly better than 2 days ago. still waiting on transfer. on [facility]. dosing needs to be adjusted depending on renal function which is changing a lot. Objective Data Objective Data Vital Signs: Vital Signs Temp Pulse Resp BP Pulse Ox 100.1 F H 78 29 H 135/84 H 95 06/09/21 08:00 06/09/21 11:00 06/09/21 11:00 06/09/21 09:00 06/09/21 11:00 Oxygen Delivery Method Mechanical Ventilator Weight: 99.9 kg Body Mass Index (BMI) 35.3 Intake & Output: Intake and Output for Last 24 Hours 06/07/21 06/08/21 06/09/21 23:59 23:59 23:59 Intake Total 4229.98 / 4369.46 4078.21 / 4116.41 1944.42 / 1944.42 Output Total 2275 / 2275 2800 / 2800 1650 / 1650 Balance 1954.98 / 2094.46 1278.21 / 1316.41 294.42 / 294.42 Lab / Micro Data Result Diagrams: 06/09/21 05:40 06/09/21 05:40 Labs: Laboratory Results - last 24 hr 06/08/21 11:34: POC Glucose > 500 H* 06/08/21 17:48: POC Glucose > 500 H* 06/08/21 22:56: POC Glucose 480 H* 06/09/21 05:20: POC Glucose 454 H* 06/09/21 05:40: WBC 11.1 H, RBC 3.59 L, Hgb 11.2 L, Hct 35.5 L, MCV 98.9, MCH 31.2, MCHC 31.5 L, RDW Std Deviation 48.9 H, RDW Coeff of Lencho 13.5, Plt Count 78 L, MPV 11.9, Immature Gran % (Auto) 1.400 H, Neut % (Auto) 92.7 H, Lymph % (Auto) 3.8 L, Fisher % (Auto) 2.0, Eos % (Auto) 0.0, Baso % (Auto) 0.1, Absolute Neuts (auto) 10.3 H, Absolute Lymphs (auto) 0.42 L, Nucleated RBC % 0, Platelet Estimate MOD DEC 06/09/21 05:40: Sodium 148 H, Potassium 4.5, Chloride 119 H, Carbon Dioxide 24.0, Anion Gap 5, BUN 40 H, Creatinine 1.81 H, Estim Creat Clear Calc 34.61, Est GFR (MDRD) Af Amer 39 L, Est GFR (MDRD) Non-Af 32 L, BUN/Creatinine Ratio 22.1 H, Glucose 657 H*, Calcium 7.9 L, Total Bilirubin 0.40, AST 53 H, ALT 21, Alkaline Phosphatase 100, C-React Prot Ext Range 120.00 H, Total Protein 6.1 L, Albumin 1.5 L, Globulin 4.6 H, Albumin/Globulin Ratio 0.3 L 06/09/21 10:04: POC Glucose 493 H* Micro: Microbiology 06/05/21 14:34 Sputum, Induced/Lukens Gram Stain - Final 06/05/21 14:34 Sputum, Induced/Lukens Respiratory Culture - Final Streptococcus group F 06/05/21 10:10 Urine Catheter - Devries Urine Culture - Preliminary Culture exhibits no growth. 06/05/21 10:10 Blood Culture (Wb) - Anticubital Right Blood Culture - Preliminary No growth in 48 hours. 06/05/21 09:45 Blood Culture (Wb) - Left Wrist Blood Culture - Preliminary No growth in 48 hours. 06/05/21 10:17 Nasal Secretion SARS-CoV-2 Antigen (Rapid) - Final SARS-CoV-2 (COVID 19) Physical Exam Narrative minimal exam due to covid. Assessment & Plan Assessment/Plan (1) ANAT (acute kidney injury): PLAN: due to ATN. in recovery mode. urine output is good. cr better. electrolytes are ok. no indications for [employer]
[2021-06-09] MEDS: Insulin Lispro 100 UNIT/ML INSULN.PEN SC ×3 (12:38→23:42)
--- NOTE | 2021-06-09 12:39 | PCM.PN.INT ---
Assessment & Plan Assessment/Plan (1) Respiratory failure: QUALIFIERS: Chronicity: acute Respiratory failure complication: hypoxia Qualified Code(s): J96.01 - Acute respiratory failure with hypoxia (2) COVID-19: PLAN: RECOMMENDATIONS: 1. Continue patient on assist control mode mechanical ventilation and wean FiO2/PEEP for saturations greater than 90%. 2. Continue antimicrobials pending finalized culture results. 3. Continue Decadron as ordered to complete 10 days of therapy. 4. Increase Lantus dosing and continue high intensity sliding scale coverage. 5. Continue fentanyl and propofol for sedation. 6. Continue Keppra as ordered along with as needed Ativan and seizure precautions. 7. Continue tube feeds as tolerated. 8. Aggressive insulin for hyperglycemia IMPRESSIONS: 1. Acute combined respiratory failure secondary to COVID-19 pneumonia The patient presented to the hospital with altered mentation and hypoxemia and was intubated in the emergency department, after she failed to respond to noninvasive positive pressure ventilatory support. Further work-up revealed that the patient was positive for COVID-19 pneumonia. The patient will be continued on Decadron to complete 10 days of therapy. Renal function is improving. Defer to infectious disease on initiation of baricitinib given improved renal function. Continue patient on assist control mode of mechanical ventilation and wean FiO2/PEEP for saturations greater than 90%. Continue Lovenox as ordered. Continue empiric antimicrobials. Continue tube feeds as tolerated. 2. Acute kidney injury Improving. Most likely prerenal in etiology and related to acute presentation. We will continue to monitor urine output for now. No current indication for renal replacement therapy. Nephrology is currently following to assist with medical management. 3. Encephalopathy/new onset seizures Appears secondary to acute presentation with COVID-19 pneumonia with associated hypercapnia. On June 06, the patient developed new onset seizure activity. She was placed on as needed Ativan and seizure precautions. Propofol will be preferentially utilized for sedation. Tele-neurology consultation was obtained and the patient was started on Keppra. Unable to perform EEG at the current time. Awaiting transfer to a tertiary center 4. Hyperglycemia The patient has known diabetes mellitus, which will be exacerbated by the use of Decadron. Plan to increase the patient's basal insulin regimen today and continue high intensity sliding scale coverage. 5. Obesity/hyperlipidemia/diabetes mellitus/hypertension Complicates care, management, recovery and prognosis. Hold home antihypertensives. TIME: 40 minutes of critical care time, independent of procedures, was spent addressing the patient's acute combined respiratory failure secondary to COVID-19 pneumonia, acute kidney injury, encephalopathy, new onset seizures, hyperglycemia, review of all data and collaboration with the care team. Subjective Subjective Patient did okay overnight. Patient has tolerated tube feeds, but is still requiring Levophed to maintain saturations. Blood sugar severely elevated overnight. Still awaiting bed at [facility]. Check with environmental studies department chair and EEG is still not available. Patient has had some episodes of tachypnea, hypertension and tachycardia that are empirically being treated as seizure activity with Ativan. Patient also has been kept a deeper sedation. Objective Data Objective Data Vital Signs: Vital Signs Temp Pulse Resp BP Pulse Ox 38.0 C H 74 31 H 111/68 90 06/09/21 12:00 06/09/21 12:00 06/09/21 12:00 06/09/21 12:00 06/09/21 12:00 Oxygen Delivery Method Mechanical Ventilator Weight: 99.9 kg Body Mass Index (BMI) 35.3 Intake & Output: Intake and Output for Last 24 Hours 06/07/21 06/08/21 06/09/21 23:59 23:59 23:59 Intake Total 4229.98 / 4369.46 4078.21 / 4116.41 2113.50 / 2113.50 Output Total 2275 / 2275 2800 / 2800 1650 / 1650 Balance 1954.98 / 2094.46 1278.21 / 1316.41 463.50 / 463.50 Lab / Micro Data Result Diagrams: 06/09/21 05:40 06/09/21 05:40 Labs: Laboratory Results - last 24 hr 06/08/21 11:34: POC Glucose > 500 H* 06/08/21 17:48: POC Glucose > 500 H* 06/08/21 22:56: POC Glucose 480 H* 06/09/21 05:20: POC Glucose 454 H* 06/09/21 05:40: WBC 11.1 H, RBC 3.59 L, Hgb 11.2 L, Hct 35.5 L, MCV 98.9, MCH 31.2, MCHC 31.5 L, RDW Std Deviation 48.9 H, RDW Coeff of Lencho 13.5, Plt Count 78 L, MPV 11.9, Immature Gran % (Auto) 1.400 H, Neut % (Auto) 92.7 H, Lymph % (Auto) 3.8 L, [place] % (Auto) 2.0, Eos % (Auto) 0.0, Baso % (Auto) 0.1, Absolute Neuts (auto) 10.3 H, Absolute Lymphs (auto) 0.42 L, Nucleated RBC % 0, Platelet Estimate MOD 06/09/21 05:40: Sodium 148 H, Potassium 4.5, Chloride 119 H, Carbon Dioxide 24.0, Anion Gap 5, BUN 40 H, Creatinine 1.81 H, Estim Creat Clear Calc 34.61, Est GFR (MDRD) Af Amer 39 L, Est GFR (MDRD) Non-Af 32 L, BUN/Creatinine Ratio 22.1 H, Glucose 657 H*, Calcium 7.9 L, Total Bilirubin 0.40, AST 53 H, ALT 21, Alkaline Phosphatase 100, C-React Prot Ext Range 120.00 H, Total Protein 6.1 L, Albumin 1.5 L, Globulin 4.6 H, Albumin/Globulin Ratio 0.3 L 06/09/21 10:04: POC Glucose 493 H* Micro: Microbiology 06/05/21 14:34 Sputum, Induced/Lukens Gram Stain - Final 06/05/21 14:34 Sputum, Induced/Lukens Respiratory Culture - Final Streptococcus group F 06/05/21 10:10 Urine Catheter - Devries Urine Culture - Preliminary Culture exhibits no growth. 06/05/21 10:10 Blood Culture (Wb) - Anticubital Right Blood Culture - Preliminary No growth in 48 hours. 06/05/21 09:45 Blood Culture (Wb) - Left Wrist Blood Culture - Preliminary No growth in 48 hours. 06/05/21 10:17 Nasal Secretion SARS-CoV-2 Antigen (Rapid) - Final SARS-CoV-2 (COVID 19) Physical Exam Const Constitutional Narrative: No ventilator dyssynchrony. RASS -4 General Appearance: intubated and patient mechanically ventilated Nutritional Appearance: obese HEENT normocephalic HEENT Narrative: Nonbleeding laceration to left temporal region Mouth: endotracheal tube in place and OG tube in place Eyes PERRL and conjunctivae normal Neck supple General: trachea midline and CVC in place Chest inspection of chest normal Resp Effort and Inspection: tachypneic Auscultation: diminished lung sounds; Negative for rales, rhonchi or wheezes Cardio regular rate, regular rhythm and no murmurs GI normal to inspection, nondistended, normoactive bowel sounds Extremity Extremity Narrative: Cool to the touch. Some cyanosis of the toes General Extremity: cyanosis and edema bilateral (2+) lower extremity; Negative for clubbing Skin Skin Narrative: Forearm hematoma Neuro Sensorium / Orientation: sedated on vent Charges/Coding Procedures Hospitalists Procedures: 25427 Critial Care 1st Hr
[2021-06-09 13:26] LABS: Bedside Glucose 363 mg/dL (70-110)
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
--- NOTE | 2021-06-09 14:07 | PN.HOSP_ITS ---
Subjective Subjective Cyanotic left toes noted today. No further tonic clonic activity. Objective Data Objective Data Vital Signs: Vital Signs Temp Pulse Resp BP Pulse Ox 38.0 C H 81 31 H 113/70 91 06/09/21 12:00 06/09/21 13:00 06/09/21 13:00 06/09/21 13:00 06/09/21 13:00 Oxygen Delivery Method Mechanical Ventilator Weight: 99.9 kg Body Mass Index (BMI) 35.3 Intake & Output: Intake and Output for Last 24 Hours 06/07/21 06/08/21 06/09/21 23:59 23:59 23:59 Intake Total 4229.98 / 4369.46 4078.21 / 4116.41 2272.80 / 2272.80 Output Total 2275 / 2275 2800 / 2800 1850 / 1850 Balance 1954.98 / 2094.46 1278.21 / 1316.41 422.80 / 422.80 Lab / Micro Data Result Diagrams: 06/09/21 05:40 06/09/21 05:40 Labs: Laboratory Results - last 24 hr 06/08/21 11:34: POC Glucose > 500 H* 06/08/21 17:48: POC Glucose > 500 H* 06/08/21 22:56: POC Glucose 480 H* 06/09/21 05:20: POC Glucose 454 H* 06/09/21 05:40: WBC 11.1 H, RBC 3.59 L, Hgb 11.2 L, Hct 35.5 L, MCV 98.9, MCH 31.2, MCHC 31.5 L, RDW Std Deviation 48.9 H, RDW Coeff of Lencho 13.5, Plt Count 78 L, MPV 11.9, Immature Gran % (Auto) 1.400 H, Neut % (Auto) 92.7 H, Lymph % (Auto) 3.8 L, [place] % (Auto) 2.0, Eos % (Auto) 0.0, Baso % (Auto) 0.1, Absolute Neuts (auto) 10.3 H, Absolute Lymphs (auto) 0.42 L, Nucleated RBC % 0, Platelet Estimate MOD DEC 06/09/21 05:40: Sodium 148 H, Potassium 4.5, Chloride 119 H, Carbon Dioxide 24.0, Anion Gap 5, BUN 40 H, Creatinine 1.81 H, Estim Creat Clear Calc 34.61, Est GFR (MDRD) Af Amer 39 L, Est GFR (MDRD) Non-Af 32 L, BUN/Creatinine Ratio 22.1 H, Glucose 657 H*, Calcium 7.9 L, Total Bilirubin 0.40, AST 53 H, ALT 21, Alkaline Phosphatase 100, C-React Prot Ext Range 120.00 H, Total Protein 6.1 L, Albumin 1.5 L, Globulin 4.6 H, Albumin/Globulin Ratio 0.3 L 06/09/21 10:04: POC Glucose 493 H* 06/09/21 12:36: POC Glucose 363 H Micro: Microbiology 06/05/21 14:34 Sputum, Induced/Lukens Gram Stain - Final 06/05/21 14:34 Sputum, Induced/Lukens Respiratory Culture - Final Streptococcus group F 06/05/21 10:10 Urine Catheter - Devries Urine Culture - Preliminary Culture exhibits no growth. 06/05/21 10:10 Blood Culture (Wb) - Anticubital Right Blood Culture - Preliminary No growth in 48 hours. 06/05/21 09:45 Blood Culture (Wb) - Left Wrist Blood Culture - Preliminary No growth in 48 hours. 06/05/21 10:17 Nasal Secretion SARS-CoV-2 Antigen (Rapid) - Final SARS-CoV-2 (COVID 19) Physical Exam Const Constitutional Narrative: intubated sedated HEENT head/scalp atraumatic and moist oral mucous membranes Head and Scalp: normocephalic Resp normal respiratory effort, no retractions, no use of accessory muscles and clear to auscultation bilaterally Cardio regular rate, regular rhythm, S1 normal heart sound and S2 normal heart sound GI normal to inspection, nondistended, normoactive bowel sounds, soft to palpation, non-tender and non-distended Extremity Extremity Narrative: edema. Skin no rashes or lesions noted Skin Narrative: cyanosis left toes Neuro Neuro Narrative: no clonus. Assessment & Plan Assessment/Plan (1) COVID-19: (2) Respiratory failure: QUALIFIERS: Chronicity: acute Respiratory failure complication: hypoxia Qualified Code(s): J96.01 - Acute respiratory failure with hypoxia (3) Seizure: (4) ANAT (acute kidney injury): (5) Laceration of scalp: QUALIFIERS: Encounter type: sequela Qualified Code(s): S01.01XS - Laceration without foreign body of scalp, sequela (6) Diabetes mellitus with hyperglycemia: QUALIFIERS: Diabetes mellitus type: type 2 Diabetes mellitus group home insulin use: without terminal press operator use Qualified Code(s): E11.65 - Type 2 diabetes mellitus with hyperglycemia PLAN: 1. Acute hypoxic and hypercapnic respiratory failure * 2/2 COVID 19 pneumonia +/- pneumonia * on vent. FiO2 increased today due to tachypnea * on vanc and cefepime, dc if cultures wind up negative. * pulm on for vent mgmt 2. Acute COVID 19 pneumonia * unvaccinated * unknown time of onset of Sx, but her brother said she was well Thanksgiving, but stopped posting to social media after Thanksgiving (he does not know, but suspects she may have been ill shortly afterwards) * on dexamethasone * ID following 3. Seizures * new onset * no prior seizure disorder according to her brother (he himself had childhood epilepsy) * etiology unclear at present: COVID 19, anoxic encephalopathy, TBI * cannot rule out status epilepticus * had events before cefepime started * started on levetiracetam * EEG unavailable at present at [facility] * MRI when HDS * needs transfer to tertiary facility for further neurologic evaluation: EEG, in person neurology * 06/07: accepted by [facility]. Given loading dose of levetiracetam 1500 and maintenance of 500 BID * 06/08: may have had another non-tonic clonic event. still awaiting on bed at * 06/09: no new seizure event. since relatively stable, will order MRI Brain 4. ANAT * ongoing * avoid IVF given resp failure and COVID 19 * avoid nephrotoxic agents * monitor * nephrology following: suspect ATN 5. Encephalopathy * ongoing * anoxic v metabolic v TBI * needs EEG 6. VTE prophylaxis: LMWH 7. DM2 * uncontrolled * previously non-insulin dependent * 06/07:insulin glargine 50 BID started * 12.5: glargine increase to 70 BID * 06/09: glargine increased to 90 BID 8. Cyanotic left toes * 2/2 COVID 19 v norepinephrine * norepi dc's Charges/Coding Visit Charges Inpatient E&M: 97391 Subs Hosp L3
[2021-06-09] MEDS: Acetaminophen 650 MG/20 ML UDC GT (14:22)
[2021-06-09] MEDS: CHLORHEXIDINE GLUC 2% CLOTH 1 EACH TOWELETTE TOPICAL (15:53)
[2021-06-09 17:30] LABS: Bedside Glucose 308 mg/dL (70-110)
[2021-06-10] VITALS (34 sets, daily range): BP systolic 97–119; BP diastolic 55–79; PULSE 71–95; RESP 26–38; TEMP 37.5–38.6; O2SAT 88–97
[2021-06-10 00:05] LABS: Bedside Glucose 250 mg/dL (70-110)
[2021-06-10] MEDS: Propofol 10MG/Ml 1,000 MG/100 ML Bottle 28.8 MG CONT INF ×3 (01:54→06:26)
[2021-06-10 03:19] LABS: Absolute Neutrophil Count 7.9 X10^3/uL (2.0-7.7); Basophil# 0.01 X10^3/uL; Basophil% 0.1 % (0-1); Eosinophil# 0.02 X10^3/uL; Eosinophils% 0.2 % (0-5); Hematocrit 33.1 % (37-47); Hemoglobin 10.2 g/dL (12.0-15.0); Lymphocyte % 6.8 % (19-41); Mean Corp Hgb Conc 30.8 g/dL (32-36); Mean Corpuscular Hgb 30.6 pg (27.0-32.0); Mean Corpuscular Volume 99.4 fL (81-99); Mean Platelet Vol. 13.3 fl (6.2-12.0); Monocyte# 0.18 X10^3/uL; Monocyte% 2.1 % (0-10); NRBC Flagged by Analyzer 0 % (0-5); Neutrophil # 7.87 X10^3/uL (2.7-7.7); Neutrophil % 89.7 % (47-70); POSITIVE COUNT YES; POSITIVE DIFFERENTIAL YES; POSITIVE MORPHOLOGY YES; Platelet Count 86 K/mm3 (150-450); RBC Distribution Width CV 13.5 % (11.6-14.6); RBC Distribution Width SD 49.2 fl (35.1-43.9); Red Blood Count 3.33 M/mm3 (4.2-5.4); White Blood Count 8.8 K/mm3 (4.4-11.0)
[2021-06-10 03:21] LABS: Differential Indicated SCAN CRITERIA MET
[2021-06-10 03:38] LABS: Differential Comment SCANNED
[2021-06-10 04:27] LABS: Anion Gap 6 (5-15); BUN 45 mg/dL (7-18); BUN/Creat Ratio 24.2 RATIO (10-20); Chloride 121 mmol/L (98-107); Creatinine, Serum 1.86 mg/dL (0.55-1.02); EST Glomerular Filtration Rate 31 mL/min (>60); Est Glom Filt Rate - Afr Amer 38 mL/min (>60); Estimated Creatinine Clearance 33.68 ml/min; Glucose 275 mg/dL (74-106); Potassium 4.4 mmol/L (3.5-5.1); Sodium Level 152 mmol/L (136-145)
[2021-06-10] MEDS: CHLORHEXIDINE GLUC 2% CLOTH 1 EACH TOWELETTE TOPICAL (05:12)
[2021-06-10] MEDS: Insulin Lispro 100 UNIT/ML INSULN.PEN SC ×3 (05:15→16:55)
[2021-06-10] MEDS: Insulin Lispro 100 UNIT/ML INSULN.PEN 20 UNIT SC ×3 (05:16→16:56)
[2021-06-10] MEDS: Menthol/Lanolin/Calamine/Znox 113 GM Tube 1 APPLIC TOPICAL ×3 (05:18→20:45)
[2021-06-10 05:26] LABS: Bedside Glucose 206 mg/dL (70-110)
[2021-06-10] MEDS: TITRATION PARAMETER CHANGE 1 EACH IV (06:58)
--- NOTE | 2021-06-10 07:13 | PN.CC_ITS ---
Assessment & Plan Assessment/Plan (1) Respiratory failure: QUALIFIERS: Chronicity: acute Respiratory failure complication: hypoxia Qualified Code(s): J96.01 - Acute respiratory failure with hypoxia (2) COVID-19: PLAN: RECOMMENDATIONS: 1. Continue patient on assist control mode mechanical ventilation and wean FiO2/PEEP for saturations greater than 90%. 2. Continue antimicrobials pending finalized culture results. 3. Continue Decadron as ordered to complete 10 days of therapy. 4. Increase Lantus dosing and continue high intensity sliding scale coverage. 5. Continue fentanyl and propofol for sedation. 6. Continue Keppra as ordered along with as needed Ativan and seizure precautions. 7. Continue tube feeds as tolerated. Increase free water 8. Aggressive insulin for hyperglycemia IMPRESSIONS: 1. Acute combined respiratory failure secondary to COVID-19 pneumonia The patient presented to the hospital with altered mentation and hypoxemia and was intubated in the emergency department, after she failed to respond to noninvasive positive pressure ventilatory support. Further work-up revealed that the patient was positive for COVID-19 pneumonia. The patient will be continued on Decadron to complete 10 days of therapy. Renal function is stable. Defer to infectious disease on initiation of baricitinib given improved renal function. Continue patient on assist control mode of mechanical ventilation and wean FiO2/PEEP for saturations greater than 90%. Continue Lovenox as ordered. Continue empiric antimicrobials. Continue tube feeds as tolerated. 2. Acute kidney injury/hyperchloremia/hypernatremia Improving. Most likely prerenal in etiology and related to acute presentation. We will continue to monitor urine output for now. No current indication for renal replacement therapy. Nephrology is currently following to assist with medical management. Clinical suspicion for elevated chloride and sodium secondary to free water losses associated with hyperglycemia. 3. Encephalopathy/new onset seizures Appears secondary to acute presentation with COVID-19 pneumonia with associated hypercapnia. On June 06, the patient developed new onset seizure activity. She was placed on as needed Ativan and seizure precautions. Propofol will be preferentially utilized for sedation. Tele-neurology consultation was obtained and the patient was started on Keppra. Unable to perform EEG at the current time. Lower RASS goal for prevention. Awaiting transfer to a tertiary center 4. Hyperglycemia The patient has known diabetes mellitus, which will be exacerbated by the use of Decadron. Plan to increase the patient's basal insulin regimen today and continue high intensity sliding scale coverage. 5. Obesity/hyperlipidemia/diabetes mellitus/hypertension Complicates care, management, recovery and prognosis. Hold home antihypertensives. TIME: 35 minutes of critical care time, independent of procedures, was spent addressing the patient's acute combined respiratory failure secondary to COVID- 19 pneumonia, acute kidney injury, encephalopathy, new onset seizures, hyperglycemia, review of all data and collaboration with the care team. Subjective Subjective Patient continues to await transfer to [facility]. Patient has been able to be taken off of Levophed. Patient did have a questionable seizure around 7:30 PM. Patient continues to be more sedated. Blood sugars have been better controlled with aggressive insulin therapy. Objective Data Objective Data Vital Signs: Vital Signs Temp Pulse Resp BP Pulse Ox 37.5 C H 74 28 H 112/71 91 06/10/21 07:00 06/10/21 07:00 06/10/21 07:00 06/10/21 07:00 06/10/21 07:00 Oxygen Delivery Method Mechanical Ventilator Weight: 103.2 kg Body Mass Index (BMI) 35.3 Intake & Output: Intake and Output for Last 24 Hours 06/08/21 06/09/21 06/10/21 23:59 23:59 23:59 Intake Total 4078.21 / 4116.41 4019.13 / 4379.93 1654.38 / 1654.38 Output Total 2800 / 2800 2150 / 2450 650 / 650 Balance 1278.21 / 1316.41 1869.13 / 1929.93 1004.38 / 1004.38 Lab / Micro Data Result Diagrams: 06/10/21 03:00 06/10/21 03:00 Labs: Laboratory Results - last 24 hr 06/09/21 10:04: POC Glucose 493 H* 06/09/21 12:36: POC Glucose 363 H 06/09/21 17:21: POC Glucose 308 H 06/09/21 23:38: POC Glucose 250 H 06/10/21 03:00: WBC 8.8, RBC 3.33 L, Hgb 10.2 L, Hct 33.1 L, MCV 99.4 H, MCH 30.6, MCHC 30.8 L, RDW Std Deviation 49.2 H, RDW Coeff of Lencho 13.5, Plt Count 86 L, MPV 13.3 H, Immature Gran % (Auto) 1.100 H, Neut % (Auto) 89.7 H, Lymph % (Auto) 6.8 L, [place] % (Auto) 2.1, Eos % (Auto) 0.2, Baso % (Auto) 0.1, Absolute Neuts (auto) 7.9 H, Absolute Lymphs (auto) 0.60 L, Nucleated RBC % 0, Differential Comment SCANNED 06/10/21 03:00: Sodium 152 H, Potassium 4.4, Chloride 121 H, Carbon Dioxide 25.0, Anion Gap 6, BUN 45 H, Creatinine 1.86 H, Estim Creat Clear Calc 33.68, Est GFR (MDRD) Af Amer 38 L, Est GFR (MDRD) Non-Af 31 L, BUN/Creatinine Ratio 24.2 H, Glucose 275 H, Calcium 8.0 L 06/10/21 05:15: POC Glucose 206 H Micro: Microbiology 06/05/21 10:10 Urine Catheter - Devries Urine Culture - Final Mixed Gram Positive Organisms Yeast, not Sheree albicans 06/05/21 14:34 Sputum, Induced/Lukens Gram Stain - Final 06/05/21 14:34 Sputum, Induced/Lukens Respiratory Culture - Final Streptococcus group F 06/05/21 10:10 Blood Culture (Wb) - Anticubital Right Blood Culture - Prel iminary No growth in 48 hours. 06/05/21 09:45 Blood Culture (Wb) - Left Wrist Blood Culture - Preliminary No growth in 48 hours. 06/05/21 10:17 Nasal Secretion SARS-CoV-2 Antigen (Rapid) - Final SARS-CoV-2 (COVID 19) Physical Exam Const Constitutional Narrative: No ventilator dyssynchrony. RASS -4 General Appearance: intubated and patient mechanically ventilated Nutritional Appearance: obese HEENT normocephalic HEENT Narrative: Nonbleeding laceration to left temporal region Mouth: endotracheal tube in place and OG tube in place Eyes PERRL and conjunctivae normal Neck supple General: trachea midline and CVC in place Chest inspection of chest normal Resp Effort and Inspection: tachypneic Auscultation: diminished lung sounds; Negative for rales, rhonchi or wheezes Cardio regular rate, regular rhythm and no murmurs GI normal to inspection, nondistended, normoactive bowel sounds Extremity Extremity Narrative: Cool to the touch. Some cyanosis of the toes. Still with pedal pulse General Extremity: cyanosis and edema bilateral (2+) lower extremity; Negative for clubbing Skin Skin Narrative: Forearm hematoma Neuro Sensorium / Orientation: sedated on vent Charges/Coding Procedures Hospitalists Procedures: [id number] Critial Care 1st Hr
[2021-06-10] MEDS: Nystatin Powder 15gm Bottle 1 APPLIC TOPICAL ×2 (08:30→20:45)
[2021-06-10] MEDS: Chlorhexidine 15 ML PO ×2 (08:42→20:44)
[2021-06-10] MEDS: dexAMETHasone 4 MG/ML Vial 6 MG IV (08:42)
[2021-06-10] MEDS: Propofol 10MG/Ml 1,000 MG/100 ML Bottle 31 MG CONT INF ×6 (09:30→23:36)
--- NOTE | 2021-06-10 11:54 | PN.HOSP_ITS ---
Subjective Subjective Possible seizure last night. Still on vent. Objective Data Objective Data Vital Signs: Vital Signs Temp Pulse Resp BP Pulse Ox 37.9 C H 73 34 H 103/66 90 06/10/21 11:00 06/10/21 11:00 06/10/21 11:00 06/10/21 11:00 06/10/21 10:59 Oxygen Delivery Method Mechanical Ventilator Weight: 103.2 kg Body Mass Index (BMI) 35.3 Intake & Output: Intake and Output for Last 24 Hours 06/08/21 06/09/21 06/10/21 23:59 23:59 23:59 Intake Total 4078.21 / 4116.41 4019.13 / 4379.93 2151.38 / 2151.38 Output Total 2800 / 2800 2150 / 2450 875 / 875 Balance 1278.21 / 1316.41 1869.13 / 1929.93 1276.38 / 1276.38 Lab / Micro Data Result Diagrams: 06/10/21 03:00 06/10/21 03:00 Labs: Laboratory Results - last 24 hr 06/09/21 12:36: POC Glucose 363 H 06/09/21 17:21: POC Glucose 308 H 06/09/21 23:38: POC Glucose 250 H 06/10/21 03:00: WBC 8.8, RBC 3.33 L, Hgb 10.2 L, Hct 33.1 L, MCV 99.4 H, MCH 30.6, MCHC 30.8 L, RDW Std Deviation 49.2 H, RDW Coeff of Lencho 13.5, Plt Count 86 L, MPV 13.3 H, Immature Gran % (Auto) 1.100 H, Neut % (Auto) 89.7 H, Lymph % (Auto) 6.8 L, [place] % (Auto) 2.1, Eos % (Auto) 0.2, Baso % (Auto) 0.1, Absolute Neuts (auto) 7.9 H, Absolute Lymphs (auto) 0.60 L, Nucleated RBC % 0, Differential Comment SCANNED 06/10/21 03:00: Sodium 152 H, Potassium 4.4, Chloride 121 H, Carbon Dioxide 25.0, Anion Gap 6, BUN 45 H, Creatinine 1.86 H, Estim Creat Clear Calc 33.68, Est GFR (MDRD) Af Amer 38 L, Est GFR (MDRD) Non-Af 31 L, BUN/Creatinine Ratio 24.2 H, Glucose 275 H, Calcium 8.0 L 06/10/21 05:15: POC Glucose 206 H Micro: Microbiology 06/05/21 10:10 Urine Catheter - Devries Urine Culture - Final Mixed Gram Positive Organisms Yeast, not Sheree albicans 06/05/21 14:34 Sputum, Induced/Lukens Gram Stain - Final 06/05/21 14:34 Sputum, Induced/Lukens Respiratory Culture - Final Streptococcus group F 06/05/21 10:10 Blood Culture (Wb) - Anticubital Right Blood Culture - Preliminary No growth in 48 hours. 06/05/21 09:45 Blood Culture (Wb) - Left Wrist Blood Culture - Preliminary No growth in 48 hours. 06/05/21 10:17 Nasal Secretion SARS-CoV-2 Antigen (Rapid) - Final SARS-CoV-2 (COVID 19) Physical Exam Const Constitutional Narrative: intubated sedated General Appearance: well kempt and well developed Orientation / Consciousness: awake, oriented to person, oriented to place and oriented to time HEENT normocephalic, head/scalp atraumatic and moist oral mucous membranes Eyes PERRL and conjunctivae normal Eyes Narrative: miotic pupils. absent corneal reflex. Neck nuchal rigidity, no lymphadenopathy, supple, no JVD, thyroid normal and no carotid bruits General: trachea midline Resp normal respiratory effort, no retractions, no use of accessory muscles and clear to auscultation bilaterally Resp Narrative: coarse breath sounds bilaterally. Auscultation: Negative for rales, rhonchi or wheezes Cardio regular rate, regular rhythm, S1 normal heart sound, S2 normal heart sound, no murmurs and no rub GI normal to inspection, nondistended, normoactive bowel sounds, soft to palpation, non-tender and non-distended Extremity normal to inspection and no clubbing, cyanosis or edema Extremity Narrative: edema. Skin no rashes or lesions noted Skin Narrative: cyanosis left toes and right toes General Skin Exam: no breakdown Neuro no sensory deficits noted Neuro Narrative: no clonus. Sensorium / Orientation: awake and alert Speech: speech normal Psych thought process normal and affect normal Psych Narrative: Patient is sedated and on the ventilator Assessment & Plan Assessment/Plan (1) COVID-19: (2) Respiratory failure: QUALIFIERS: Chronicity: acute Respiratory failure complication: hypoxia Qualified Code(s): J96.01 - Acute respiratory failure with hypoxia (3) Seizure: (4) ANAT (acute kidney injury): (5) Laceration of scalp: QUALIFIERS: Encounter type: sequela Qualified Code(s): S01.01XS - Laceration without foreign body of scalp, sequela (6) Diabetes mellitus with hyperglycemia: QUALIFIERS: Diabetes mellitus type: type 2 Diabetes mellitus technician terminal and repeater insulin use: without technician terminal and repeater use Qualified Code(s): E11.65 - Type 2 diabetes mellitus with hyperglycemia PLAN: 1. Acute hypoxic and hypercapnic respiratory failure * 2/2 COVID 19 pneumonia +/- pneumonia * on vent. FiO2 increased today due to tachypnea * on vanc and cefepime, dc if cultures wind up negative. * pulm on for vent mgmt 2. Acute COVID 19 pneumonia * unvaccinated * unknown time of onset of Sx, but her brother said she was well Thanksgiving, but stopped posting to social media after Thanksgiving (he does not know, but suspects she may have been ill shortly afterwards) * on dexamethasone * ID following 3. Seizures * new onset * no prior seizure disorder according to her brother (he himself had childhood epilepsy) * etiology unclear at present: COVID 19, anoxic encephalopathy, TBI * cannot rule out status epilepticus * had events before cefepime started * started on levetiracetam * EEG unavailable at present at [facility] * MRI when HDS * needs transfer to tertiary facility for further neurologic evaluation: EEG, in person neurology * 06/07: accepted by [facility] [place]. Given loading dose of levetiracetam 1500 and maintenance of 500 BID * 06/08: may have had another non-tonic clonic event. still awaiting on bed at * 06/09: no new seizure event. since relatively stable, will order MRI Brain * 06/10: possible seizure last night. 4. ANAT * ongoing * avoid IVF given resp failure and COVID 19 * avoid nephrotoxic agents * monitor * nephrology following: suspect ATN 5. Encephalopathy * ongoing * anoxic v metabolic v TBI * needs EEG 6. VTE prophylaxis: LMWH 7. DM2 * uncontrolled * previously non-insulin dependent * 06/07:insulin glargine 50 BID started * 12.5: glargine increase to 70 BID * 06/09: glargine increased to 90 BID * 06/10: glargine 110 BID 8. Cyanotic toes * worsening * 2/2 COVID 19 v norepinephrine * piter camacho's Charges/Coding Visit Charges Inpatient E&M: 88484 Subs Hosp L3
[2021-06-10] MEDS: Vital AF 1.2 Cal Liquid 1,000 ML 70 ML GT (12:48)
[2021-06-10 16:41] LABS: Bedside Glucose 212 mg/dL (70-110)
[2021-06-10] MEDS: Acetaminophen 650 MG/20 ML UDC GT (16:53)
[2021-06-10 17:03] LABS: Magnesium 2.4 mg/dL (1.6-2.6); Phosphorus 3.7 mg/dL (2.5-4.9)
[2021-06-10 17:51] LABS: Bedside Glucose 229 mg/dL (70-110)
[2021-06-10] MEDS: Senna/Docusate Sodium 1 Tablet 2 TABLET GT (20:44)
[2021-06-10] MEDS: Polyethylene Glycol 3350 17 GM PACKET GT (20:44)
[2021-06-11] VITALS (33 sets, daily range): BP systolic 84–138; BP diastolic 50–92; PULSE 72–116; RESP 23–47; TEMP 37.1–39.4; O2SAT 88–98
[2021-06-11 00:20] LABS: Bedside Glucose 147 mg/dL (70-110)
--- NOTE | 2021-06-11 00:26 | PCM.PN.BLA ---
Progress Note Nurse reports 2+ pitting edema. Per nurse patient is more swollen and has crackles in bilateral lower lungs. Increased FiO2 from 75% to 90% in the last 2 hours. Nursing staff requesting for trial of Lasix. Of note patient has ANAT. Lasix 40 mg IV push ordered. Follow BMP in am.
[2021-06-11] MEDS: Furosemide 40 MG/4 ML Vial IV ×2 (00:44→11:04)
[2021-06-11] MEDS: Propofol 10MG/Ml 1,000 MG/100 ML Bottle 31 MG CONT INF ×2 (02:52→05:42)
[2021-06-11] MEDS: Vital AF 1.2 Cal Liquid 1,000 ML 70 ML GT ×2 (03:36→19:53)
[2021-06-11 03:51] LABS: Absolute Neutrophil Count 8.3 X10^3/uL (2.0-7.7); Basophil# 0.01 X10^3/uL; Basophil% 0.1 % (0-1); Hematocrit 33.9 % (37-47); Hemoglobin 10.4 g/dL (12.0-15.0); Lymphocyte % 10.1 % (19-41); Mean Corp Hgb Conc 30.7 g/dL (32-36); Mean Corpuscular Hgb 30.4 pg (27.0-32.0); Mean Corpuscular Volume 99.1 fL (81-99); Mean Platelet Vol. 13.1 fl (6.2-12.0); Monocyte# 0.16 X10^3/uL; Monocyte% 1.6 % (0-10); NRBC Flagged by Analyzer 0 % (0-5); Neutrophil # 8.33 X10^3/uL (2.7-7.7); Neutrophil % 84.5 % (47-70); POSITIVE COUNT YES; POSITIVE MORPHOLOGY YES; Platelet Count 99 K/mm3 (150-450); RBC Distribution Width CV 13.6 % (11.6-14.6); Red Blood Count 3.42 M/mm3 (4.2-5.4); White Blood Count 9.9 K/mm3 (4.4-11.0)
[2021-06-11 03:52] LABS: Differential Indicated SCAN CRITERIA MET
[2021-06-11 04:04] LABS: Anion Gap 9 (5-15); BUN 58 mg/dL (7-18); BUN/Creat Ratio 27.8 RATIO (10-20); Calcium,Total 8.4 mg/dL (8.5-10.1); Chloride 115 mmol/L (98-107); Creatinine, Serum 2.09 mg/dL (0.55-1.02); EST Glomerular Filtration Rate 27 mL/min (>60); Est Glom Filt Rate - Afr Amer 33 mL/min (>60); Estimated Creatinine Clearance 29.97 ml/min; Glucose 115 mg/dL (74-106); Potassium 3.9 mmol/L (3.5-5.1); Sodium Level 148 mmol/L (136-145)
[2021-06-11 04:22] LABS: Atypical Lymphocyte RARE %; Differential Comment SCANNED
[2021-06-11] MEDS: CHLORHEXIDINE GLUC 2% CLOTH 1 EACH TOWELETTE TOPICAL (04:54)
[2021-06-11] MEDS: LORazepam 2 MG/ML Syringe IV (04:54)
[2021-06-11] MEDS: Menthol/Lanolin/Calamine/Znox 113 GM Tube 1 APPLIC TOPICAL ×3 (04:54→22:16)
[2021-06-11] MEDS: Acetaminophen 650 MG/20 ML UDC GT ×2 (05:07→11:10)
[2021-06-11 06:10] LABS: Bedside Glucose 83 mg/dL (70-110)
[2021-06-11 06:10] LABS: Bedside Glucose 103 mg/dL (70-110)
[2021-06-11] MEDS: Propofol 10MG/Ml 1,000 MG/100 ML Bottle 28.6 MG CONT INF ×6 (07:10→23:15)
[2021-06-11 07:20] LABS: Allen Test Positive; Base Excess -1 mmol/L (-2 to +2); Bicarbonate 24.1 mmol/L (22-26); FI02 75; Mode AC; O2 Delivery Device Adult Vent; PEEP 10; PO2 40 mmHG (75-100); RR 16; SITE R Radial; SO2 73 % (95-99); Total Carbon Dioxide 25 mmol/L; Vt 400; pCO2 42.9 mmHg (35-45); pH 7.36 (7.35-7.45)
--- NOTE | 2021-06-11 07:26 | PN.CC_ITS ---
Assessment & Plan Assessment/Plan (1) Respiratory failure: QUALIFIERS: Chronicity: acute Respiratory failure complication: hypoxia Qualified Code(s): J96.01 - Acute respiratory failure with hypoxia (2) COVID-19: PLAN: RECOMMENDATIONS: 1. Continue patient on assist control mode mechanical ventilation and wean FiO2/PEEP for saturations greater than 90%. 2. Consult podiatry for possible COVID toes 3. Continue Decadron as ordered to complete 10 days of therapy. 4. Continue Lantus dosing and continue high intensity sliding scale coverage. Hold scheduled short acting insulin 5. Continue fentanyl and propofol for sedation. 6. Continue Keppra as ordered along with as needed Ativan and seizure precautions. 7. Continue tube feeds as tolerated. Increase free water 8. Aggressive insulin for hyperglycemia IMPRESSIONS: 1. Acute combined respiratory failure secondary to COVID-19 pneumonia The patient presented to the hospital with altered mentation and hypoxemia and was intubated in the emergency department, after she failed to respond to noninvasive positive pressure ventilatory support. Further work-up revealed that the patient was positive for COVID-19 pneumonia. The patient will be cont inued on Decadron to complete 10 days of therapy. Renal function is stable. Defer to infectious disease on initiation of baricitinib given improved renal function. Continue patient on assist control mode of mechanical ventilation and wean FiO2/PEEP for saturations greater than 90%. Continue Lovenox as ordered. Continue empiric antimicrobials. Continue tube feeds as tolerated. 2. Acute kidney injury/hyperchloremia/hypernatremia Slightly worse. Most likely prerenal in etiology and related to acute presentation. We will continue to monitor urine output for now. No current indication for renal replacement therapy. Nephrology is currently following to assist with medical management. Clinical suspicion for elevated chloride and sodium secondary to free water losses associated with hyperglycemia. May need to give free water and Lasix pending respiratory status. 3. Encephalopathy/new onset seizures Appears secondary to acute presentation with COVID-19 pneumonia with associated hypercapnia. On June 06, the patient developed new onset seizure activity. She was placed on as needed Ativan and seizure precautions. Propofol will be preferentially utilized for sedation. Tele-neurology consultation was obtained and the patient was started on Keppra. Unable to perform EEG at the current time. Lower RASS goal for prevention. Awaiting transfer to a tertiary center for over 5 days now 4. Hyperglycemia The patient has known diabetes mellitus, which will be exacerbated by the use of Decadron. Plan to continue the patient's basal insulin regimen today and continue high intensity sliding scale coverage. Discontinue short acting scheduled insulin 5. Obesity/hyperlipidemia/diabetes mellitus/hypertension Complicates care, management, recovery and prognosis. Hold home antihypertensives. 6. COVID toes Patient continues to have a pedal pulse, but toes remain cyanotic/blue. Patient developed bulla overnight. Unclear if this is related to the phenomenon called COVID toes or other subsequent insult. Will consult podiatry for opinion TIME: 37 minutes of critical care time, independent of procedures, was spent addressing the patient's acute combined respiratory failure secondary to COVID- 19 pneumonia, acute kidney injury, encephalopathy, new onset seizures, hyperglycemia, review of all data and collaboration with the care team. Subjective Subjective Patient with some difficulties overnight. Patient was given Lasix secondary to hypoxia and rales on exam. Patient is also remained persistently febrile. Patient has developed blisters on her toes, but they remain blue. Patient did have a bowel movement. Objective Data Objective Data Vital Signs: Vital Signs Temp Pulse Resp BP Pulse Ox 38.8 C H 92 39 H 101/63 92 06/11/21 07:00 06/11/21 07:00 06/11/21 07:00 06/11/21 07:00 06/11/21 07:00 Oxygen Delivery Method Mechanical Ventilator Weight: 105.9 kg Body Mass Index (BMI) 35.3 Intake & Output: Intake and Output for Last 24 Hours 06/09/21 06/10/21 06/11/21 23:59 23:59 23:59 Intake Total 4019.13 / 4379.93 3817.42 / 3849.82 2746.49 / 2746.49 Output Total 2150 / 2450 1475 / 2025 1750 / 1750 Balance 1869.13 / 1929.93 2342.42 / 1824.82 996.49 / 996.49 Lab / Micro Data Result Diagrams: 06/11/21 03:10 06/11/21 03:10 Labs: Laboratory Results - last 24 hr 06/10/21 12:31: POC Glucose 212 H 06/10/21 16:40: Phosphorus 3.7, Magnesium 2.4 06/10/21 16:47: POC Glucose 229 H 06/10/21 23:53: POC Glucose 147 H 06/11/21 03:10: WBC 9.9, RBC 3.42 L, Hgb 10.4 L, Hct 33.9 L, MCV 99.1 H, MCH 30.4, MCHC 30.7 L, RDW Std Deviation 50.0 H, RDW Coeff of Lencho 13.6, Plt Count 99 L, MPV 13.1 H, Immature Gran % (Auto) 1.700 H, Neut % (Auto) 84.5 H, Lymph % (Auto) 10.1 L, Bennett % (Auto) 1.6, Eos % (Auto) 2.0, Baso % (Auto) 0.1, Absolute Neuts (auto) 8.3 H, Absolute Lymphs (auto) 1.00, Nucleated RBC % 0, Differential Comment SCANNED, Atypical Lymphocytes RARE 06/11/21 03:10: Sodium 148 H, Potassium 3.9, Chloride 115 H, Carbon Dioxide 24.0, Anion Gap 9, BUN 58 H, Creatinine 2.09 H, Estim Creat Clear Calc 29.97, Est GFR (MDRD) Af Amer 33 L, Est GFR (MDRD) Non-Af 27 L, BUN/Creatinine Ratio 27.8 H, Glucose 115 H, Calcium 8.4 L 06/11/21 04:58: POC Glucose 83 06/11/21 06:06: POC Glucose 103 Micro: Microbiology 06/05/21 10:10 Blood Culture (Wb) - Anticubital Right Blood Culture - Final No growth in 5 days. 06/05/21 09:45 Blood Culture (Wb) - Left Wrist Blood Culture - Final No growth in 5 days. 06/05/21 10:10 Urine Catheter - Devries Urine Culture - Final Mixed Gram Positive Organisms Yeast, not Sheree albicans 06/05/21 14:34 Sputum, Induced/Lukens Gram Stain - Final 06/05/21 14:34 Sputum, Induced/Lukens Respiratory Culture - Final Streptococcus group F 06/05/21 10:17 Nasal Secretion SARS-CoV-2 Antigen (Rapid) - Final SARS-CoV-2 (COVID 19) ABG Data ABG results: ABG 06/11/21 07:12 Specimen Type ART Sample Site R Radial pH 7.36 Bicarbonate Actual 24.1 Total CO2 25 Base Excess -1 O2 Saturation 73 L O2 % 75 ABG pCO2 42.9 ABG pO2 40 L José Miguel Test Positive Respiration Rate 16 O2 Delivery Device Adult Vent Vent Mode AC Tidal Volume 400 POC PEEP 10 Physical Exam Const Constitutional Narrative: No ventilator dyssynchrony. RASS -4 General Appearance: intubated and patient mechanically ventilated Nutritional Appearance: obese HEENT normocephalic HEENT Narrative: Nonbleeding laceration to left temporal region Mouth: endotracheal tube in place and OG tube in place Eyes PERRL and conjunctivae normal Neck supple General: trachea midline and CVC in place Chest inspection of chest normal Resp Effort and Inspection: tachypneic Auscultation: diminished lung sounds; Negative for rales, rhonchi or wheezes Cardio regular rate, regular rhythm and no murmurs GI normal to inspection, nondistended, normoactive bowel sounds Extremity Extremity Narrative: Cool to the touch. Some cyanosis of the toes. Still with pedal pulse General Extremity: cyanosis and edema bilateral (2+) lower extremity; Negative for clubbing Skin Skin Narrative: Forearm hematoma. Bulla formation noted on toes. Neuro Sensorium / Orientation: sedated on vent Charges/Coding Procedures Hospitalists Procedures: 69671 Critial Care 1st Hr
[2021-06-11 08:02] LABS: Blood Gas Specimen Type VEN
[2021-06-11] MEDS: dexAMETHasone 4 MG/ML Vial 6 MG IV (11:03)
[2021-06-11] MEDS: 0.9% Saline Lock 10 ML Syringe IV (11:03)
[2021-06-11] MEDS: Chlorhexidine 15 ML PO ×2 (11:09→22:15)
[2021-06-11] MEDS: Senna/Docusate Sodium 1 Tablet 2 TABLET GT ×2 (11:09→23:14)
[2021-06-11] MEDS: Polyethylene Glycol 3350 17 GM PACKET GT ×2 (11:09→23:14)
[2021-06-11] MEDS: Nystatin Powder 15gm Bottle 1 APPLIC TOPICAL ×2 (11:10→22:16)
[2021-06-11 11:35] LABS: Bedside Glucose 93 mg/dL (70-110)
--- NOTE | 2021-06-11 12:28 | PN.HOSP_ITS ---
Subjective Subjective edema. Receive furosemide. Objective Data Objective Data Vital Signs: Vital Signs Temp Pulse Resp BP Pulse Ox 39.4 C H 116 H 42 H 96/60 92 06/11/21 12:00 06/11/21 12:00 06/11/21 12:00 06/11/21 12:00 06/11/21 12:00 Oxygen Delivery Method Mechanical Ventilator Weight: 105.9 kg Body Mass Index (BMI) 35.3 Intake & Output: Intake and Output for Last 24 Hours 06/09/21 06/10/21 06/11/21 23:59 23:59 23:59 Intake Total 4019.13 / 4379.93 3817.42 / 3849.82 4207.24 / 4207.24 Output Total 2150 / 2450 1475 / 2025 1875 / 1875 Balance 1869.13 / 1929.93 2342.42 / 1824.82 2332.24 / 2332.24 Lab / Micro Data Result Diagrams: 06/11/21 03:10 06/11/21 03:10 Labs: Laboratory Results - last 24 hr 06/10/21 12:31: POC Glucose 212 H 06/10/21 16:40: Phosphorus 3.7, Magnesium 2.4 06/10/21 16:47: POC Glucose 229 H 06/10/21 23:53: POC Glucose 147 H 06/11/21 03:10: WBC 9.9, RBC 3.42 L, Hgb 10.4 L, Hct 33.9 L, MCV 99.1 H, MCH 30.4, MCHC 30.7 L, RDW Std Deviation 50.0 H, RDW Coeff of Elncho 13.6, Plt Count 99 L, MPV 13.1 H, Immature Gran % (Auto) 1.700 H, Neut % (Auto) 84.5 H, Lymph % (Auto) 10.1 L, [place] % (Auto) 1.6, Eos % (Auto) 2.0, Baso % (Auto) 0.1, Absolute Neuts (auto) 8.3 H, Absolute Lymphs (auto) 1.00, Nucleated RBC % 0, Differential Comment SCANNED, Atypical Lymphocytes RARE 06/11/21 03:10: Sodium 148 H, Potassium 3.9, Chloride 115 H, Carbon Dioxide 24.0, Anion Gap 9, BUN 58 H, Creatinine 2.09 H, Estim Creat Clear Calc 29.97, Est GFR (MDRD) Af Amer 33 L, Est GFR (MDRD) Non-Af 27 L, BUN/Creatinine Ratio 27.8 H, Glucose 115 H, Calcium 8.4 L 06/11/21 04:58: POC Glucose 83 06/11/21 06:06: POC Glucose 103 06/11/21 11:01: POC Glucose 93 Micro: Microbiology 06/05/21 10:10 Blood Culture (Wb) - Anticubital Right Blood Culture - Final No growth in 5 days. 06/05/21 09:45 Blood Culture (Wb) - Left Wrist Blood Culture - Final No growth in 5 days. 06/05/21 10:10 Urine Catheter - Devries Urine Culture - Final Mixed Gram Positive Organisms Yeast, not Sheree albicans 06/05/21 14:34 Sputum, Induced/Lukens Gram Stain - Final 06/05/21 14:34 Sputum, Induced/Lukens Respiratory Culture - Final Streptococcus group F 06/05/21 10:17 Nasal Secretion SARS-CoV-2 Antigen (Rapid) - Final SARS-CoV-2 (COVID 19) ABG Data ABG results: ABG 06/11/21 07:12 Specimen Type MARIAH Sample Site R Radial pH 7.36 Bicarbonate Actual 24.1 Total CO2 25 Base Excess -1 O2 Saturation 73 L O2 % 75 ABG pCO2 42.9 ABG pO2 40 L José Miguel Test Positive Respiration Rate 16 O2 Delivery Device Adult Vent Vent Mode AC Tidal Volume 400 POC PEEP 10 Physical Exam Const Constitutional Narrative: intubated and sedated. HEENT Head and Scalp: normocephalic Resp normal respiratory effort and no retractions Cardio regular rate, regular rhythm, S1 normal heart sound and S2 normal heart sound GI normal to inspection, nondistended, normoactive bowel sounds, soft to palpation, non-tender and non-distended Extremity normal to inspection Skin Skin Narrative: cyanosis of toes. bullae on left foot. Assessment & Plan Assessment/Plan (1) COVID-19: (2) Respiratory failure: QUALIFIERS: Chronicity: acute Respiratory failure complication: hypoxia Qualified Code(s): J96.01 - Acute respiratory failure with hypoxia (3) Seizure: (4) ANAT (acute kidney injury): (5) Laceration of scalp: QUALIFIERS: Encounter type: sequela Qualified Code(s): S01.01XS - Laceration without foreign body of scalp, sequela (6) Diabetes mellitus with hyperglycemia: QUALIFIERS: Diabetes mellitus type: type 2 Diabetes mellitus prison insulin use: without terminal computer operator use Qualified Code(s): E11.65 - Type 2 diabetes mellitus with hyperglycemia PLAN: 1. Acute hypoxic and hypercapnic respiratory failure * 2/2 COVID 19 pneumonia +/- pneumonia * on vent. FiO2 increased today due to tachypnea * on vanc and cefepime, dc if cultures wind up negative. * pulm on for vent mgmt 2. Acute COVID 19 pneumonia * unvaccinated * unknown time of onset of Sx, but her brother said she was well Thanksgiving, but stopped posting to social media after Thanksgiving (he does not know, but suspects she may have been ill shortly afterwards) * on dexamethasone * ID following 3. Seizures * new onset * no prior seizure disorder according to her brother (he himself had childhood epilepsy) * etiology unclear at present: COVID 19, anoxic encephalopathy, TBI * cannot rule out status epilepticus * had events before cefepime started * started on levetiracetam * EEG unavailable at present at [facility] * MRI when HDS * needs transfer to tertiary facility for further neurologic evaluation: EEG, in person neurology * 06/07: accepted by [facility]. Given loading dose of levetiracetam 1500 and maintenance of 500 BID * 06/08: may have had another non-tonic clonic event. still awaiting on bed at * 06/09: no new seizure event. since relatively stable, will order MRI Brain * 06/10: possible seizure last night. 4. ANAT * ongoing * avoid IVF given resp failure and COVID 19 * avoid nephrotoxic agents * monitor * nephrology following: suspect ATN 5. Encephalopathy * ongoing * anoxic v metabolic v TBI * needs EEG 6. VTE prophylaxis: SCD 7. DM2 * uncontrolled * previously non-insulin dependent * /:insulin glargine 50 BID started * 12.5: glargine increase to 70 BID * 06/09: glargine increased to 90 BID * 06/10: glargine 110 BID 8. Cyanotic toes * worsening * 2/2 COVID 19 v norepinephrine * norepi dc's * podiatry consult Prognosis guarded to poor. Charges/Coding Visit Charges Inpatient E&M: 08874 Subs Hosp L2
[2021-06-11 14:25] LABS: Bedside Glucose 152 mg/dL (70-110)
[2021-06-11] MEDS: Insulin Lispro 100 UNIT/ML INSULN.PEN SC ×2 (17:51→23:12)
[2021-06-11 18:20] LABS: Bedside Glucose 177 mg/dL (70-110)
--- NOTE | 2021-06-11 18:27 | PCM.CONS.GEN ---
Assessment & Plan Assessment/Plan (1) Black toe: PLAN: Evaluation performed. 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 She will likely require an amputation of at least the forefoot in the future. Recommend monitoring pedal pulses, and let demarcate. Patient has thrombocytopenia, so her anticoagulation has been held. Case was discussed with vascular specialist Dr. Lopez, and no further recommendations at this time. I did speak with Dr. Jackson. Thank you for consultation. (2) COVID-19: (3) Diabetes mellitus with hyperglycemia: QUALIFIERS: Diabetes mellitus type: type 2 Diabetes mellitus assistant terminal manager insulin use: without detention use Qualified Code(s): E11.65 - Type 2 diabetes mellitus with hyperglycemia HPI Consult Data Date of Consult: 06/11/21 HPI Narrative Reason for Consultation: Black toes HPI Narrative: BRODY HUERTA, is a 45 F who is intubated with COVID 19, also hx of diabetes and other medical problems. She is in ICU, and on Wednesday toes started to turn blue, which have been worsening and now turning black. She is pending transfer to . She has been having seisures, also ANAT. History was obtained from chart. Also spoke with Dr. Jackson. [facility] Medical History Diabetes Incontinence neck and back pain Home Medications losartan 50 mg tablet 25 mg PO DAILY 08/25/17 [History Last Taken 03/02/18] metformin 1,000 mg tablet 1,000 mg PO BID 08/25/17 [History Last Taken 03/02/18] oxybutynin chloride 5 mg tablet 5 mg PO BID 08/25/17 [History Last Taken 03/02/18] cholecalciferol (vitamin D3) 1 cap PO QWEEK 05/08/18 [History Last Taken Unknown] atorvastatin 20 mg PO DAILY 04/14/21 [History Last Taken Unknown] dulaglutide [Trulicity] 1.5 mg SUBCUT QWEEK 04/14/21 [History Last Taken Unknown] glimepiride 2 mg PO DAILY 04/14/21 [History Last Taken Unknown] hydrocodone-acetaminophen 1 tab PO Q6H PRN 3 Days #10 tab 04/14/21 [Rx Last Taken Unknown] Allergy/AdvReac Type Severity Reaction Status Date / Time No Known Allergies Allergy Verified 06/05/21 09:19 Surgical History History of foot surgery Social History Smoking Status: Never smoker alcohol intake: never Physical Exam Const General Appearance: intubated Extremity Extremity Narrative: There is cyanosis and gangrenous changes to the majority of the toes bilateral, there is superficial bulla noted to the left dorsal forefoot with serous drainage, roof intact, there is no erythema, no cellulitis, no fluctuance, no crepitus, no visible abscess bilateral. Toes are cool to touch bilateral, rest of foot normal temperature, no significant edema to the foot/ankle or leg bilateral. No evidence of DVT bilateral. No evidence of infection bilateral foot. DP and PT pulses easily palpable bilateral foot. No evidence of charcot neuroarthropathy, no evidence of compartment syndrome bilateral foot. No significant deformity to foot bilateral. Sensation unable to be assessed. Peripheral Pulses: Yes posterior tibial pulses present and dorsalis pedis pulses present Lab / Micro Data Result Diagrams: 06/11/21 03:10 06/11/21 03:10 Labs: Laboratory Results - last 24 hr 06/10/21 23:53: POC Glucose 147 H 06/11/21 03:10: WBC 9.9, RBC 3.42 L, Hgb 10.4 L, Hct 33.9 L, MCV 99.1 H, MCH 30.4, MCHC 30.7 L, RDW Std Deviation 50.0 H, RDW Coeff of Lencho 13.6, Plt Count 99 L, MPV 13.1 H, Immature Gran % (Auto) 1.700 H, Neut % (Auto) 84.5 H, Lymph % (Auto) 10.1 L, [place] % (Auto) 1.6, Eos % (Auto) 2.0, Baso % (Auto) 0.1, Absolute Neuts (auto) 8.3 H, Absolute Lymphs (auto) 1.00, Nucleated RBC % 0, Differential Comment SCANNED, Atypical Lymphocytes RARE 06/11/21 03:10: Sodium 148 H, Potassium 3.9, Chloride 115 H, Carbon Dioxide 24.0, Anion Gap 9, BUN 58 H, Creatinine 2.09 H, Estim Creat Clear Calc 29.97, Est GFR (MDRD) Af Amer 33 L, Est GFR (MDRD) Non-Af 27 L, BUN/Creatinine Ratio 27.8 H, Glucose 115 H, Calcium 8.4 L 06/11/21 04:58: POC Glucose 83 06/11/21 06:06: POC Glucose 103 06/11/21 11:01: POC Glucose 93 06/11/21 14:12: POC Glucose 152 H 06/11/21 17:40: POC Glucose 177 H ABG Data ABG results: ABG 06/11/21 07:12 Specimen Type MARIAH Sample Site R Radial pH 7.36 Bicarbonate Actual 24.1 Total CO2 25 Base Excess -1 O2 Saturation 73 L O2 % 75 ABG pCO2 42.9 ABG pO2 40 L José Miguel Test Positive Respiration Rate 16 O2 Delivery Device Adult Vent Vent Mode AC Tidal Volume 400 POC PEEP 10
--- NOTE | 2021-06-11 19:15 | RAD_ITS ---
STUDY: X-RAY - LEFT FOOT CLINICAL: Female, 45 years old. gangrene to toes TECHNIQUE: 3 view(s) of the foot. COMPARISON: None. FINDINGS: There is a plantar calcaneal spur. Normal visualized subtalar, talonavicular, calcaneocuboid, tarsal and tarsometatarsal articulations. Normal metatarsi. Normal metatarsophalangeal joint of the great toe. Normal tibial and fibular sesamoid bones. Normal interphalangeal joint of the great toe. Normal phalanges of the great toe. Normal second through fifth metatarsophalangeal joints. Normal interphalangeal joints and phalanges of the lesser toes. The soft tissue structures are unremarkable. RAD/Foot min 3 Views IMPRESSION: No evidence of osteomyelitis. Electronically Signed: Emily Daniels MD at 0:31 EST Tel , Service support ,
--- NOTE | 2021-06-11 19:15 | RAD_ITS ---
STUDY: X-RAY - RIGHT FOOT CLINICAL: Female, 45 years old. gangrene to toes TECHNIQUE: 3 view(s) of the foot. COMPARISON: None. FINDINGS: There is a plantar calcaneal spur. Normal visualized subtalar, talonavicular, calcaneocuboid, tarsal and tarsometatarsal articulations. Normal metatarsi. There is degenerative arthrosis of the metatarsophalangeal joint of the hallux . Normal tibial and fibular sesamoid bones. Normal interphalangeal joint of the great toe. Normal phalanges of the great toe. Normal second through fifth metatarsophalangeal joints. Normal interphalangeal joints and phalanges of the lesser toes. The soft tissue structures are unremarkable. RAD/Foot min 3 Views IMPRESSION: There is degenerative arthrosis of the metatarsophalangeal joint of the hallux . Electronically Signed: Emily Daniels MD at 0:33 EST Tel , Service support ,
--- NOTE | 2021-06-11 19:34 | PCM.PN.REN ---
Subjective Subjective intubated sedated 75% FiO2 Objective Data Objective Data Vital Signs: Vital Signs Temp Pulse Resp BP Pulse Ox 99.2 F H 79 31 H 99/59 L 96 06/11/21 19:00 06/11/21 19:00 06/11/21 19:00 06/11/21 19:00 06/11/21 19:00 Oxygen Delivery Method Mechanical Ventilator Weight: 105.9 kg Body Mass Index (BMI) 35.3 Intake & Output: Intake and Output for Last 24 Hours 06/09/21 06/10/21 06/11/21 23:59 23:59 23:59 Intake Total 4019.13 / 4379.93 3817.42 / 3849.82 5614.04 / 5614.04 Output Total 2150 / 2450 1474 / 2024 Balance 1869.13 / 1929.93 2342.42 / 1824.82 3614.04 / 3614.04 Lab / Micro Data Result Diagrams: 06/11/21 03:10 06/11/21 03:10 Labs: Laboratory Results - last 24 hr 06/10/21 23:53: POC Glucose 147 H 06/11/21 03:10: WBC 9.9, RBC 3.42 L, Hgb 10.4 L, Hct 33.9 L, MCV 99.1 H, MCH 30.4, MCHC 30.7 L, RDW Std Deviation 50.0 H, RDW Coeff of Lencho 13.6, Plt Count 99 L, MPV 13.1 H, Immature Gran % (Auto) 1.700 H, Neut % (Auto) 84.5 H, Lymph % (Auto) 10.1 L, [place] % (Auto) 1.6, Eos % (Auto) 2.0, Baso % (Auto) 0.1, Absolute Neuts (auto) 8.3 H, Absolute Lymphs (auto) 1.00, Nucleated RBC % 0, Differential Comment SCANNED, Atypical Lymphocytes RARE 06/11/21 03:10: Sodium 148 H, Potassium 3.9, Chloride 115 H, Carbon Dioxide 24.0, Anion Gap 9, BUN 58 H, Creatinine 2.09 H, Estim Creat Clear Calc 29.97, Est GFR (MDRD) Af Amer 33 L, Est GFR (MDRD) Non-Af 27 L, BUN/Creatinine Ratio 27.8 H, Glucose 115 H, Calcium 8.4 L 06/11/21 04:58: POC Glucose 83 06/11/21 06:06: POC Glucose 103 06/11/21 11:01: POC Glucose 93 06/11/21 14:12: POC Glucose 152 H 06/11/21 17:40: POC Glucose 177 H Micro: Microbiology 06/05/21 10:10 Blood Culture (Wb) - Anticubital Right Blood Culture - Final No growth in 5 days. 06/05/21 09:45 Blood Culture (Wb) - Left Wrist Blood Culture - Final No growth in 5 days. 06/05/21 10:10 Urine Catheter - Devries Urine Culture - Final Mixed Gram Positive Organisms Yeast, not Sheree albicans 06/05/21 14:34 Sputum, Induced/Lukens Gram Stain - Final 06/05/21 14:34 Sputum, Induced/Lukens Respiratory Culture - Final Streptococcus group F 06/05/21 10:17 Nasal Secretion SARS-CoV-2 Antigen (Rapid) - Final SARS-CoV-2 (COVID 19) ABG Data ABG results: ABG 06/11/21 07:12 Specimen Type MARIAH Sample Site R Radial pH 7.36 Bicarbonate Actual 24.1 Total CO2 25 Base Excess -1 O2 Saturation 73 L O2 % 75 ABG pCO2 42.9 ABG pO2 40 L José Miguel Test Positive Respiration Rate 16 O2 Delivery Device Adult Vent Vent Mode AC Tidal Volume 400 POC PEEP 10 Physical Exam Narrative exam minimized due to covid dw staff dw ICU attending Assessment & Plan Assessment/Plan (1) ANAT (acute kidney injury): PLAN: due to ATN. clinically worsened overnight. increasing O2 requirements. received lasix but no significant urine output. significantly net positive. still waiting on ICU transfer to . may need [employer] HR REPRESENTATIVE if she is still here tomorrow. electrolytes are ok for now. dw Dr Hunter
[2021-06-12] VITALS (31 sets, daily range): BP systolic 91–153; BP diastolic 58–91; PULSE 71–94; RESP 14–50; TEMP 36.1–37.7; O2SAT 86–98
[2021-06-12 00:06] LABS: Bedside Glucose 209 mg/dL (70-110)
[2021-06-12] MEDS: Propofol 10MG/Ml 1,000 MG/100 ML Bottle 28.6 MG CONT INF ×3 (02:58→07:55)
[2021-06-12 04:26] LABS: Absolute Lymphocyte Count 0.71 X10^3/uL (0.83-4.51); Absolute Neutrophil Count 11.6 X10^3/uL (2.0-7.7); Basophil# 0.02 X10^3/uL; Basophil% 0.2 % (0-1); Eosinophils% 0.8 % (0-5); Hematocrit 32.5 % (37-47); Hemoglobin 10.3 g/dL (12.0-15.0); Lymphocyte # 0.71 X10^3/ul (0.83-4.51); Lymphocyte % 5.4 % (19-41); Mean Corp Hgb Conc 31.7 g/dL (32-36); Mean Corpuscular Hgb 31.4 pg (27.0-32.0); Mean Corpuscular Volume 99.1 fL (81-99); Mean Platelet Vol. 12.4 fl (6.2-12.0); Monocyte# 0.28 X10^3/uL; Monocyte% 2.1 % (0-10); NRBC Flagged by Analyzer 0 % (0-5); Neutrophil # 11.58 X10^3/uL (2.7-7.7); Neutrophil % 88.6 % (47-70); POSITIVE MORPHOLOGY YES; Platelet Count 115 K/mm3 (150-450); RBC Distribution Width CV 13.2 % (11.6-14.6); RBC Distribution Width SD 48.1 fl (35.1-43.9); Red Blood Count 3.28 M/mm3 (4.2-5.4); White Blood Count 13.1 K/mm3 (4.4-11.0)
[2021-06-12 04:29] LABS: Differential Indicated SCAN CRITERIA MET
[2021-06-12 04:48] LABS: Differential Comment SCANNED
[2021-06-12] MEDS: 0.9% Saline Lock 10 ML Syringe IV ×4 (05:00→11:15)
[2021-06-12 05:08] LABS: ALB/GLOB Ratio 0.2 RATIO (0.9-2.4); AST(SGOT) 137 U/L (15-37); Alanine Aminotransfer ALT/SGPT 54 U/L (13-56); Albumin, Serum 1.2 g/dL (3.2-5.0); Alkaline Phosphatase 104 U/L (45-117); Anion Gap 11 (5-15); BUN 85 mg/dL (7-18); BUN/Creat Ratio 24.4 RATIO (10-20); Calcium,Total 8.4 mg/dL (8.5-10.1); Chloride 109 mmol/L (98-107); Creatinine, Serum 3.48 mg/dL (0.55-1.02); EST Glomerular Filtration Rate 15 mL/min (>60); Est Glom Filt Rate - Afr Amer 18 mL/min (>60); Globulin 4.9 g/dL (2.2-4.2); Glucose 240 mg/dL (74-106); Potassium 4.4 mmol/L (3.5-5.1); Protein, Total 6.1 g/dL (6.4-8.2); Sodium Level 140 mmol/L (136-145)
[2021-06-12] MEDS: Insulin Lispro 100 UNIT/ML INSULN.PEN SC ×3 (05:30→17:34)
[2021-06-12] MEDS: Menthol/Lanolin/Calamine/Znox 113 GM Tube 1 APPLIC TOPICAL ×3 (05:42→20:21)
[2021-06-12] MEDS: Furosemide 40 MG/4 ML Vial IV (06:29)
--- NOTE | 2021-06-12 07:32 | PN.CC_ITS ---
Assessment & Plan Assessment/Plan (1) Respiratory failure: QUALIFIERS: Chronicity: acute Respiratory failure complication: hypoxia Qualified Code(s): J96.01 - Acute respiratory failure with hypoxia (2) COVID-19: PLAN: RECOMMENDATIONS: 1. Continue patient on assist control mode mechanical ventilation and wean FiO2/PEEP for saturations greater than 90%. 2. Appreciate podiatry input 3. Continue Decadron as ordered to complete 10 days of therapy. 4. Continue Lantus dosing and continue high intensity sliding scale coverage. 5. Continue fentanyl and propofol for sedation. 6. Continue Keppra as ordered along with as needed Ativan and seizure precautions. 7. Continue tube feeds as tolerated. Decrease free water 8. Diuretic challenge IMPRESSIONS: 1. Acute combined respiratory failure secondary to COVID-19 pneumonia The patient presented to the hospital with altered mentation and hypoxemia and was intubated in the emergency department, after she failed to respond to noninvasive positive pressure ventilatory support. Further work-up revealed that the patient was positive for COVID-19 pneumonia. The patient will be continued on Decadron to complete 10 days of therapy. Renal function is stable. Defer to infectious disease on initiation of baricitinib given improved renal function. Continue patient on assist control mode of mechanical ventilation and wean FiO2/PEEP for saturations greater than 90%. Continue Lovenox as ordered. Continue empiric antimicrobials. Continue tube feeds as tolerated. 2. Acute kidney injury/hyperchloremia/hypernatremia Patient with significant elevation in creatinine over the last 24 hours. However, urine output has improved. We will challenge with Lasix this morning. Patient does not have any electrolyte indications for renal replacement, so if urine output can be maintained we may be able to avoid SECOND BUTLER in the short-term. Hyperchloremia and hypernatremia have improved with free water. Will normalize flushes. 3. Encephalopathy/new onset seizures Appears secondary to acute presentation with COVID-19 pneumonia with associated hypercapnia. On June 06, the patient developed new onset seizure activity. She was placed on as needed Ativan and seizure precautions. Propofol will be preferentially utilized for sedation. Tele-neurology consultation was obtained and the patient was started on Keppra. Unable to perform EEG at the current time. Lower RASS goal for prevention. Awaiting transfer to a tertiary center for over 6 days now 4. Hyperglycemia The patient has known diabetes mellitus, which will be exacerbated by the use of Decadron. Plan to continue the patient's basal insulin regimen today and continue high intensity sliding scale coverage. Much better control 5. Obesity/hyperlipidemia/diabetes mellitus/hypertension Complicates care, management, recovery and prognosis. Hold home antihypertensives. 6. COVID toes Conservative approach. Patient continues to have a pedal pulse, but toes remain cyanotic/blue. Patient developed bulla overnight. Unclear if this is related to the phenomenon called COVID toes or other subsequent insult. Will consult podiatry for opinion Addendum 1:52 PM: Discussed with nephrology by phone. Patient did respond to Lasix therapy this morning. Patient has no absolute indications for SECOND BUTLER at this time. We will continue to challenge with increased dose of Lasix overnight. Recheck laboratory studies in the morning. TIME: 45 minutes of critical care time, independent of procedures, was spent addressing the patient's acute combined respiratory failure secondary to COVID- 19 pneumonia, acute kidney injury, encephalopathy, new onset seizures, hyperglycemia, review of all data and collaboration with the care team. Subjective Subjective Patient did okay overnight. Patient did have some increased urine output overnight, but remains significantly edematous. Patient is also had a significant weight gain. Oxygenation has remained relatively stable. Patient did have a bowel movement. Objective Data Objective Data Vital Signs: Vital Signs Temp Pulse Resp BP Pulse Ox 36.9 C 72 35 H 103/68 93 06/12/21 07:00 06/12/21 07:00 06/12/21 07:00 06/12/21 07:00 06/12/21 06:00 Oxygen Delivery Method Mechanical Ventilator Weight: 110.6 kg Body Mass Index (BMI) 35.3 Intake & Output: Intake and Output for Last 24 Hours 06/10/21 06/11/21 06/12/21 23:59 23:59 23:59 Intake Total 3817.42 / 3849.82 6129.16 / 6170.61 1397.01 / 1397.01 Output Total 1475 / 5 2049 / 2049 550 / 550 Balance 2342.42 / 1824.82 4079.16 / 4120.61 847.01 / 847.01 Lab / Micro Data Result Diagrams: 06/12/21 04:15 06/12/21 11:45 Labs: Laboratory Results - last 24 hr 06/11/21 11:01: POC Glucose 93 06/11/21 14:12: POC Glucose 152 H 06/11/21 17:40: POC Glucose 177 H 06/11/21 23:07: POC Glucose 209 H 06/12/21 04:15: WBC 13.1 H, RBC 3.28 L, Hgb 10.3 L, Hct 32.5 L, MCV 99.1 H, MCH 31.4, MCHC 31.7 L, RDW Std Deviation 48.1 H, RDW Coeff of Lencho 13.2, Plt Count 115 L, MPV 12.4 H, Immature Gran % (Auto) 2.900 H, Neut % (Auto) 88.6 H, Lymph % (Auto) 5.4 L, [place] % (Auto) 2.1, Eos % (Auto) 0.8, Baso % (Auto) 0.2, Absolute Neuts (auto) 11.6 H, Absolute Lymphs (auto) 0.71 L, Nucleated RBC % 0, Differential Comment SCANNED 06/12/21 04:15: Sodium 140, Potassium 4.4, Chloride 109 H, Carbon Dioxide 20.0 L , Anion Gap 11, BUN 85 H, Creatinine 3.48 H, Estim Creat Clear Calc 18.00, Est GFR (MDRD) Af Amer 18 L, Est GFR (MDRD) Non-Af 15 L, BUN/Creatinine Ratio 24.4 H , Glucose 240 H, Calcium 8.4 L, Total Bilirubin 0.40, AST 137 H, ALT 54, Alkaline Phosphatase 104, Total Protein 6.1 L, Albumin 1.2 L, Globulin 4.9 H, Albumin/Globulin Ratio 0.2 L Micro: Microbiology 06/05/21 10:10 Blood Culture (Wb) - Anticubital Right Blood Culture - Final No growth in 5 days. 06/05/21 09:45 Blood Culture (Wb) - Left Wrist Blood Culture - Final No growth in 5 days. 06/05/21 10:10 Urine Catheter - Devries Urine Culture - Final Mixed Gram Positive Organisms Yeast, not Sheree albicans 06/05/21 14:34 Sputum, Induced/Lukens Gram Stain - Final 06/05/21 14:34 Sputum, Induced/Lukens Respiratory Culture - Final Streptococcus group F 06/05/21 10:17 Nasal Secretion SARS-CoV-2 Antigen (Rapid) - Final SARS-CoV-2 (COVID 19) ABG Data ABG results: ABG 06/11/21 07:12 Specimen Type MARIAH Radiography Diagnostic Testing: Radiology Impression Foot X-Ray 06/11/21 19:15 IMPRESSION: No evidence of osteomyelitis. Electronically Signed: Emily Daniels MD at 0:31 EST Tel , Service support , Foot X-Ray 06/11/21 19:15 IMPRESSION: There is degenerative arthrosis of the metatarsophalangeal joint of the hallux . Electronically Signed: Emily Daniels MD at 0:33 EST Tel , Service support , Physical Exam Const Constitutional Narrative: No ventilator dyssynchrony. RASS -4. Anasarca. General Appearance: intubated and patient mechanically ventilated Nutritional Appearance: obese HEENT normocephalic HEENT Narrative: Nonbleeding laceration to left temporal region Mouth: endotracheal tube in place and OG tube in place Eyes PERRL and conjunctivae normal Neck supple General: trachea midline and CVC in place Chest inspection of chest normal Resp Effort and Inspection: tachypneic Auscultation: diminished lung sounds; Negative for rales, rhonchi or wheezes Cardio regular rate, regular rhythm and no murmurs GI normal to inspection, nondistended, normoactive bowel sounds Extremity Extremity Narrative: Cool to the touch. Some gangrenous of the toes. Still with pedal pulse General Extremity: cyanosis and edema; Negative for clubbing Skin Skin Narrative: Forearm hematoma. Bulla formation noted on toes. Neuro Sensorium / Orientation: sedated on vent Charges/Coding Procedures Hospitalists Procedures: [id number] Critial Care 1st Hr
[2021-06-12] MEDS: Nystatin Powder 15gm Bottle 1 APPLIC TOPICAL ×2 (08:00→20:21)
[2021-06-12] MEDS: Chlorhexidine 15 ML PO ×2 (08:00→20:20)
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
[2021-06-12] MEDS: dexAMETHasone 4 MG/ML Vial 6 MG IV (11:09)
[2021-06-12] MEDS: Propofol 10MG/Ml 1,000 MG/100 ML Bottle 31.8 MG CONT INF ×5 (11:10→21:54)
[2021-06-12] MEDS: Polyethylene Glycol 3350 17 GM PACKET GT (11:13)
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
[2021-06-12 11:25] LABS: Bedside Glucose 190 mg/dL (70-110)
[2021-06-12] MEDS: Vital AF 1.2 Cal Liquid 1,000 ML 70 ML GT (11:38)
[2021-06-12 12:03] LABS: Partial Thromboplast Time 26.5 Seconds (24.1-36.2)
[2021-06-12 12:31] LABS: Anion Gap 13 (5-15); BUN 91 mg/dL (7-18); BUN/Creat Ratio 24.5 RATIO (10-20); CPK Total, Creatine Kinase 3894 U/L (26-192); Calcium,Total 8.7 mg/dL (8.5-10.1); Chloride 109 mmol/L (98-107); Creatinine, Serum 3.72 mg/dL (0.55-1.02); EST Glomerular Filtration Rate 14 mL/min (>60); Est Glom Filt Rate - Afr Amer 17 mL/min (>60); Estimated Creatinine Clearance 16.84 ml/min; Glucose 199 mg/dL (74-106); Magnesium 2.7 mg/dL (1.6-2.6); Phosphorus 6.4 mg/dL (2.5-4.9); Potassium 4.1 mmol/L (3.5-5.1); Sodium Level 142 mmol/L (136-145); Triglycerides 450 mg/dL
--- NOTE | 2021-06-12 13:52 | PCM.PN.REN ---
Subjective Subjective Patient remains intubated. Received a dose of Lasix this morning, urine output is about 4-500. Creatinine is slightly higher. Remains on high FiO2 and PEEP. Potassium and bicarbonate are okay. Objective Data Objective Data Vital Signs: Vital Signs Temp Pulse Resp BP Pulse Ox 98.4 F 91 38 H 103/68 92 06/12/21 07:00 06/12/21 13:33 06/12/21 13:33 06/12/21 07:00 06/12/21 13:33 Oxygen Delivery Method Mechanical Ventilator Weight: 110.6 kg Body Mass Index (BMI) 35.3 Intake & Output: Intake and Output for Last 24 Hours 06/10/21 06/11/21 06/12/21 23:59 23:59 23:59 Intake Total 3817.42 / 3849.82 6129.16 / 6170.61 2401.09 / 2401.09 Output Total 1475 / 2025 2050 / 2050 1050 / 1050 Balance 2342.42 / 1824.82 4079.16 / 4120.61 1351.09 / 1351.09 Lab / Micro Data Result Diagrams: 06/12/21 04:15 06/12/21 11:45 Labs: Laboratory Results - last 24 hr 06/11/21 14:12: POC Glucose 152 H 06/11/21 17:40: POC Glucose 177 H 06/11/21 23:07: POC Glucose 209 H 06/12/21 04:15: WBC 13.1 H, RBC 3.28 L, Hgb 10.3 L, Hct 32.5 L, MCV 99.1 H, MCH 31.4, MCHC 31.7 L, RDW Std Deviation 48.1 H, RDW Coeff of Lencho 13.2, Plt Count 115 L, MPV 12.4 H, Immature Gran % (Auto) 2.900 H, Neut % (Auto) 88.6 H, Lymph % (Auto) 5.4 L, [place] % (Auto) 2.1, Eos % (Auto) 0.8, Baso % (Auto) 0.2, Absolute Neuts (auto) 11.6 H, Absolute Lymphs (auto) 0.71 L, Nucleated RBC % 0, Differential Comment SCANNED 06/12/21 04:15: Sodium 140, Potassium 4.4, Chloride 109 H, Carbon Dioxide 20.0 L, Anion Gap 11, BUN 85 H, Creatinine 3.48 H, Estim Creat Clear Calc 18.00, Est GFR (MDRD) Af Amer 18 L, Est GFR (MDRD) Non-Af 15 L, BUN/Creatinine Ratio 24.4 H, Glucose 240 H, Calcium 8.4 L, Total Bilirubin 0.40, AST 137 H, ALT 54, Alkaline Phosphatase 104, Total Protein 6.1 L, Albumin 1.2 L, Globulin 4.9 H, Albumin/Globulin Ratio 0.2 L 06/12/21 11:01: POC Glucose 190 H 06/12/21 11:45: APTT 26.5 06/12/21 11:45: Sodium 142, Potassium 4.1, Chloride 109 H, Carbon Dioxide 20.0 L, Anion Gap 13, BUN 91 H, Creatinine 3.72 H, Estim Creat Clear Calc 16.84, Est GFR (MDRD) Af Amer 17 L, Est GFR (MDRD) Non-Af 14 L, BUN/Creatinine Ratio 24.5 H, Glucose 199 H, Calcium 8.7, Phosphorus 6.4 H, Magnesium 2.7 H, Total Creatine Kinase 3894 H, Triglycerides 450 H Micro: Microbiology 06/05/21 10:10 Blood Culture (Wb) - Anticubital Right Blood Culture - Final No growth in 5 days. 06/05/21 09:45 Blood Culture (Wb) - Left Wrist Blood Culture - Final No growth in 5 days. 06/05/21 10:10 Urine Catheter - Devries Urine Culture - Final Mixed Gram Positive Organisms Yeast, not Sheree albicans 06/05/21 14:34 Sputum, Induced/Lukens Gram Stain - Final 06/05/21 14:34 Sputum, Induced/Lukens Respiratory Culture - Final Streptococcus group F 06/05/21 10:17 Nasal Secretion SARS-CoV-2 Antigen (Rapid) - Final SARS-CoV-2 (COVID 19) Radiography Diagnostic Testing: Radiology Impression Foot X-Ray 06/11/21 19:15 IMPRESSION: No evidence of osteomyelitis. Electronically Signed: Emily Daniels MD at 0:31 EST Tel , Service support , Foot X-Ray 06/11/21 19:15 IMPRESSION: There is degenerative arthrosis of the metatarsophalangeal joint of the hallux . Electronically Signed: Emily Daniels MD at 0:33 EST Tel , Service support , Physical Exam Narrative Exam minimized due to Covid. Discussed with ICU attending. Assessment & Plan Assessment/Plan (1) ANAT (acute kidney injury): PLAN: due to ATN. Creatinine has been worsening. Urine output is lower than before. We will try high-dose Lasix 80 mg IV twice daily to see if we can drive urine output. Potassium and acid-base status is okay. Other events include severe Covid pneumonia, ARDS Possible seizures. There is no clear way to diagnose frequency and duration of seizures here, hence she is on a transfer list to a tertiary care center. Unfortunately bed situation is critical. She is on empiric antiepileptics. CK levels are almost 4000, likely reflective of ongoing seizures. She really needs to go to a tertiary care center where she can have continuous EEG. Unfortunately there is no beds available. Discussed with ICU attending We will try Lasix bolus regimen today As per phone call with [facility] this morning she is higher on the list. Hopefully she will get transferred out soon
--- NOTE | 2021-06-12 15:27 | PN.HOSP_ITS ---
Subjective Subjective Still on vent. Objective Data Objective Data Vital Signs: Vital Signs Temp Pulse Resp BP Pulse Ox 37.5 C H 92 37 H 117/72 91 06/12/21 14:00 06/12/21 14:00 06/12/21 14:00 06/12/21 14:00 06/12/21 14:00 Oxygen Delivery Method Mechanical Ventilator Weight: 110.6 kg Body Mass Index (BMI) 35.3 Intake & Output: Intake and Output for Last 24 Hours 06/10/21 06/11/21 06/12/21 23:59 23:59 23:59 Intake Total 3817.42 / 3849.82 6129.16 / 6170.61 2562.84 / 2562.84 Output Total 1475 / 2025 2050 / 2050 1050 / 1050 Balance 2342.42 / 1824.82 4079.16 / 4120.61 1512.84 / 1512.84 Lab / Micro Data Result Diagrams: 06/12/21 04:15 06/12/21 11:45 Labs: Laboratory Results - last 24 hr 06/11/21 17:40: POC Glucose 177 H 06/11/21 23:07: POC Glucose 209 H 06/12/21 04:15: WBC 13.1 H, RBC 3.28 L, Hgb 10.3 L, Hct 32.5 L, MCV 99.1 H, MCH 31.4, MCHC 31.7 L, RDW Std Deviation 48.1 H, RDW Coeff of Lencho 13.2, Plt Count 115 L, MPV 12.4 H, Immature Gran % (Auto) 2.900 H, Neut % (Auto) 88.6 H, Lymph % (Auto) 5.4 L, [place] % (Auto) 2.1, Eos % (Auto) 0.8, Baso % (Auto) 0.2, Absolute Neuts (auto) 11.6 H, Absolute Lymphs (auto) 0.71 L, Nucleated RBC % 0, Differential Comment SCANNED 06/12/21 04:15: Sodium 140, Potassium 4.4, Chloride 109 H, Carbon Dioxide 20.0 L , Anion Gap 11, BUN 85 H, Creatinine 3.48 H, Estim Creat Clear Calc 18.00, Est GFR (MDRD) Af Amer 18 L, Est GFR (MDRD) Non-Af 15 L, BUN/Creatinine Ratio 24.4 H , Glucose 240 H, Calcium 8.4 L, Total Bilirubin 0.40, AST 137 H, ALT 54, Alkaline Phosphatase 104, Total Protein 6.1 L, Albumin 1.2 L, Globulin 4.9 H, Albumin/Globulin Ratio 0.2 L 06/12/21 11:01: POC Glucose 190 H 06/12/21 11:45: APTT 26.5 06/12/21 11:45: Sodium 142, Potassium 4.1, Chloride 109 H, Carbon Dioxide 20.0 L , Anion Gap 13, BUN 91 H, Creatinine 3.72 H, Estim Creat Clear Calc 16.84, Est GFR (MDRD) Af Amer 17 L, Est GFR (MDRD) Non-Af 14 L, BUN/Creatinine Ratio 24.5 H , Glucose 199 H, Calcium 8.7, Phosphorus 6.4 H, Magnesium 2.7 H, Total Creatine Kinase 3894 H, Triglycerides 450 H Micro: Microbiology 06/05/21 10:10 Blood Culture (Wb) - Anticubital Right Blood Culture - Final No growth in 5 days. 06/05/21 09:45 Blood Culture (Wb) - Left Wrist Blood Culture - Final No growth in 5 days. 06/05/21 10:10 Urine Catheter - Devries Urine Culture - Final Mixed Gram Positive Organisms Yeast, not Sheree albicans 06/05/21 14:34 Sputum, Induced/Lukens Gram Stain - Final 06/05/21 14:34 Sputum, Induced/Lukens Respiratory Culture - Final Streptococcus group F 06/05/21 10:17 Nasal Secretion SARS-CoV-2 Antigen (Rapid) - Final SARS-CoV-2 (COVID 19) Radiography Diagnostic Testing: Radiology Impression Foot X-Ray 06/11/21 19:15 IMPRESSION: No evidence of osteomyelitis. Electronically Signed: Emily Daniels MD at 0:31 EST Tel , Service support , Foot X-Ray 06/11/21 19:15 IMPRESSION: There is degenerative arthrosis of the metatarsophalangeal joint of the hallux . Electronically Signed: Emily Daniels MD at 0:33 EST Tel , Service support , Physical Exam Const Constitutional Narrative: intubated and sedated. Eyes PERRL Resp Resp Narrative: coarse BS bilaterally. Cardio regular rate, regular rhythm, S1 normal heart sound and S2 normal heart sound GI normal to inspection, nondistended, normoactive bowel sounds, soft to palpation, non-tender and non-distended Extremity General Extremity: edema Peripheral Pulses: Yes pulses 2+ throughout Skin Skin Narrative: cyanotic toes bilaterally. Assessment & Plan Assessment/Plan (1) COVID-19: (2) Respiratory failure: QUALIFIERS: Chronicity: acute Respiratory failure complication: hypoxia Qualified Code(s): J96.01 - Acute respiratory failure with hypoxia (3) Seizure: (4) ANAT (acute kidney injury): (5) Laceration of scalp: QUALIFIERS: Encounter type: sequela Qualified Code(s): S01.01XS - Laceration without foreign body of scalp, sequela (6) Diabetes mellitus with hyperglycemia: QUALIFIERS: Diabetes mellitus type: type 2 Diabetes mellitus extermination supervisor insulin use: without extermination supervisor use Qualified Code(s): E11.65 - Type 2 diabetes mellitus with hyperglycemia PLAN: 1. Acute hypoxic and hypercapnic respiratory failure * 2/2 COVID 19 pneumonia +/- pneumonia * on vent. FiO2 increased today due to tachypnea * on vanc and cefepime, dc if cultures wind up negative. * pulm on for vent mgmt 2. Acute COVID 19 pneumonia * unvaccinated * unknown time of onset of Sx, but her brother said she was well Thanksgiving, but stopped posting to social media after Thanksgiving (he does not know, but suspects she may have been ill shortly afterwards) * on dexamethasone * ID following 3. Seizures * new onset * no prior seizure disorder according to her brother (he himself had childhood epilepsy) * etiology unclear at present: COVID 19, anoxic encephalopathy, TBI * cannot rule out status epilepticus * had events before cefepime started * started on levetiracetam * EEG unavailable at present at [facility] * MRI when HDS * needs transfer to tertiary facility for further neurologic evaluation: EEG, in person neurology * 06/07: accepted by [facility]. Given loading dose of levetiracetam 1500 and maintenance of 500 BID * 06/08: may have had another non-tonic clonic event. still awaiting on bed at * 06/09: no new seizure event. since relatively stable, will order MRI Brain * 06/10: possible seizure on the night of the 6th * Pt has been too tenuous to risk additional imaging. Will defer to CCM when timing would be most appropriate. Additional imaging may not change mgmt, unless shows anoxic changes. 4. ANAT * ongoing * avoid IVF given resp failure and COVID 19 * avoid nephrotoxic agents * monitor * nephrology following: suspect ATN 5. Encephalopathy * ongoing * anoxic v metabolic v TBI * needs EEG, which cannot be done here 6. VTE prophylaxis: SCD 7. DM2 * uncontrolled * previously non-insulin dependent * 06/07:insulin glargine 50 BID started * .5: glargine increase to 70 BID * 06/09: glargine increased to 90 BID * 06/10: glargine 110 BID 8. Cyanotic toes * worsening * 2/2 COVID 19 v norepinephrine * norepi dc's * podiatry consult Prognosis guarded to poor. Charges/Coding Visit Charges Inpatient E&M: 37098 Subs Hosp L2
[2021-06-12] MEDS: CHLORHEXIDINE GLUC 2% CLOTH 1 EACH TOWELETTE TOPICAL (17:00)
[2021-06-12] MEDS: Furosemide 100 MG/10 ML Vial 80 MG IV (17:00)
[2021-06-12 17:41] LABS: Bedside Glucose 227 mg/dL (70-110)
[2021-06-12 21:46] LABS: Bedside Glucose 227 mg/dL (70-110)
[2021-06-13] VITALS (31 sets, daily range): BP systolic 81–134; BP diastolic 47–84; PULSE 76–114; RESP 20–45; TEMP 37.6–38.3; O2SAT 76–99
[2021-06-13] MEDS: Propofol 10MG/Ml 1,000 MG/100 ML Bottle 31.8 MG CONT INF ×8 (00:57→22:43)
[2021-06-13 01:10] LABS: Bedside Glucose 217 mg/dL (70-110)
[2021-06-13] MEDS: Insulin Lispro 100 UNIT/ML INSULN.PEN SC (01:25)
[2021-06-13] MEDS: Vital AF 1.2 Cal Liquid 1,000 ML 70 ML GT (02:42)
[2021-06-13 03:59] LABS: Absolute Lymphocyte Count 0.69 X10^3/uL (0.83-4.51); Absolute Neutrophil Count 12.7 X10^3/uL (2.0-7.7); Basophil# 0.01 X10^3/uL; Basophil% 0.1 % (0-1); Eosinophil# 0.09 X10^3/uL; Eosinophils% 0.6 % (0-5); Hematocrit 28.2 % (37-47); Lymphocyte # 0.69 X10^3/ul (0.83-4.51); Lymphocyte % 4.9 % (19-41); Mean Corp Hgb Conc 31.9 g/dL (32-36); Mean Corpuscular Hgb 31.7 pg (27.0-32.0); Mean Corpuscular Volume 99.3 fL (81-99); Mean Platelet Vol. 12.9 fl (6.2-12.0); Monocyte# 0.26 X10^3/uL; Monocyte% 1.8 % (0-10); NRBC Flagged by Analyzer 0 % (0-5); Neutrophil # 12.65 X10^3/uL (2.7-7.7); Neutrophil % 89.4 % (47-70); Platelet Count 153 K/mm3 (150-450); RBC Distribution Width CV 13.3 % (11.6-14.6); RBC Distribution Width SD 47.9 fl (35.1-43.9); Red Blood Count 2.84 M/mm3 (4.2-5.4); White Blood Count 14.2 K/mm3 (4.4-11.0)
[2021-06-13 04:36] LABS: ALB/GLOB Ratio 0.2 RATIO (0.9-2.4); AST(SGOT) 97 U/L (15-37); Alanine Aminotransfer ALT/SGPT 50 U/L (13-56); Albumin, Serum 1.2 g/dL (3.2-5.0); Alkaline Phosphatase 100 U/L (45-117); Anion Gap 13 (5-15); BUN 103 mg/dL (7-18); BUN/Creat Ratio 23.2 RATIO (10-20); Calcium,Total 8.5 mg/dL (8.5-10.1); Chloride 106 mmol/L (98-107); Creatinine, Serum 4.44 mg/dL (0.55-1.02); EST Glomerular Filtration Rate 12 mL/min (>60); Est Glom Filt Rate - Afr Amer 14 mL/min (>60); Estimated Creatinine Clearance 14.11 ml/min; Globulin 4.9 g/dL (2.2-4.2); Glucose 190 mg/dL (74-106); Potassium 4.4 mmol/L (3.5-5.1); Protein, Total 6.1 g/dL (6.4-8.2); Sodium Level 139 mmol/L (136-145)
[2021-06-13 06:20] LABS: Bedside Glucose 142 mg/dL (70-110)
[2021-06-13] MEDS: Menthol/Lanolin/Calamine/Znox 113 GM Tube 1 APPLIC TOPICAL ×3 (06:39→20:17)
--- NOTE | 2021-06-13 07:29 | PN.CC_ITS ---
Assessment & Plan Assessment/Plan (1) Respiratory failure: QUALIFIERS: Chronicity: acute Respiratory failure complication: hypoxia Qualified Code(s): J96.01 - Acute respiratory failure with hypoxia (2) COVID-19: PLAN: RECOMMENDATIONS: 1. Continue patient on assist control mode mechanical ventilation and wean FiO2/PEEP for saturations greater than 90%. 2. Place hemodialysis catheter. Dialysis today per nephrology 3. Continue Decadron as ordered to complete 10 days of therapy. 4. Continue Lantus dosing and continue high intensity sliding scale coverage. 5. Continue fentanyl and propofol for sedation. 6. Continue Keppra as ordered along with as needed Ativan and seizure precautions. 7. Continue tube feeds as tolerated. 8. No further diuretic challenges IMPRESSIONS: 1. Acute combined respiratory failure secondary to COVID-19 pneumonia The patient presented to the hospital with altered mentation and hypoxemia and was intubated in the emergency department, after she failed to respond to noninvasive positive pressure ventilatory support. Further work-up revealed that the patient was positive for COVID-19 pneumonia. The patient will be continued on Decadron to complete 10 days of therapy. Renal function is stable. Defer to infectious disease on initiation of baricitinib given improved renal function. Continue patient on assist control mode of mechanical ventilation and wean FiO2/PEEP for saturations greater than 90%. Continue Lovenox as ordered. Tachypnea likely secondary to compensation for metabolic acidosis associated with problem #2. Continue tube feeds as tolerated. 2. Acute kidney injury/hyperchloremia/hypernatremia Patient with significant elevation in creatinine over the last 24 hours. Hyperchloremia and hypernatremia have resolved. However, patient continues to have elevation in BUN and creatinine. We will place a hemodialysis catheter today and dialyze if okay with nephrology. This may help with patient's tachypnea. 3. Encephalopathy/new onset seizures Appears secondary to acute presentation with COVID-19 pneumonia with associated hypercapnia. On June 06, the patient developed new onset seizure activity. She was placed on as needed Ativan and seizure precautions. Propofol will be preferentially utilized for sedation. Tele-neurology consultation was obtained and the patient was started on Keppra. Unable to perform EEG at the current time. Lower RASS goal for prevention. Awaiting transfer to a tertiary center for over 6 days now. Will increase Keppra dosing given possible seizure activity. No EEG for confirmation 4. Hyperglycemia The patient has known diabetes mellitus, which will be exacerbated by the use of Decadron. Plan to continue the patient's basal insulin regimen today and continue high intensity sliding scale coverage. Much better control 5. Obesity/hyperlipidemia/diabetes mellitus/hypertension Complicates care, management, recovery and prognosis. Hold home antihypertensives. 6. COVID toes Conservative approach. Patient continues to have a pedal pulse, but toes remain cyanotic/blue. Patient developed bulla overnight. Unclear if this is related to the phenomenon called COVID toes or other subsequent insult. Will co nsult podiatry for opinion TIME: 35 minutes of critical care time, independent of procedures, was spent addressing the patient's acute combined respiratory failure secondary to COVID- 19 pneumonia, acute kidney injury, encephalopathy, new onset seizures, hyp erglycemia, review of all data and collaboration with the care team. Subjective Subjective Patient did okay overnight. Patient did have some episodes of disconjugate gaze reported yesterday evening. Night nurse does not report recurrence of disconjugate gaze or active seizure. Patient has required increased FiO2 to maintain saturations. [facility] continues to report no bed availability. Objective Data Objective Data Vital Signs: Vital Signs Temp Pulse Resp BP Pulse Ox 38.0 C H 87 37 H 113/74 92 06/13/21 06:00 06/13/21 07:02 06/13/21 07:02 06/13/21 07:00 06/13/21 07:02 Oxygen Delivery Method Mechanical Ventilator Weight: 112.2 kg Body Mass Index (BMI) 35.3 Intake & Output: Intake and Output for Last 24 Hours 06/11/21 06/12/21 06/13/21 23:59 23:59 23:59 Intake Total 6129.16 / 6170.61 3954.90 / 4101.70 694.76 / 694.76 Output Total 2049 / 2049 1250 / 0 800 / 800 Balance 4079.16 / 4120.61 2704.90 / 2051.70 -105.24 / -105.24 Lab / Micro Data Result Diagrams: 06/13/21 03:30 06/13/21 03:30 Labs: Laboratory Results - last 24 hr 06/12/21 11:01: POC Glucose 190 H 06/12/21 11:45: APTT 26.5 06/12/21 11:45: Sodium 142, Potassium 4.1, Chloride 109 H, Carbon Dioxide 20.0 L , Anion Gap 13, BUN 91 H, Creatinine 3.72 H, Estim Creat Clear Calc 16.84, Est GFR (MDRD) Af Amer 17 L, Est GFR (MDRD) Non-Af 14 L, BUN/Creatinine Ratio 24.5 H , Glucose 199 H, Calcium 8.7, Phosphorus 6.4 H, Magnesium 2.7 H, Total Creatine Kinase 3894 H, Triglycerides 450 H 06/12/21 17:04: POC Glucose 227 H 06/12/21 20:24: POC Glucose 227 H 06/13/21 01:06: POC Glucose 217 H 06/13/21 03:30: Sodium 139, Potassium 4.4, Chloride 106, Carbon Dioxide 20.0 L, Anion Gap 13, BUN 103 H*, Creatinine 4.44 H, Estim Creat Clear Calc 14.11, Est GFR (MDRD) Af Amer 14 L, Est GFR (MDRD) Non-Af 12 L, BUN/Creatinine Ratio 23.2 H , Glucose 190 H, Calcium 8.5, Total Bilirubin 0.30, AST 97 H, ALT 50, Alkaline Phosphatase 100, Total Protein 6.1 L, Albumin 1.2 L, Globulin 4.9 H, Albumin/Globulin Ratio 0.2 L 06/13/21 03:30: WBC 14.2 H, RBC 2.84 L, Hgb 9.0 L, Hct 28.2 L, MCV 99.3 H, MCH 31.7, MCHC 31.9 L, RDW Std Deviation 47.9 H, RDW Coeff of Lencho 13.3, Plt Count 153, MPV 12.9 H, Immature Gran % (Auto) 3.200 H, Neut % (Auto) 89.4 H, Lymph % (Auto) 4.9 L, [place] % (Auto) 1.8, Eos % (Auto) 0.6, Baso % (Auto) 0.1, Absolute Neuts (auto) 12.7 H, Absolute Lymphs (auto) 0.69 L, Nucleated RBC % 0 06/13/21 06:07: POC Glucose 142 H Micro: Microbiology 06/05/21 10:10 Blood Culture (Wb) - Anticubital Right Blood Culture - Final No growth in 5 days. 06/05/21 09:45 Blood Culture (Wb) - Left Wrist Blood Culture - Final No growth in 5 days. 06/05/21 10:10 Urine Catheter - Devries Urine Culture - Final Mixed Gram Positive Organisms Yeast, not Sheree albicans 06/05/21 14:34 Sputum, Induced/Lukens Gram Stain - Final 06/05/21 14:34 Sputum, Induced/Lukens Respiratory Culture - Final Streptococcus group F 06/05/21 10:17 Nasal Secretion SARS-CoV-2 Antigen (Rapid) - Final SARS-CoV-2 (COVID 19) Physical Exam Const Constitutional Narrative: No ventilator dyssynchrony. RASS -4. Anasarca. General Appearance: intubated and patient mechanically ventilated Nutritional Appearance: obese HEENT normocephalic HEENT Narrative: Nonbleeding laceration to left temporal region Mouth: endotracheal tube in place and OG tube in place Eyes PERRL and conjunctivae normal Neck supple General: trachea midline and CVC in place Chest inspection of chest normal Resp Effort and Inspection: tachypneic Auscultation: diminished lung sounds; Negative for rales, rhonchi or wheezes Cardio regular rate, regular rhythm and no murmurs GI normal to inspection, nondistended, normoactive bowel sounds Extremity Extremity Narrative: Cool to the touch. Some gangrenous of the toes. Still with pedal pulse General Extremity: cyanosis and edema; Negative for clubbing Skin Skin Narrative: Forearm hematoma. Bulla formation noted on toes. Neuro Neuro Narrative: No disconjugate gaze noted. Not following commands. Sensorium / Orientation: sedated on vent Charges/Coding Procedures Hospitalists Procedures: 50212 Critial Care 1st Hr
--- NOTE | 2021-06-13 08:21 | NURSING ---
0820 Mihai Herman [employer] present pt room, prep TDC placement HR 95 R 39 BP 100/60 (72) SpO2 90 0825 HR 92 R 39 BP 101/58 71 SpO2 90 0830 HR 93 R 38 BP 104/61 73 SpO2 90 procedure begun 0833 wire down, rare PAC 0835 HR 98 R 40 BP 104/62 74 SpO2 89 wire out 0836 hep 1000/ml 1.3cc each port
[2021-06-13] MEDS: Chlorhexidine 15 ML PO ×2 (08:30→20:17)
[2021-06-13] MEDS: Heparin 10,000 UNITS/10 ML Vial 1300 UNITS IV (08:30)
[2021-06-13] MEDS: Lidocaine 2% 100 MG/5 ML Syringe 40 MG IV BOLUS (08:30)
[2021-06-13] MEDS: Acetaminophen 650 MG/20 ML UDC GT (08:45)
--- NOTE | 2021-06-13 08:47 | RAD_ITS ---
STUDY: X-RAY CHEST REASON FOR EXAM: Female, 45 years old. Temporary dialysis catheter placement. TECHNIQUE: Single AP portable view of the chest. COMPARISON: Comparison is made with prior examination dated 06/08/2021. FINDINGS: An endotracheal tube is in situ. The tip is at 4.2 cm proximal to the khoi. A right-sided internal jugular venous catheter is seen with the tip at the junction of the superior vena cava and right atrium. A left-sided temporary dialysis catheter has been placed with the tip in the midportion of the superior vena cava. EKG likely are seen. Persistent diffuse bilateral pulmonary infiltrates. Infiltrates in the left lung have progressed as compared to prior study. There is no demonstrated pleural abnormality. Normal size heart. Normal mediastinum and brooke. Normal visualized pulmonary arteries. Normal visualized aortic arch and descending thoracic aorta. There are degenerative changes of the visualized thoracic spine. Normal visualized ribs, clavicles, and shoulders. There is no demonstrated abnormality of the visualized soft tissue structures of the upper abdomen. RAD/CXR for Line Placement IMPRESSION: Progressive infiltrates in the left hemithorax. All the support tubes are in good position. Electronically Signed: Quirino Khan MD at 13:02 EST , Service support ,
--- NOTE | 2021-06-13 08:54 | PCM.OP.BLANK ---
Operative Report Date of Procedure: 06/13/21 Temporary hemodialysis catheter placement procedure note Indication: Hemodialysis Procedure: A time-out was completed to verify correct patient, indication, medication allergies, procedure, coagulation studies, informed consent signed, and equipment needed. The patient was placed in the supine position for a central line placement to the left IJ vein. The patients left neck was prepped using chlorhexidine and a full body sterile drape was applied. 1% lidocaine was used to anesthetize the surrounding skin. A 12fr 16 cm temporary hemodialysis catheter introduced into the internal jugular vein using the modified Seldinger technique with the assistance of ultrasound. The site was dilated up twice in a stepwise fashion. The catheter was threaded smoothly over the guidewire, the guidewire was removed easily, nonpulsatile blood returned. All ports were aspirated of air and flushed with sterile saline and then locked with you 1000 heparin 1.3 cc to each port. The catheter was sutured in place and covered with an occlusive dressing impregnated with chlorhexidine. Post-procedure: The patient tolerated the procedure well. Vital signs remained stable. EBL 5 cc. No complications. Chest X Ray ordered to confirm tip placement and the absence of pneumothorax. Procedures Hospitalists Procedures: 51897 Insert Non-tunnel CV Cath
--- NOTE | 2021-06-13 10:18 | PN.HOSP_ITS ---
Subjective Subjective Cyanotic toe turning black distally. No purposeful movement, but does move when agitated. Objective Data Objective Data Vital Signs: Vital Signs Temp Pulse Resp BP Pulse Ox 38.0 C H 87 37 H 113/74 92 06/13/21 06:00 06/13/21 07:02 06/13/21 07:02 06/13/21 07:00 06/13/21 07:02 Oxygen Delivery Method Mechanical Ventilator Weight: 112.2 kg Body Mass Index (BMI) 35.3 Intake & Output: Intake and Output for Last 24 Hours 06/11/21 06/12/21 06/13/21 23:59 23:59 23:59 Intake Total 6129.16 / 6170.61 3954.90 / 4101.70 694.76 / 694.76 Output Total 2049 / 2049 1250 / 0 800 / 800 Balance 4079.16 / 4120.61 2704.90 / 2051.70 -105.24 / -105.24 Lab / Micro Data Result Diagrams: 06/13/21 03:30 06/13/21 03:30 Labs: Laboratory Results - last 24 hr 06/12/21 11:01: POC Glucose 190 H 06/12/21 11:45: APTT 26.5 06/12/21 11:45: Sodium 142, Potassium 4.1, Chloride 109 H, Carbon Dioxide 20.0 L , Anion Gap 13, BUN 91 H, Creatinine 3.72 H, Estim Creat Clear Calc 16.84, Est G FR (MDRD) Af Amer 17 L, Est GFR (MDRD) Non-Af 14 L, BUN/Creatinine Ratio 24.5 H, Glucose 199 H, Calcium 8.7, Phosphorus 6.4 H, Magnesium 2.7 H, Total Creatine Kinase 3894 H, Triglycerides 450 H 06/12/21 17:04: POC Glucose 227 H 06/12/21 20:24: POC Glucose 227 H 06/13/21 01:06: POC Glucose 217 H 06/13/21 03:30: Sodium 139, Potassium 4.4, Chloride 106, Carbon Dioxide 20.0 L, Anion Gap 13, BUN 103 H*, Creatinine 4.44 H, Estim Creat Clear Calc 14.11, Est GFR (MDRD) Af Amer 14 L, Est GFR (MDRD) Non-Af 12 L, BUN/Creatinine Ratio 23.2 H , Glucose 190 H, Calcium 8.5, Total Bilirubin 0.30, AST 97 H, ALT 50, Alkaline Phosphatase 100, Total Protein 6.1 L, Albumin 1.2 L, Globulin 4.9 H, Albumin/Globulin Ratio 0.2 L 06/13/21 03:30: WBC 14.2 H, RBC 2.84 L, Hgb 9.0 L, Hct 28.2 L, MCV 99.3 H, MCH 31.7, MCHC 31.9 L, RDW Std Deviation 47.9 H, RDW Coeff of Lencho 13.3, Plt Count 153, MPV 12.9 H, Immature Gran % (Auto) 3.200 H, Neut % (Auto) 89.4 H, Lymph % (Auto) 4.9 L, [place] % (Auto) 1.8, Eos % (Auto) 0.6, Baso % (Auto) 0.1, Absolute Neuts (auto) 12.7 H, Absolute Lymphs (auto) 0.69 L, Nucleated RBC % 0 06/13/21 06:07: POC Glucose 142 H Micro: Microbiology 06/05/21 10:10 Blood Culture (Wb) - Anticubital Right Blood Culture - Final No growth in 5 days. 06/05/21 09:45 Blood Culture (Wb) - Left Wrist Blood Culture - Final No growth in 5 days. 06/05/21 10:10 Urine Catheter - Devries Urine Culture - Final Mixed Gram Positive Organisms Yeast, not Sheree albicans 06/05/21 14:34 Sputum, Induced/Lukens Gram Stain - Final 06/05/21 14:34 Sputum, Induced/Lukens Respiratory Culture - Final Streptococcus group F 06/05/21 10:17 Nasal Secretion SARS-CoV-2 Antigen (Rapid) - Final SARS-CoV-2 (COVID 19) Physical Exam Const alert and no apparent distress Resp normal respiratory effort, no retractions, no use of accessory muscles and clear to auscultation bilaterally Cardio regular rate, regular rhythm, S1 normal heart sound and S2 normal heart sound GI normal to inspection, nondistended, normoactive bowel sounds, soft to palpation, non-tender and non-distended Assessment & Plan Assessment/Plan (1) COVID-19: (2) Respiratory failure: QUALIFIERS: Chronicity: acute Respiratory failure complication: hypoxia Qualified Code(s): J96.01 - Acute respiratory failure with hypoxia (3) Seizure: (4) ANAT (acute kidney injury): (5) Laceration of scalp: QUALIFIERS: Encounter type: sequela Qualified Code(s): S01.01XS - Laceration without foreign body of scalp, sequela (6) Diabetes mellitus with hyperglycemia: QUALIFIERS: Diabetes mellitus type: type 2 Diabetes mellitus board finisher insulin use: without correction use Qualified Code(s): E11.65 - Type 2 diabetes mellitus with hyperglycemia PLAN: 1. Acute hypoxic and hypercapnic respiratory failure * 2/2 COVID 19 pneumonia +/- pneumonia * on vent. FiO2 increased today due to tachypnea * on vanc and cefepime, dc if cultures wind up negative. * pulm on for vent mgmt 2. Acute COVID 19 pneumonia * unvaccinated * unknown time of onset of Sx, but her brother said she was well Thanksgiving, but stopped posting to social media after Thanksgiving (he does not know, but suspects she may have been ill shortly afterwards) * on dexamethasone * ID following 3. Seizures * new onset * no prior seizure disorder according to her brother (he himself had childhood epilepsy) * etiology unclear at present: COVID 19, anoxic encephalopathy, TBI * cannot rule out status epilepticus * had events before cefepime started * started on levetiracetam * EEG unavailable at present at [facility] * MRI when HDS * needs transfer to tertiary facility for further neurologic evaluation: EEG, in person neurology * 06/07: accepted by [facility]. Given loading dose of levetiracetam 1500 and maintenance of 500 BID * 06/08: may have had another non-tonic clonic event. still awaiting on bed at * 06/09: no new seizure event. since relatively stable, will order MRI Brain * 06/10: possible seizure on the night of the * Pt has been too tenuous to risk additional imaging. Will try to get CT if can tolerate. Holding off on MRI given tenuous status. * Previous CT unremarkable. But if worse, (anoxic changes) may be a point to discuss with family about reassessing goals of care. 4. ANAT * ongoing * avoid IVF given resp failure and COVID 19 * avoid nephrotoxic agents * monitor * nephrology following: suspect ATN * plan for HD. 5. Encephalopathy * ongoing * anoxic v metabolic v TBI * needs EEG, which cannot be done here 6. VTE prophylaxis: SCD 7. DM2 * uncontrolled * previously non-insulin dependent * 06/07:insulin glargine 50 BID started * .5: glargine increase to 70 BID * 06/09: glargine increased to 90 BID * 06/10: glargine 110 BID 8. Cyanotic toes * worsening * 2/2 COVID 19 v norepinephrine * norepi dc's * podiatry following. Prognosis guarded to poor. Charges/Coding Visit Charges Inpatient E&M: 30829 Subs Hosp L2
[2021-06-13] MEDS: Furosemide 100 MG/10 ML Vial 80 MG IV ×2 (11:17→18:39)
[2021-06-13] MEDS: Nystatin Powder 15gm Bottle 1 APPLIC TOPICAL ×2 (11:18→20:17)
[2021-06-13] MEDS: dexAMETHasone 4 MG/ML Vial 6 MG IV (11:18)
[2021-06-13] MEDS: 0.9% Saline Lock 10 ML Syringe IV (11:23)
[2021-06-13 12:15] LABS: Bedside Glucose 146 mg/dL (70-110)
--- NOTE | 2021-06-13 12:56 | CT_ITS ---
STUDY: CT BRAIN WITHOUT CONTRAST REASON FOR EXAM: Female, 45 years old. Neuro changes RADIATION DOSAGE (If Supplied By Facility): CTDIvol = ( 44.99 ) mGy, DLP = ( 779.24 ) mGycm TECHNIQUE: Transaxial CT imaging of the brain was performed without administration of intravenous contrast material. Individualized dose optimization techniques were used for this CT. COMPARISON: Comparison is made with prior study dated 06/06/2021. FINDINGS: Normal soft tissue structures. Normal calvarium. Normal size ventricles and extra-axial spaces for the patient''s age. Normal white matter tracts of the cerebral hemispheres. Normal basal ganglia and thalami. Normal brainstem. Normal cerebellum. There is no intracranial hemorrhage. There are no findings of an acute ischemic infarction. Partial opacification of the sphenoid sinus. Opacification of the ethmoid sinuses. Mucosal thickening of the maxillary sinuses slightly more prominent right side. CT/Brain/Head without Contrast IMPRESSION: Sinusitis. Electronically Signed: Quirino Khan MD at 14:24 EST , Service support ,
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
--- NOTE | 2021-06-13 13:43 | PN.RENAL_ITS ---
Subjective Subjective Events noted Objective Data Objective Data Vital Signs: Vital Signs Temp Pulse Resp BP Pulse Ox 100.4 F H 99 42 H 113/74 93 06/13/21 06:00 06/13/21 10:19 06/13/21 10:19 06/13/21 07:00 06/13/21 10:19 Oxygen Delivery Method Mechanical Ventilator Weight: 112.2 kg Body Mass Index (BMI) 35.3 Intake & Output: Intake and Output for Last 24 Hours 06/11/21 06/12/21 06/13/21 23:59 23:59 23:59 Intake Total 6129.16 / 6170.61 3954.90 / 4101.70 2796.48 / 2796.48 Output Total 2049 / 2049 1250 / 2049 1300 / 1300 Balance 4079.16 / 4120.61 2704.90 / 2051.70 1496.48 / 1496.48 Lab / Micro Data Result Diagrams: 06/13/21 03:30 06/13/21 03:30 Labs: Laboratory Results - last 24 hr 06/12/21 17:04: POC Glucose 227 H 06/12/21 20:24: POC Glucose 227 H 06/13/21 01:06: POC Glucose 217 H 06/13/21 03:30: Sodium 139, Potassium 4.4, Chloride 106, Carbon Dioxide 20.0 L, Anion Gap 13, BUN 103 H*, Creatinine 4.44 H, Estim Creat Clear Calc 14.11, Est GFR (MDRD) Af Amer 14 L, Est GFR (MDRD) Non-Af 12 L, BUN/Creatinine Ratio 23.2 H , Glucose 190 H, Calcium 8.5, Total Bilirubin 0.30, AST 97 H, ALT 50, Alkaline Phosphatase 100, Total Protein 6.1 L, Albumin 1.2 L, Globulin 4.9 H, Albumin/Globulin Ratio 0.2 L 06/13/21 03:30: WBC 14.2 H, RBC 2.84 L, Hgb 9.0 L, Hct 28.2 L, MCV 99.3 H, MCH 31.7, MCHC 31.9 L, RDW Std Deviation 47.9 H, RDW Coeff of Lencho 13.3, Plt Count 153, MPV 12.9 H, Immature Gran % (Auto) 3.200 H, Neut % (Auto) 89.4 H, Lymph % (Auto) 4.9 L, Stokes % (Auto) 1.8, Eos % (Auto) 0.6, Baso % (Auto) 0.1, Absolute Neuts (auto) 12.7 H, Absolute Lymphs (auto) 0.69 L, Nucleated RBC % 0 06/13/21 06:07: POC Glucose 142 H 06/13/21 11:29: POC Glucose 146 H Micro: Microbiology 06/05/21 10:10 Blood Culture (Wb) - Anticubital Right Blood Culture - Final No growth in 5 days. 06/05/21 09:45 Blood Culture (Wb) - Left Wrist Blood Culture - Final No growth in 5 days. 06/05/21 10:10 Urine Catheter - Devries Urine Culture - Final Mixed Gram Positive Organisms Yeast, not Sheree albicans 06/05/21 14:34 Sputum, Induced/Lukens Gram Stain - Final 06/05/21 14:34 Sputum, Induced/Lukens Respiratory Culture - Final Streptococcus group F 06/05/21 10:17 Nasal Secretion SARS-CoV-2 Antigen (Rapid) - Final SARS-CoV-2 (COVID 19) Radiography Diagnostic Testing: Radiology Impression Chest X-Ray 06/13/21 08:47 IMPRESSION: Progressive infiltrates in the left hemithorax. All the support tubes are in good position. Electronically Signed: Quirino Khan MD at 13:02 EST , Service support , Physical Exam Narrative Exam minimized due to Covid. Discussed with ICU attending. Assessment & Plan Assessment/Plan (1) ANAT (acute kidney injury): PLAN: due to ATN. Creatinine has been worsening. Urine output is lower than before. Other events include severe Covid pneumonia, ARDS Possible seizures. There is no clear way to diagnose frequency and duration of seizures here, hence she is on a transfer list to a tertiary care center. Unfortunately bed situation is critical. She is on empiric antiepileptics. CK levels are almost 4000, likely reflective of ongoing seizures. She really needs to go to a tertiary care center where she can have continuous EEG. due to advanced azotemia will start HD today. dw ICU attending. line to be placed today and start HD.
[2021-06-13] MEDS: Sodium Bicarbonate 8.4% 50 ML Syringe 50 MEQ IV (13:50)
--- NOTE | 2021-06-13 14:40 | RAD_ITS ---
STUDY: X-RAY CHEST REASON FOR EXAM: Female, 45 years old. ET tube placement TECHNIQUE: Single AP portable view of the chest. COMPARISON: Comparison is made with prior study done earlier today. FINDINGS: An endotracheal tube is in situ. The tip is at 3.1 cm proximal to the khoi. All the support tubes are in good position and unchanged. Persistent bilateral pulmonary infiltrates. RAD/Chest 1 View (Portable) IMPRESSION: The tip of the endotracheal tube is at 3.1 cm proximally khoi. Stable bilateral pulmonary infiltrates. Electronically Signed: Quirino Khan MD at 15:00 EST , Service support ,
[2021-06-13] MEDS: Vital High Protein 1,000 ML 45 ML GT (18:35)
[2021-06-13 18:51] LABS: Bedside Glucose 151 mg/dL (70-110)
--- NOTE | 2021-06-13 19:10 | NURSING ---
on MAR shows propofol infused, however bottle not fully infused
--- NOTE | 2021-06-13 21:04 | PCM.PROGNOTE ---
Subjective Subjective Patient was seen today for follow up on bilateral feet. She remains intubated. She continues to have seizures, and also starting dialysis. Objective Data Objective Data Vital Signs: Vital Signs Temp Pulse Resp BP Pulse Ox 100.7 F H 90 35 H 117/67 95 06/13/21 13:00 06/13/21 20:35 06/13/21 20:35 06/13/21 19:00 06/13/21 20:35 Oxygen Delivery Method Mechanical Ventilator Weight: 112.2 kg Body Mass Index (BMI) 35.3 Intake & Output: Intake and Output for Last 24 Hours 06/11/21 06/12/21 06/13/21 23:59 23:59 23:59 Intake Total 6129.16 / 6170.61 3954.90 / 4101.70 3426.01 / 3426.01 Output Total 2049 / 2049 1250 / 0 1750 / 1750 Balance 4079.16 / 4120.61 2704.90 / 2051.70 1676.01 / 1676.01 Lab / Micro Data Result Diagrams: 06/13/21 03:30 06/13/21 03:30 Labs: Laboratory Results - last 24 hr 06/12/21 20:24: POC Glucose 227 H 06/13/21 01:06: POC Glucose 217 H 06/13/21 03:30: Sodium 139, Potassium 4.4, Chloride 106, Carbon Dioxide 20.0 L, Anion Gap 13, BUN 103 H*, Creatinine 4.44 H, Estim Creat Clear Calc 14.11, Est GFR (MDRD) Af Amer 14 L, Est GFR (MDRD) Non-Af 12 L, BUN/Creatinine Ratio 23.2 H, Glucose 190 H, Calcium 8.5, Total Bilirubin 0.30, AST 97 H, ALT 50, Alkaline Phosphatase 100, Total Protein 6.1 L, Albumin 1.2 L, Globulin 4.9 H, Albumin/Globulin Ratio 0.2 L 06/13/21 03:30: WBC 14.2 H, RBC 2.84 L, Hgb 9.0 L, Hct 28.2 L, MCV 99.3 H, MCH 31.7, MCHC 31.9 L, RDW Std Deviation 47.9 H, RDW Coeff of Lencho 13.3, Plt Count 153, MPV 12.9 H, Immature Gran % (Auto) 3.200 H, Neut % (Auto) 89.4 H, Lymph % (Auto) 4.9 L, [place] % (Auto) 1.8, Eos % (Auto) 0.6, Baso % (Auto) 0.1, Absolute Neuts (auto) 12.7 H, Absolute Lymphs (auto) 0.69 L, Nucleated RBC % 0 06/13/21 06:07: POC Glucose 142 H 06/13/21 11:29: POC Glucose 146 H 06/13/21 18:47: POC Glucose 151 H Micro: Microbiology 06/05/21 10:10 Blood Culture (Wb) - Anticubital Right Blood Culture - Final No growth in 5 days. 06/05/21 09:45 Blood Culture (Wb) - Left Wrist Blood Culture - Final No growth in 5 days. 06/05/21 10:10 Urine Catheter - Devries Urine Culture - Final Mixed Gram Positive Organisms Yeast, not Sheree albicans 06/05/21 14:34 Sputum, Induced/Lukens Gram Stain - Final 06/05/21 14:34 Sputum, Induced/Lukens Respiratory Culture - Final Streptococcus group F 06/05/21 10:17 Nasal Secretion SARS-CoV-2 Antigen (Rapid) - Final SARS-CoV-2 (COVID 19) Radiography Diagnostic Testing: Radiology Impression Chest X-Ray 06/13/21 08:47 IMPRESSION: Progressive infiltrates in the left hemithorax. All the support tubes are in good position. Electronically Signed: Quirino Khan MD at 13:02 EST , Service support , Brain CT 06/13/21 12:56 IMPRESSION: Sinusitis. Electronically Signed: Quirino Khan MD at 14:24 EST , Service support , Chest X-Ray 06/13/21 14:40 IMPRESSION: The tip of the endotracheal tube is at 3.1 cm proximally khoi. Stable bilateral pulmonary infiltrates. Electronically Signed: Quirino Khan MD at 15:00 EST , Service support , Physical Exam Const General Appearance: intubated Extremity Extremity Narrative: There is stable cyanosis and gangrenous changes to the majority of the toes bilateral, there is superficial bulla noted to the left dorsal forefoot, roof intact, there is no erythema, no cellulitis, no fluctuance, no crepitus, no visible abscess bilateral. Toes are cool to touch bilateral, rest of foot normal temperature, there is some edema to the foot/ankle bilateral. No evidence of DVT bilateral. No evidence of infection bilateral foot. DP and PT pulses easily palpable bilateral foot. No evidence of charcot neuroarthropathy, no evidence of compartment syndrome bilateral foot. No significant deformity to foot bilateral. Sensation unable to be assessed. Assessment & Plan Assessment/Plan (1) Black toe: PLAN: Re-evaluation performed. 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 This is likely from COVID and norepinephrine, there are no signs of infection, pedal pulses easily palpable bilateral foot. She will likely require an amputation of at least the forefoot in the future. Continue to monitor pedal pulses, and let demarcate. Anticoagulate if possible. Discussed with Dr. Hunter. (2) COVID-19: (3) Diabetes mellitus with hyperglycemia: QUALIFIERS: Diabetes mellitus group home insulin use: without emt intermediate use Diabetes mellitus type: type 2 Qualified Code(s): E11.65 - Type 2 diabetes mellitus with hyperglycemia
[2021-06-13 21:16] LABS: Vancomycin, Random Level 5.8 ug/mL (0.0-15.0)
[2021-06-13 21:17] LABS: BNP,B-Type NATRIURETIC PEPTIDE 185.9 pg/mL (0-100)
[2021-06-13 21:34] LABS: D-Dimer Quantitative (DVT/PE) > 20.00 FEU/ug/m (0.27-0.49)
[2021-06-13 22:16] LABS: Hepatitis B Surface Antigen Non-Reactive (Nonreactive); Procalcitonin 1.77 ng/mL (0.00-0.09)
[2021-06-14] VITALS (35 sets, daily range): BP systolic 91–132; BP diastolic 54–84; PULSE 77–117; RESP 24–48; TEMP 37.7–38.8; O2SAT 80–96
--- NOTE | 2021-06-14 00:42 | PCM.PN.BLA ---
Progress Note Notify the D-dimer is more than 20. Patient previously was on Lovenox but was discontinued. Review of podiatry notes stated it is okay to anticoagulate.
--- NOTE | 2021-06-14 00:58 | PCM.RX.CS ---
Consult Pharmacy has been consulted to manage selected antiobiotic: Vancomycin Type of Consult: New start Suspected Infection: Other Labs: Sodium 139 mmol/L (136-145) 06/13/21 03:30 Potassium 4.4 mmol/L (3.5-5.1) 06/13/21 03:30 Chloride 106 mmol/L (98-107) 06/13/21 03:30 Carbon Dioxide 20.0 mmol/L (21.0-32.0) L 06/13/21 03:30 Anion Gap 13 (5-15) 06/13/21 03:30 BUN 103 mg/dL (7-18) H* 06/13/21 03:30 Creatinine 4.44 mg/dL (0.55-1.02) H 06/13/21 03:30 Est GFR (MDRD) Af Amer 14 mL/min (>60) L 06/13/21 03:30 Est GFR (MDRD) Non-Af 12 mL/min (>60) L 06/13/21 03:30 BUN/Creatinine Ratio 23.2 RATIO (10-20) H 06/13/21 03:30 Glucose 190 mg/dL (74-106) H 06/13/21 03:30 Vancomycin Trough 15.9 ug/mL (5.0-15.0) H 06/08/21 08:15 Random Vancomycin 5.8 ug/mL (0.0-15.0) 06/13/21 20:30 Microbiology: Microbiology 06/05/21 10:10 Blood Culture (Wb) - Anticubital Right Blood Culture - Final No growth in 5 days. 06/05/21 09:45 Blood Culture (Wb) - Left Wrist Blood Culture - Final No growth in 5 days. 06/05/21 10:10 Urine Catheter - Devries Urine Culture - Final Mixed Gram Positive Organisms Yeast, not Sheree albicans 06/05/21 14:34 Sputum, Induced/Lukens Gram Stain - Final 06/05/21 14:34 Sputum, Induced/Lukens Respiratory Culture - Final Streptococcus group F 06/05/21 10:17 Nasal Secretion SARS-CoV-2 Antigen (Rapid) - Final SARS-CoV-2 (COVID 19) Weight used for dosin kg Estimated Creatinine Clearance: 14 Goal Trough: 15-20 mcg/mL Pharmacy Plan for Drug Dosing: Vancomycin was started with a dose of 1500mg. Pt had previously been on vancomycin, and the random level drawn was 5.8. Since this was roughly ? of the target range, the 1500mg initial dose was chosen since it was ? less than the calculated loading dose of 2000mg. Further dosing will be determined by the dialysis schedule. Pharmacy Service will continue to monitor and adjust dosing as required.
--- NOTE | 2021-06-14 02:16 | DIALYSIS ---
Hemodialysis x 2hrs. UF -2000mL removed. Pt tolerated tx Report to Christine Bucio Pt stable
[2021-06-14] MEDS: Propofol 10MG/Ml 1,000 MG/100 ML Bottle 31.8 MG CONT INF ×8 (03:05→23:00)
--- NOTE | 2021-06-14 04:09 | PCM.PN.BLA ---
Progress Note Heparin drip was ordered but not started. Nurse reports increased petechiae on patient's skin. Advised nurse not to start heparin drip. Heparin drip will be discontinued. We will get ultrasound of bilateral lower extremities.
[2021-06-14 04:20] LABS: Hematocrit 28.1 % (37-47); Hemoglobin 8.8 g/dL (12.0-15.0); Mean Corp Hgb Conc 31.3 g/dL (32-36); Mean Corpuscular Hgb 30.6 pg (27.0-32.0); Mean Corpuscular Volume 97.6 fL (81-99); Mean Platelet Vol. 11.8 fl (6.2-12.0); POSITIVE COUNT YES; POSITIVE MORPHOLOGY YES; Platelet Count 207 K/mm3 (150-450); RBC Distribution Width CV 13.4 % (11.6-14.6); RBC Distribution Width SD 48.6 fl (35.1-43.9); Red Blood Count 2.88 M/mm3 (4.2-5.4); White Blood Count 13.7 K/mm3 (4.4-11.0)
[2021-06-14 04:42] LABS: Partial Thromboplast Time 27.2 Seconds (24.1-36.2)
[2021-06-14 05:00] LABS: ALB/GLOB Ratio 0.2 RATIO (0.9-2.4); AST(SGOT) 71 U/L (15-37); Alanine Aminotransfer ALT/SGPT 46 U/L (13-56); Albumin, Serum 1.3 g/dL (3.2-5.0); Alkaline Phosphatase 111 U/L (45-117); Anion Gap 14 (5-15); BUN 96 mg/dL (7-18); BUN/Creat Ratio 21.1 RATIO (10-20); Calcium,Total 7.9 mg/dL (8.5-10.1); Chloride 103 mmol/L (98-107); Creatinine, Serum 4.56 mg/dL (0.55-1.02); Differential Indicated MANUAL DIFF; EST Glomerular Filtration Rate 11 mL/min (>60); Est Glom Filt Rate - Afr Amer 14 mL/min (>60); Estimated Creatinine Clearance 13.74 ml/min; Globulin 5.3 g/dL (2.2-4.2); Glucose 86 mg/dL (74-106); Potassium 4.1 mmol/L (3.5-5.1); Protein, Total 6.6 g/dL (6.4-8.2); Sodium Level 138 mmol/L (136-145)
[2021-06-14] MEDS: Menthol/Lanolin/Calamine/Znox 113 GM Tube 1 APPLIC TOPICAL ×3 (05:06→22:02)
[2021-06-14] MEDS: Dextrose 50%-Water 25 GM/50 ML DISP.SYRIN IV (05:45)
[2021-06-14] MEDS: Acetaminophen 650 MG/20 ML UDC GT ×2 (05:48→14:01)
[2021-06-14 06:11] LABS: Bedside Glucose 62 mg/dL (70-110)
[2021-06-14 06:11] LABS: Bedside Glucose 135 mg/dL (70-110)
[2021-06-14 06:11] LABS: Bedside Glucose 110 mg/dL (70-110)
[2021-06-14 06:26] LABS: Total Cells Counted 100 (MANUAL DIFF)
[2021-06-14 06:28] LABS: Eosinophil 2 % (0-5); Lymphocyte 8 % (19-41); Monocyte 1 % (0-10); Myelocyte 2 % (0-0); Neutrophil-Band 6 % (0-5); Neutrophil-Segmented 81 % (47-70); Platelet Estimate ADEQUATE (ADEQ); Red Cell Morphology NORM C+C NORMAL (NORM C&C)
[2021-06-14 06:29] LABS: Absolute Lymphocyte Count 1.09 X10^3/uL (0.83-4.51); Absolute Neutrophil Count 11.9 X10^3/uL (2.0-7.7); Lymphocyte # 1.09 X10^3/ul (0.83-4.51)
--- NOTE | 2021-06-14 07:29 | PN.CC_ITS ---
Assessment & Plan Assessment/Plan (1) Respiratory failure: QUALIFIERS: Chronicity: acute Respiratory failure complication: hypoxia Qualified Code(s): J96.01 - Acute respiratory failure with hypoxia (2) COVID-19: PLAN: RECOMMENDATIONS: 1. Continue patient on assist control mode mechanical ventilation and wean FiO2/PEEP for saturations greater than 90%. 2. Continue dialysis per nephrology. Patient would benefit from volume removal 3. Continue Decadron as ordered to complete 10 days of therapy. 4. Continue Lantus dosing and continue high intensity sliding scale coverage. 5. Continue fentanyl and propofol for sedation. 6. Continue Keppra as ordered along with as needed Ativan and seizure precautions. 7. Continue tube feeds as tolerated. 8. Initiate heparin drip IMPRESSIONS: 1. Acute combined respiratory failure secondary to COVID-19 pneumonia The patient presented to the hospital with altered mentation and hypoxemia and was intubated in the emergency department, after she failed to respond to noninvasive positive pressure ventilatory support. Further work-up revealed that the patient was positive for COVID-19 pneumonia. The patient will be continued on Decadron to complete 10 days of therapy. Renal function is stable. Defer to infectious disease on initiation of baricitinib given improved renal function. Continue patient on assist control mode of mechanical ventilation and wean FiO2/PEEP for saturations greater than 90%. Tachypnea likely secondary to compensation for metabolic acidosis associated with problem #2. Continue tube feeds as tolerated. Patient would likely benefit from volume removal associated with hemodialysis 2. Acute kidney injury/hyperchloremia/hypernatremia Patient with significant elevation in creatinine over the last 24 hours. Hyperchloremia and hypernatremia have resolved. However, patient continues to have elevation in BUN and creatinine. Patient appeared to respond well to dialysis yesterday. This may help with patient's tachypnea. 3. Encephalopathy/new onset seizures Appears secondary to acute presentation with COVID-19 pneumonia with associated hypercapnia. On June 06, the patient developed new onset seizure activity. She was placed on as needed Ativan and seizure precautions. Propofol will be preferentially utilized for sedation. Tele-neurology consultation was obtained and the patient was started on Keppra. Unable to perform EEG at the current time. EEG completed yesterday. Formal interpretation is still pending. If this shows no seizure activity, may attempt to lighten sedation. 4. Hyperglycemia The patient has known diabetes mellitus, which will be exacerbated by the use of Decadron. Patient with hypoglycemia overnight. Clinical suspicion for an element of clearance by hemodialysis. Will decrease Lantus dosing 5. Obesity/hyperlipidemia/diabetes mellitus/hypertension Complicates care, management, recovery and prognosis. Hold home antihypertensives. 6. Gangrenous toes Conservative approach. Patient continues to have a pedal pulse, but toes remain cyanotic/blue. Patient developed bulla, but changes have been stable from my perspective. Podiatry is recommending anticoagulation. Given severity of illness, will start with a heparin drip. Monitor for hematuria TIME: 34 minutes of critical care time, independent of procedures, was spent addressing the patient's acute combined respiratory failure secondary to COVID- 19 pneumonia, acute kidney injury, encephalopathy, new onset seizures, hyperglycemia, review of all data and collaboration with the care team. Subjective Subjective Patient did okay overnight. Patient did have a hemodialysis catheter placed yesterday. Patient subsequently had hemodialysis with 2 L removed. Patient's respiratory rate did improve following hemodialysis. Patient did not require any pressors to facilitate volume removal. Nursing did report mild hematuria. Patient did have a lower blood sugar this morning requiring treatment. Objective Data Objective Data Vital Signs: Vital Signs Temp Pulse Resp BP Pulse Ox 38.2 C H 98 36 H 103/58 L 91 06/14/21 07:00 06/14/21 07:06 06/14/21 07:06 06/14/21 07:00 06/14/21 07:06 Oxygen Delivery Method Mechanical Ventilator Weight: 111.1 kg Body Mass Index (BMI) 35.3 Intake & Output: Intake and Output for Last 24 Hours 06/12/21 06/13/21 06/14/21 23:59 23:59 23:59 Intake Total 3954.90 / 4101.70 3808.02 / 3959.82 1152.00 / 1152.00 Output Total 1250 / 2050 1750 / 2050 800 / 800 Balance 2704.90 / 2051.70 2058.02 / 1909.82 352.00 / 352.00 Lab / Micro Data Result Diagrams: 06/14/21 03:40 06/14/21 03:40 Labs: Laboratory Results - last 24 hr 06/13/21 11:29: POC Glucose 146 H 06/13/21 18:47: POC Glucose 151 H 06/13/21 20:13: POC Glucose 135 H 06/13/21 20:30: Procalcitonin 1.77 H, Hep Bs Antigen Non-Reactive 06/13/21 20:30: D-Dimer Quant (PE/DVT) > 20.00 H* 06/13/21 20:30: B-Natriuretic Peptide 185.9 H 06/13/21 20:30: Random Vancomycin 5.8 06/14/21 00:06: POC Glucose 110 06/14/21 03:40: WBC 13.7 H, RBC 2.88 L, Hgb 8.8 L, Hct 28.1 L, MCV 97.6, MCH 30.6, MCHC 31.3 L, RDW Std Deviation 48.6 H, RDW Coeff of Lencho 13.4, Plt Count 207, MPV 11.8, Neut % (Auto) Not Reportable, Absolute Neuts (auto) 11.9 H, Absolute Lymphs (auto) 1.09, Total Counted 100, Neutrophils % (Manual) 81 H, Band Neutrophils % 6 H, Lymphocytes % (Manual) 8 L, Monocytes % (Manual) 1, Eosinophils % (Manual) 2, Myelocytes % 2 H, Diff Path Review May , Platelet Estimate ADEQUATE, RBC Morphology NORM C+C 06/14/21 03:40: Sodium 138, Potassium 4.1, Chloride 103, Carbon Dioxide 21.0, Anion Gap 14, BUN 96 H, Creatinine 4.56 H, Estim Creat Clear Calc 13.74, Est GFR (MDRD) Af Amer 14 L, Est GFR (MDRD) Non-Af 11 L, BUN/Creatinine Ratio 21.1 H, Glucose 86, Calcium 7.9 L, Total Bilirubin 0.60, AST 71 H, ALT 46, Alkaline Phosphatase 111, Total Protein 6.6, Albumin 1.3 L, Globulin 5.3 H, Albumin/Globulin Ratio 0.2 L 06/14/21 03:40: APTT 27.2 06/14/21 05:36: POC Glucose 62 L Micro: Microbiology 06/05/21 10:10 Blood Culture (Wb) - Anticubital Right Blood Culture - Final No growth in 5 days. 06/05/21 09:45 Blood Culture (Wb) - Left Wrist Blood Culture - Final No growth in 5 days. 06/05/21 10:10 Urine Catheter - Devries Urine Culture - Final Mixed Gram Positive Organisms Yeast, not Sheree albicans 06/05/21 14:34 Sputum, Induced/Lukens Gram Stain - Final 06/05/21 14:34 Sputum, Induced/Lukens Respiratory Culture - Final Streptococcus group F 06/05/21 10:17 Nasal Secretion SARS-CoV-2 Antigen (Rapid) - Final SARS-CoV-2 (COVID 19) Radiography Diagnostic Testing: Radiology Impression Chest X-Ray 06/13/21 08:47 IMPRESSION: Progressive infiltrates in the left hemithorax. All the support tubes are in good position. Electronically Signed: Quirino Khan MD at 13:02 EST , Service support , Brain CT 06/13/21 12:56 IMPRESSION: Sinusitis. Electronically Signed: Quirino Khan MD at 14:24 EST , Service support , Chest X-Ray 06/13/21 14:40 IMPRESSION: The tip of the endotracheal tube is at 3.1 cm proximally khoi. Stable bilateral pulmonary infiltrates. Electronically Signed: Quirino Khan MD at 15:00 EST , Service support , Physical Exam Const Constitutional Narrative: No ventilator dyssynchrony. RASS -4. Anasarca. General Appearance: intubated and patient mechanically ventilated Nutritional Appearance: obese HEENT normocephalic HEENT Narrative: Nonbleeding laceration to left temporal region Mouth: endotracheal tube in place and OG tube in place Eyes PERRL and conjunctivae normal Neck supple General: trachea midline and CVC in place Chest inspection of chest normal Resp Resp Narrative: Fair vent synchrony Auscultation: diminished lung sounds; Negative for rales, rhonchi or wheezes Cardio regular rate, regular rhythm and no murmurs GI normal to inspection, nondistended, normoactive bowel sounds Extremity Extremity Narrative: Cool to the touch. Some gangrenous changes of the toes?no change compared to previous. Still with pedal pulse General Extremity: cyanosis and edema; Negative for clubbing Skin Skin Narrative: Forearm hematoma. Bulla formation noted on toes. Mild papular rash on the abdomen Neuro Neuro Narrative: No disconjugate gaze noted. Not following commands. Sensorium / Orientation: sedated on vent Charges/Coding Procedures Hospitalists Procedures: 52799 Critial Care 1st Hr
[2021-06-14 08:11] LABS: Bedside Glucose 90 mg/dL (70-110)
[2021-06-14] MEDS: CHLORHEXIDINE GLUC 2% CLOTH 1 EACH TOWELETTE TOPICAL (08:44)
[2021-06-14] MEDS: dexAMETHasone 4 MG/ML Vial 6 MG IV (08:45)
[2021-06-14] MEDS: Nystatin Powder 15gm Bottle 1 APPLIC TOPICAL ×2 (08:45→22:03)
[2021-06-14] MEDS: Chlorhexidine 15 ML PO ×2 (08:49→22:02)
[2021-06-14 12:16] LABS: Bedside Glucose 100 mg/dL (70-110)
--- NOTE | 2021-06-14 12:29 | PN.HOSP_ITS ---
Subjective Subjective Started in HD yesterday. Objective Data Objective Data Vital Signs: Vital Signs Temp Pulse Resp BP Pulse Ox 38.8 C H 117 H 40 H 132/80 H 89 06/14/21 12:00 06/14/21 12:00 06/14/21 12:00 06/14/21 12:00 06/14/21 12:00 Oxygen Delivery Method Mechanical Ventilator Weight: 111.1 kg Body Mass Index (BMI) 35.3 Intake & Output: Intake and Output for Last 24 Hours 06/12/21 06/13/21 06/14/21 23:59 23:59 23:59 Intake Total 3954.90 / 4101.70 3808.02 / 3959.82 2866.70 / 2866.70 Output Total 1250 / 2050 1750 / 2050 950 / 950 Balance 2704.90 / 2051.70 2058.02 / 1909.82 1916.70 / 1916.70 Lab / Micro Data Result Diagrams: 06/14/21 03:40 06/14/21 03:40 Labs: Laboratory Results - last 24 hr 06/13/21 18:47: POC Glucose 151 H 06/13/21 20:13: POC Glucose 135 H 06/13/21 20:30: Procalcitonin 1.77 H, Hep Bs Antigen Non-Reactive 06/13/21 20:30: D-Dimer Quant (PE/DVT) > 20.00 H* 06/13/21 20:30: B-Natriuretic Peptide 185.9 H 06/13/21 20:30: Random Vancomycin 5.8 06/14/21 00:06: POC Glucose 110 06/14/21 03:40: WBC 13.7 H, RBC 2.88 L, Hgb 8.8 L, Hct 28.1 L, MCV 97.6, MCH 30.6, MCHC 31.3 L, RDW Std Deviation 48.6 H, RDW Coeff of Lencho 13.4, Plt Count 207, MPV 11.8, Neut % (Auto) Not Reportable, Absolute Neuts (auto) 11.9 H, Absolute Lymphs (auto) 1.09, Total Counted 100, Neutrophils % (Manual) 81 H, Band Neutrophils % 6 H, Lymphocytes % (Manual) 8 L, Monocytes % (Manual) 1, Eosinophils % (Manual) 2, Myelocytes % 2 H, Diff Path Review May foll, Platelet Estimate ADEQUATE, RBC Morphology NORM C+C 06/14/21 03:40: Sodium 138, Potassium 4.1, Chloride 103, Carbon Dioxide 21.0, Anion Gap 14, BUN 96 H, Creatinine 4.56 H, Estim Creat Clear Calc 13.74, Est GFR (MDRD) Af Amer 14 L, Est GFR (MDRD) Non-Af 11 L, BUN/Creatinine Ratio 21.1 H, Glucose 86, Calcium 7.9 L, Total Bilirubin 0.60, AST 71 H, ALT 46, Alkaline Phosphatase 111, Total Protein 6.6, Albumin 1.3 L, Globulin 5.3 H, Albumin/Globulin Ratio 0.2 L 06/14/21 03:40: APTT 27.2 06/14/21 05:36: POC Glucose 62 L 06/14/21 06:04: POC Glucose 90 06/14/21 11:34: POC Glucose 100 Micro: Microbiology 06/05/21 10:10 Blood Culture (Wb) - Anticubital Right Blood Culture - Final No growth in 5 days. 06/05/21 09:45 Blood Culture (Wb) - Left Wrist Blood Culture - Final No growth in 5 days. 06/05/21 10:10 Urine Catheter - Devries Urine Culture - Final Mixed Gram Positive Organisms Yeast, not Sheree albicans 06/05/21 14:34 Sputum, Induced/Lukens Gram Stain - Final 06/05/21 14:34 Sputum, Induced/Lukens Respiratory Culture - Final Streptococcus group F 06/05/21 10:17 Nasal Secretion SARS-CoV-2 Antigen (Rapid) - Final SARS-CoV-2 (COVID 19) Radiography Diagnostic Testing: Radiology Impression Chest X-Ray 06/13/21 08:47 IMPRESSION: Progressive infiltrates in the left hemithorax. All the support tubes are in good position. Electronically Signed: Quirino Khan MD at 13:02 EST , Service support , Brain CT 06/13/21 12:56 IMPRESSION: Sinusitis. Electronically Signed: Quirino Khan MD at 14:24 EST , Service support , Chest X-Ray 06/13/21 14:40 IMPRESSION: The tip of the endotracheal tube is at 3.1 cm proximally khoi. Stable bilateral pulmonary infiltrates. Electronically Signed: Quirino Khan MD at 15:00 EST , Service support , Physical Exam Narrative Const Constitutional Narrative: Patient is on the vent and sedated General Appearance: well kempt and well developed Orientation / Consciousness: awake, oriented to person, oriented to place and oriented to time HEENT normocephalic and moist oral mucous membranes HEENT Narrative: Patient has a laceration over the left parietal area of the scalp, this laceration is approximated with robert. Eyes PERRL and conjunctivae normal Neck nuchal rigidity, supple, no JVD, thyroid normal and no carotid bruits General: trachea midline Resp normal respiratory effort and clear to auscultation bilaterally Auscultation: Negative for rales, rhonchi or wheezes Cardio regular rate, regular rhythm, S1 normal heart sound, S2 normal heart sound, no murmurs, no rub and no gallops GI normal to inspection, nondistended, normoactive bowel sounds, soft to palpation and non-distended Skin cyanosis and necrosis of toes bilatearlly General Skin Exam: no breakdown Neuro no sensory deficits noted Neuro Narrative: Patient is sedated and on the ventilator Psych thought process normal Psych Narrative: Patient is sedated and on the ventilator Const alert and no apparent distress Constitutional Narrative: intubated and sedated. General Appearance: well kempt and well developed Orientation / Consciousness: awake, oriented to person, oriented to place and oriented to time HEENT normocephalic, head/scalp atraumatic and moist oral mucous membranes Eyes PERRL and conjunctivae normal Eyes Narrative: miotic pupils. absent corneal reflex. Neck nuchal rigidity, no lymphadenopathy, supple, no JVD, thyroid normal and no carotid bruits General: trachea midline Resp normal respiratory effort, no retractions, no use of accessory muscles and clear to auscultation bilaterally Resp Narrative: coarse BS bilaterally. Auscultation: Negative for rales, rhonchi or wheezes Cardio regular rate, regular rhythm, S1 normal heart sound, S2 normal heart sound, no murmurs and no rub GI normal to inspection, nondistended, normoactive bowel sounds, soft to palpation, non-tender and non-distended Extremity normal to inspection and no clubbing, cyanosis or edema Extremity Narrative: edema. General Extremity: edema Skin no rashes or lesions noted Skin Narrative: cyanotic toes bilaterally. General Skin Exam: no breakdown Neuro no sensory deficits noted Neuro Narrative: no clonus. Sensorium / Orientation: awake and alert Speech: speech normal Psych thought process normal and affect normal Psych Narrative: Patient is sedated and on the ventilator Assessment & Plan Assessment/Plan (1) COVID-19: (2) Respiratory failure: QUALIFIERS: Chronicity: acute Respiratory failure complication: hypoxia Qualified Code(s): J96.01 - Acute respiratory failure with hypoxia (3) Seizure: (4) ANAT (acute kidney injury): (5) Laceration of scalp: QUALIFIERS: Encounter type: sequela Qualified Code(s): S01.01XS - Laceration without foreign body of scalp, sequela (6) Diabetes mellitus with hyperglycemia: QUALIFIERS: Diabetes mellitus type: type 2 Diabetes mellitus retirement insulin use: without retirement use Qualified Code(s): E11.65 - Type 2 diabetes mellitus with hyperglycemia PLAN: 1. Acute hypoxic and hypercapnic respiratory failure * 2/2 COVID 19 pneumonia +/- pneumonia * on vent. FiO2 increased today due to tachypnea * on vanc and cefepime, dc if cultures wind up negative. * pulm on for vent mgmt 2. Acute COVID 19 pneumonia * unvaccinated * unknown time of onset of Sx, but her brother said she was well Thanksgiving, but stopped posting to social media after Thanksgiving (he does not know, but suspects she may have been ill shortly afterwards) * on dexamethasone * ID following 3. Seizures * new onset * no prior seizure disorder according to her brother (he himself had childhood epilepsy) * etiology unclear at present: COVID 19, anoxic encephalopathy, TBI * cannot rule out status epilepticus * had events before cefepime started * started on levetiracetam * EEG unavailable at present at [facility] * MRI when HDS * needs transfer to tertiary facility for further neurologic evaluation: EEG, in person neurology * 06/07: accepted by [facility]. Given loading dose of levetiracetam 1500 and maintenance of 500 BID * 06/08: may have had another non-tonic clonic event. still awaiting on bed at * 06/09: no new seizure event. since relatively stable, will order MRI Brain * 06/10: possible seizure on the night of the 6th * Pt has been too tenuous to risk additional imaging. Will try to get CT if can tolerate. Holding off on MRI given tenuous status. * 06/13: CT showed no change 4. ANAT * ongoing * avoid IVF given resp failure and COVID 19 * avoid nephrotoxic agents * monitor * nephrology following: suspect ATN * HD started 06/13 5. Encephalopathy * ongoing * anoxic v metabolic v TBI * needs EEG, which cannot be done here 6. VTE prophylaxis: SCD 7. DM2 * uncontrolled * previously non-insulin dependent * 06/07:insulin glargine 50 BID started * 12.5: glargine increase to 70 BID * 06/09: glargine increased to 90 BID * 06/10: glargine 110 BID 8. Cyanotic toes * worsening * 2/2 COVID 19 v norepinephrine * norepi dc's * podiatry following. Prognosis guarded to poor. Pt accepted as transfer to [facility] on 06/07. I spoke with the attending and fellow at that time. Still awaiting on be. Charges/Coding Visit Charges Inpatient E&M: 59409 Subs Hosp L3
[2021-06-14] MEDS: 0.9% Saline Lock 10 ML Syringe IV (14:02)
[2021-06-14] MEDS: Vital High Protein 1,000 ML 45 ML GT (14:03)
[2021-06-14 14:17] LABS: Partial Thromboplast Time 29.8 Seconds (24.1-36.2)
[2021-06-14] MEDS: Heparin Injection (Vial) 5,000 UNIT/ML VIAL IV ×2 (14:32→21:47)
--- NOTE | 2021-06-14 15:42 | DS.PCM_ITS ---
Providers Date of Admission: 06/05/21 Primary Care Physician: Alexa [facility] Consultations 06/05/21 13:16 Consult: Infectious Disease Routine Consulting Provider: Dariusz Dunham Reason for Consult: COVID-19 EMERGENT Consult: No MD Notified: Yes Date Notified: 06/05/21 Time Notified: 13:00 Method of Notification: Verbal Consult: Snorkelling Instructor / Pulmonary Medicine Routine Consulting Provider: [facility] Reason for Consult: respiratory failure EMERGENT Consult: No MD Notified: Yes Date Notified: 06/05/21 Time Notified: 13:01 Method of Notification: Verbal 06/07/21 06:22 Consult: Nephrology Routine Consulting Provider: [facility] Reason for Consult: ANAT, COVID EMERGENT Consult: Yes MD Notified: Yes Date Notified: 06/07/21 Time Notified: 06:22 Method of Notification: Text 06/11/21 06:57 Consult: Podiatry Routine Consulting Provider: Leonidas De La Torre Reason for Consult: COVID Toes EMERGENT Consult: Yes MD Notified: Yes Date Notified: 06/11/21 Time Notified: 07:04 Method of Notification: Verbal Reason For Visit: RESP FAILURE / COVID 19 PNEUMONIA Diagnosis Discharge Diagnosis (1) COVID-19: Status: Acute Code(s): U07.1 - COVID-19 (2) Respiratory failure: Status: Acute Code(s): J96.90 - Respiratory failure, unspecified, unspecified whether with hypoxia or hypercapnia Qualifiers: Chronicity: acute Respiratory failure complication: hypoxia Qualified Code(s): J96.01 - Acute respiratory failure with hypoxia (3) Seizure: Status: Acute Code(s): R56.9 - Unspecified convulsions (4) ANAT (acute kidney injury): Status: Acute Code(s): N17.9 - Acute kidney failure, unspecified (5) Laceration of scalp: Status: Acute Code(s): S01.01XA - Laceration without foreign body of scalp, initial encounter Qualifiers: Encounter type: sequela Qualified Code(s): S01.01XS - Laceration without foreign body of scalp, sequela (6) Diabetes mellitus with hyperglycemia: Status: Acute Code(s): E11.65 - Type 2 diabetes mellitus with hyperglycemia Qualifiers: Diabetes mellitus type: type 2 Diabetes mellitus fpc insulin use: without buttermaker continuous churn use Qualified Code(s): E11.65 - Type 2 diabetes mellitus with hyperglycemia Medications at Discharge Home Medications losartan 50 mg tablet 25 mg PO DAILY 08/25/17 metformin 1,000 mg tablet 1,000 mg PO BID 08/25/17 oxybutynin chloride 5 mg tablet 5 mg PO BID 08/25/17 cholecalciferol (vitamin D3) 1 cap PO QWEEK 05/08/18 atorvastatin 20 mg PO DAILY 04/14/21 dulaglutide [Trulicity] 1.5 mg SUBCUT QWEEK 04/14/21 glimepiride 2 mg PO DAILY 04/14/21 hydrocodone-acetaminophen 1 tab PO Q6H PRN 3 Days #10 tab 04/14/21 Hospital Course Procedures Dialysis and Intubation Summary of Care Provided Minutes Spent on Discharge: 32 Hospital Course: 1. Acute hypoxic and hypercapnic respiratory failure 2/2 COVID 19 pneumonia +/- pneumonia on vent. FiO2 increased today due to tachypnea on vanc and cefepime, dc if cultures wind up negative. pulm on for vent mgmt 2. Acute COVID 19 pneumonia unvaccinated unknown time of onset of Sx, but her brother said she was well Thanksgiving, but stopped posting to social media after Thanksgiving (he does not know, but suspects she may have been ill shortly afterwards) on dexamethasone ID following 3. Seizures new onset cannot rule out status epilepticus no prior seizure disorder according to her brother (he himself had childhood epilepsy) etiology unclear at present: COVID 19, anoxic encephalopathy, TBI cannot rule out status epilepticus had events before cefepime started started on levetiracetam EEG unavailable at present at [facility] MRI when HDS needs transfer to tertiary facility for further neurologic evaluation: EEG, in person neurology 06/07: accepted by [facility]. Given loading dose of levetiracetam 1500 and maintenance of 500 BID 06/08: may have had another non-tonic clonic event. still awaiting on bed at 06/09: no new seizure event. since relatively stable, will order MRI Brain 06/10: possible seizure on the night of the 6th Pt has been too tenuous to risk additional imaging. Will try to get CT if can tolerate. Holding off on MRI given tenuous status. 06/13: CT showed no change 4. ANAT ongoing avoid IVF given resp failure and COVID 19 avoid nephrotoxic agents monitor nephrology following: suspect ATN HD started 06/13 5. Encephalopathy ongoing anoxic v metabolic v TBI needs EEG, which cannot be done here 6. VTE prophylaxis: SCD 7. DM2 uncontrolled previously non-insulin dependent 06/07:insulin glargine 50 BID started 12.5: glargine increase to 70 BID 06/09: glargine increased to 90 BID 06/10: glargine 110 BID 8. Cyanotic toes worsening /2 COVID 19 v norepinephrine norepi dc's podiatry following. Prognosis guarded to poor. Pt accepted as transfer to [facility] on 06/07. I spoke with the attending and fellow at that time. Bed has becomed available today and patient will be transferred. Weight / BMI Weight Weight: 111.1 kg Body Mass Index (BMI) 35.3 ABG / Lab / Microbiology Data Result Diagrams: 06/14/21 03:40 06/14/21 03:40 Laboratory: Laboratory Results - last 24 hr 06/13/21 18:47: POC Glucose 151 H 06/13/21 20:13: POC Glucose 135 H 06/13/21 20:30: Procalcitonin 1.77 H, Hep Bs Antigen Non-Reactive 06/13/21 20:30: D-Dimer Quant (PE/DVT) > 20.00 H* 06/13/21 20:30: B-Natriuretic Peptide 185.9 H 06/13/21 20:30: Random Vancomycin 5.8 06/14/21 00:06: POC Glucose 110 06/14/21 03:40: WBC 13.7 H, RBC 2.88 L, Hgb 8.8 L, Hct 28.1 L, MCV 97.6, MCH 30.6, MCHC 31.3 L, RDW Std Deviation 48.6 H, RDW Coeff of Lencho 13.4, Plt Count 207, MPV 11.8, Neut % (Auto) Not Reportable, Absolute Neuts (auto) 11.9 H, Absolute Lymphs (auto) 1.09, Total Counted 100, Neutrophils % (Manual) 81 H, Band Neutrophils % 6 H, Lymphocytes % (Manual) 8 L, Monocytes % (Manual) 1, Eosinophils % (Manual) 2, Myelocytes % 2 H, Diff Path Review May foll, Platelet Estimate ADEQUATE, RBC Morphology NORM C+C 06/14/21 03:40: Sodium 138, Potassium 4.1, Chloride 103, Carbon Dioxide 21.0, Anion Gap 14, BUN 96 H, Creatinine 4.56 H, Estim Creat Clear Calc 13.74, Est GFR (MDRD) Af Amer 14 L, Est GFR (MDRD) Non-Af 11 L, BUN/Creatinine Ratio 21.1 H, Glucose 86, Calcium 7.9 L, Total Bilirubin 0.60, AST 71 H, ALT 46, Alkaline Phosphatase 111, Total Protein 6.6, Albumin 1.3 L, Globulin 5.3 H, Albumin/Globulin Ratio 0.2 L 06/14/21 03:40: APTT 27.2 06/14/21 05:36: POC Glucose 62 L 06/14/21 06:04: POC Glucose 90 06/14/21 11:34: POC Glucose 100 06/14/21 14:00: APTT 29.8 Microbiology: Microbiology 06/05/21 10:10 Blood Culture (Wb) - Anticubital Right Blood Culture - Final No growth in 5 days. 06/05/21 09:45 Blood Culture (Wb) - Left Wrist Blood Culture - Final No growth in 5 days. 06/05/21 10:10 Urine Catheter - Devries Urine Culture - Final Mixed Gram Positive Organisms Yeast, not Sheree albicans 06/05/21 14:34 Sputum, Induced/Lukens Gram Stain - Final 06/05/21 14:34 Sputum, Induced/Lukens Respiratory Culture - Final Streptococcus group F 06/05/21 10:17 Nasal Secretion SARS-CoV-2 Antigen (Rapid) - Final SARS-CoV-2 (COVID 19) Meaningful Use Info Meaningful Use Diagnoses (Choose all that apply): None applicable Discharge Plan Admission Admit Date/Time: 06/05/21 12:42 Primary Reason for Your Visit: COVID 19, respiratory failure, seizure Attending Provider: Inocencio Jackson [facility] Consulting Providers: Dariusz Dunham ; Jason Hunter ; Berry Burt ; Ansley Herman NP ; Elizabeth Bond ; Shan Sotomayor ; Cindy Frye ; Ismael Coburn ; Vasquez Whitfield ; Luis Gonzalez ; Ryley Preciado ; Deanna Dempsey ; Leonidas De La Torre Discharge Orders/Prescriptions Prescriptions: No Action metformin 1,000 mg tablet 1,000 mg PO BID RF: 0 losartan 50 mg tablet 25 mg PO DAILY RF: 0 oxybutynin chloride 5 mg tablet 5 mg PO BID RF: 0 cholecalciferol (vitamin D3) 50,000 UNIT capsule 1 cap PO QWEEK RF: 0 hydrocodone-acetaminophen 5-325 mg tablet 1 tab PO Q6H PRN (Reason: pain) 3 Days Qty: 10 RF: 0 atorvastatin 20 mg tablet 20 mg PO DAILY RF: 0 Trulicity 0.75 mg/0.5 mL Pen Injector 1.5 mg SUBCUT QWEEK RF: 0 glimepiride 2 mg tablet 2 mg PO DAILY RF: 0 [facility] - Disposition Disposition (needs filled in before D/C Order can be placed): Acute Care Hospital Charges/Coding Visit Charges Inpatient E&M: 41119 Disch Hosp
[2021-06-14] MEDS: Insulin Lispro 100 UNIT/ML INSULN.PEN SC (17:30)
[2021-06-14 17:41] LABS: Bedside Glucose 205 mg/dL (70-110)
--- NOTE | 2021-06-14 20:04 | DIALYSIS ---
Report from primary RN, Nelia Maria Access: Left IJ CVC. Site benign dry and intact. Connections secure. Hemosafe applied x 2
[2021-06-14 21:13] LABS: Partial Thromboplast Time 35.4 Seconds (24.1-36.2)
[2021-06-14 22:35] LABS: Bedside Glucose 179 mg/dL (70-110)
--- NOTE | 2021-06-14 23:19 | DIALYSIS ---
Hemodialysis x 2.5hrs today. UF -2000ML Pt tolerated tx. Report to CYN Bucio. Pt stable
[2021-06-14] MEDS: Vancomycin IV 1,000 MG/200 ML BAG 200 MG IV (23:27)
[2021-06-15] VITALS: BP 92/57; PULSE 83; RESP 29; TEMP 38.1; O2SAT 91
[2021-06-15 00:11] LABS: Bedside Glucose 105 mg/dL (70-110)
--- NOTE | 2021-06-16 08:50 | CASEMGMT ---
Social Work Pt was transferred to [facility] on 06/15/21. SW called Julia Carty [facility], message left letting her know pt was transferred on 06/15/21. LANA Phelan
[2021-06-17 09:02] LABS: Pathologist Review Reviewed
--- NOTE | 2021-06-19 11:14 | CM.ED ---
SW Note SW received letter from [facility] advising that the referral that this story writer made to [facility] was accepted and Julia Carty was the assigned worker and Caroline Atkinson was tire service supervisor. Jennifer RAM
--- NOTE | 2021-07-08 10:59 | CM.ED ---
SW Note SW received letter from [facility] was received. The case involving patient's son, Ruslan Purvis has been opened to ongoing services. The worker is Faisal Carty [phone] and order department supervisor is Caroline Atkinson [phone]. Jennifer RAM
== END 2021-06-15 00:50 | disposition short-term general hospital (02) | DRG 130 ==
LOC: ED 12:42 → ICU 13:37
PROVIDERS: Hospitalist; Internal Medicine; Internal Medicine Critical Care Medicine; Internal Medicine Infectious Disease; Internal Medicine Nephrology; Admitting Provider Internal Medicine; Emergency Provider Emergency Medicine
DX: U07.1 COVID-19 (principal); J96.02 Acute respiratory failure with hypercapnia; J96.01 Acute respiratory failure with hypoxia; N17.0 Acute kidney failure with tubular necrosis; R56.9 Unspecified convulsions; S50.12XA Contusion of left forearm, initial encounter; S01.01XA Laceration without foreign body of scalp, initial encounter; E11.65 Type 2 diabetes mellitus with hyperglycemia; R32 Unspecified urinary incontinence; B37.2 Candidiasis of skin and nail; G93.1 Anoxic brain damage, not elsewhere classified; J12.82 Pneumonia due to coronavirus disease 2019; E11.649 Type 2 diabetes mellitus with hypoglycemia without coma; E87.2 Acidosis; E11.52 Type 2 diabetes mellitus with diabetic peripheral angiopathy with gangrene; E87.0 Hyperosmolality and hypernatremia; E87.8 Other disorders of electrolyte and fluid balance, not elsewhere classified; R23.3 Spontaneous ecchymoses; R31.9 Hematuria, unspecified; N30.00 Acute cystitis without hematuria; I10 Essential (primary) hypertension; E78.5 Hyperlipidemia, unspecified; E66.9 Obesity, unspecified; W22.8XXA Striking against or struck by other objects, initial encounter; Y92.009 Unspecified place in unspecified non-institutional (private) residence as the place of occurrence of the external cause; Y93.9 Activity, unspecified; Y99.9 Unspecified external cause status; Z79.899 Other long term (current) drug therapy; Z79.4 Long term (current) use of insulin; Z68.35 Body mass index [BMI] 35.0-35.9, adult; Z28.3 Underimmunization status
CPT/HCPCS: 31500; 31720; 36600; 51702; 70450; 71045; 71260; 72125; 73090; 73630; 74177; 80048; 80053; 80202; 80307; 81001; 82009; 82077; 82550; 82803; 82962; 83605; 83690; 83735; 83880; 84100; 84145; 84478; 84484; 85025; 85027; 85379; 85610; 85730; 86140; 87040; 87070; 87077; 87086; 87088; 87205; 87340; 87426; 87641; 90937; 93005; 94002; 94003; 95819; 97802; 97803; 99251; 99285; J2185; J7030; J7040; J7050; Q9967; A4216; C1751; C1752; G0257; G0463; J0696; J1940; J2405; J3010